=== PATIENT | female | born 1990 | race Caucasian/White ===

== ENCOUNTER 2019-03-01 16:51 | Emergency (ER) | payer BC ==
[2019-03-01 16:56] VITALS: BP 145/92; PULSE 94; RESP 18; TEMP 98.9
--- NOTE | 2019-03-01 18:39 | ED ---
General Adult HPI - General Chief complaint: Psychiatric Symptoms Stated complaint: Mental health Time Seen by Provider: 03/01/19 17:04 Source: patient, RN notes reviewed, old records reviewed Mode of arrival: ambulatory Limitations: no limitations - History of Present Illness Initial comments: 28-year-old female patient presents ED chief complaint of depression. Patient reports that she does take a necessary medication however has not been affected. Patient reports that the last 2 days she has been very sad. Crying in her room. Denies any suicidal or homicidal ideation. Denies a plan on hurting himself or hurting any other people. Denies any other complaints. Systemic: Pt denies fatigue, fever/chills, rash. Pt denies weakness, night sweats, weight loss. Neuro: Pt denies headache, visual disturbances, syncope or pre-syncope. HEENT: Pt denies ocular discharge or irritation, otalgia, rhinorrhea, pharyngitis or notable lymphadenopathy. Cardiopulmonary: Pt denies chest pain, SOB, heart palpitations, dyspnea on exertion. Abdominal/GI: Pt denies abdominal pain, n/v/d. : Pt denies dysuria, burning w/ urination, frequency/urgency. Denies new onset urinary or bowel incontinence. MSK: Pt denies myalgia, loss of strength or function in extremities. Neuro: Pt denies new onset weakness, paresthesias. - Related Data Home Medications Medication Instructions Recorded Confirmed Escitalopram [Lexapro] 20 mg PO HS 03/01/19 03/01/19 Omeprazole [PriLOSEC] 20 mg PO AC-BID 03/01/19 03/01/19 Allergies Allergy/AdvReac Type Severity Reaction Status Date / Time amoxicillin Allergy Rash/Hives Verified 03/01/19 18:39 Review of Systems ROS Statement: Those systems with pertinent positive or pertinent negative responses have been documented in the HPI. ROS Other: All systems not noted in ROS Statement are negative. Past Medical History Past Medical History: No Reported History, GERD/Reflux History of Any Multi-Drug Resistant Organisms: None Reported Additional Past Surgical History / Comment(s): cyst removed from hand Past Psychological History: Depression Smoking Status: Never smoker Past Alcohol Use History: None Reported Past Drug Use History: None Reported General Exam - General Exam Comments Initial Comments: Constitutional: NAD, AOX3, Pt has pleasant affect. HEENT: NC/AT, trachea midline, neck supple, no lymphadenopathy. Posterior pharynx non erythematous, without exudates. External ears appear normal, without discharge. Mucous membranes moist. Eyes PERRLA, EOM intact. There is no scleral icterus. No pallor noted. Cardiopulmonary: RRR, no murmurs, rubs or gallops, no JVD noted. Lungs CTAB in anterior and posterior clayton. No peripheral edema. Abdominal exam: Abdomen soft and non-distended. Abdomen non-tender to palpation in all 4 quadrants. Bowel sounds active in LLQ. No hepatosplenomegaly. No ecchymosis Neuro: CN II-XII grossly intact. No nuchal rigidity. No raccon eyes, no aaron sign, no hemotympanum. No cervical spinal tenderness. MSK: No posterior calf tenderness bilaterally, homans sign negative bilaterally. Posterior tibialis and radial pulse +2 bilaterally. Sensation intact in upper and lower extremities. Full active ROM in upper and lower extremities, 5/5 stregnth. Limitations: no limitations Course Vital Signs 03/01/19 16:54 Temperature 98.9 F Pulse Rate 94 Respiratory 18 Rate Blood Pressure 145/92 O2 Sat by Pulse 98 Oximetry Medical Decision Making - Medical Decision Making 28-year-old feel patient can see for evaluation of depression. Denies any suicidal or homicidal ideations. Denies any other complaints. Patient evaluated by psychiatric services. Cleared for discharge. Patient discharged with outpatient follow-up. Return precautions discussed. Case discussed with Dr. Leblanc. Disposition Clinical Impression: Depression Disposition: HOME SELF-CARE Condition: Stable Instructions (If sedation given, give patient instructions): Depression (ED) Additional Instructions: Patient to adhere to previously discussed treatment plan and will take medication(s) as directed. Patient to follow up with PCP in 1-2 days. Patient to return to ED if symptoms do not improve. Return to ER if condition worsens. Is patient prescribed a controlled substance at d/c from ED?: No Referrals: Edwige Dimas MD [Primary Care Provider] - 1-2 days
== END 2019-03-01 20:31 | disposition home or self-care (01) ==
LOC: EC 16:51
DX: F32.9 Major depressive disorder, single episode, unspecified (principal); K21.9 Gastro-esophageal reflux disease without esophagitis; Z79.899 Other long term (current) drug therapy; Z88.0 Allergy status to penicillin
CPT/HCPCS: 82075; 99284

== ENCOUNTER 2020-05-31 13:53 | Outpatient (CLI) | payer BC, OTHER ==
[2020-05-31] MEDS ORDERED: LACTATED RINGERS 1,000 ML IV SCH (15:00)
[2020-05-31 15:50] VITALS: BP 127/82; PULSE 119; RESP 18; TEMP 97.3
--- NOTE | 2020-07-06 19:15 | P.MSEPDOC ---
Presenting Problems - Arrival Data Date of Arrival on Unit: 05/31/20 Time of Arrival on Unit: 13:53 Mode of Transport: Ambulatory - Complaint OB-Reason for Admission/Chief Complaint: Possible Onset of Labor, César Bleeding Medical History - Information : 1 Para: 0 Term: 0 : 0 Abortions: Spontaneous or Elective: 0 Number of Living Children: 0 - Gestational Age Gestational Age by CHUN (wks/days): 33 Weeks and 4 Days Review of Systems - Review of Systems Constitutional: No problems Breast: No problems ENT: No problems Cardiovascular: No problems Respiratory: No problems Gastrointestinal: No problems Genitourinary: No problems Musculoskeletal: No problems Neurological: No problems Skin: No problems Vital Signs - Temperature Temperature: 97.3 F Temperature Source: Temporal Artery Scan - Pulse Right Pulse Rate: 119 Pulse Assessment Method: Automatic Cuff - Respirations Respiratory Rate: 18 Oxygen Delivery Method: Room Air O2 Sat by Pulse Oximetry: 97 - Blood Pressure Right Arm Blood Pressure: 127/82 Blood Pressure Mean: 97 Blood Pressure Source: Automatic Cuff Medical Screen Scoring (Pre) - Cervical Exam Dilation: 0 cm = 0 Membranes: Intact - Uterine Contractions Frequency: < 36 weeks = 6 Duration: > 40 seconds = 2 Intensity: N/A - Maternal Vital Signs Maternal Temperature: N/A Maternal Blood Pressure: N/A Signs of Preeclampsia: N/A Maternal Respirations: N/A - Maternal Trauma Maternal Trauma: N/A - Assessment - Baby A Baseline FHR: 150 Heart Rate - NICHD Category: Category I (Normal) = 0 NST: Reactive Position: N/A Station: N/A - Total Score - Baby A Total Score - Baby A: 8 - Total Score - Baby B Total Score - Baby B: 8 - Total Score - Baby C Total Score - Baby C: 8 - Level of Risk - Baby A Level of Risk - Baby A: Medium (6-9) - Level of Risk - Baby B Level of Risk - Baby B: Medium (6-9) - Level of Risk - Baby C Level of Risk - Baby C: Medium (6-9) Physician Notification (Pre) - Physician Notified Physician Notified Date: 05/31/20 Physician Notified Time: 14:20 New Order Received: Yes - Notification Comment Comment: Obtain FFN, amnisure, and cervical exam. Administer 1L of LR IV. Medical Screen Scoring (Post) - Cervical Exam Dilation: 0 cm = 0 Effacement: Exam Deferred Membranes: Intact - Uterine Contractions Frequency: < 36 weeks = 6 Duration: > 40 seconds = 2 Intensity: N/A - Maternal Vital Signs Maternal Temperature: N/A Maternal Blood Pressure: N/A Signs of Preeclampsia: N/A Maternal Respirations: N/A - Maternal Trauma Maternal Trauma: N/A - Total Score Total Score - Baby A: 8 Total Score - Baby B: 8 Total Score - Baby C: 8 - Post Treatment Level of Risk Post Treatment Level of Risk - Baby A: Medium (6-9) Post Treatment Level of Risk - Baby B: Medium (6-9) Post Treatment Level of Risk - Baby C: Medium (6-9) Physician Notification (Post) - Physician Notified Physician Notified Date: 05/31/20 Physician Notified Time: 15:54 Physician/Practitioner Notified:: Lashay Spoke With: Lashay New Order Received: Yes - Notification Comment Comment: Send FFN for processing. Disposition - Disposition OB Disposition: Triage Discharge Date: 05/31/20 Discharge Time: 17:50 I agree with the RN Medical Screening Exam: No Case reviewed; plan agreed upon as documented in EMR&OBIX.: No Comments: unable to access obix notes Diagnosis: complication
== END 2020-05-31 17:50 | disposition home or self-care (01) ==
LOC: FBPOP 13:53
PROVIDERS: ATTEND Obstetrics & Gynecology Obstetrics
DX: O26.93 Pregnancy related conditions, unspecified, third trimester (principal); Z3A.33 33 weeks gestation of pregnancy
CPT/HCPCS: 59025; 82731; 84112; 96360; 96361; 99213

== ENCOUNTER 2020-07-04 08:26 | Inpatient (IN) | payer OTHER ==
[2020-07-04] MEDS ORDERED: METHYLERGONOVINE 0.2 MG/ML 1 ML AMP IM PRN (09:47)
[2020-07-04] MEDS ORDERED: LIDOCAINE 0.5% (PF) 5 MG/ML (50 ML SDV) SQ PRN (09:47)
[2020-07-04] MEDS ORDERED: OXYTOCIN 10 UNIT/ML 1 ML VIAL IM PRN (09:47)
[2020-07-04] MEDS ORDERED: TERBUTALINE 1 MG/ML VIAL SQ PRN (09:47)
[2020-07-04] MEDS ORDERED: CARBOPROST TROMETHAMINE 250 MCG/ML 1 ML AMP IM PRN (09:47)
[2020-07-04] MEDS ORDERED: OXYTOCIN 30 UNITS/500 ML NS 30 UNIT in SALINE 1 500ML.BAG IV SCH ×2 (10:00→23:00)
[2020-07-04] MEDS: LACTATED RINGERS 1,000 ML IV SCH ×2 (10:37→16:58)
[2020-07-04 10:40] LABS: Basophils % (A) 0 %; Eosinophils # (A) 0.1 k/uL (0-0.7); Eosinophils % (A) 1 %; HCT 28.3 % (34.0-46.0); HGB 8.9 gm/dL (11.4-16.0); Hypochromasia Marked; Lymphocytes # (A) 1.4 k/uL (1.0-4.8); Lymphocytes % (A) 12 %; MCH 23.1 pg (25.0-35.0); MCHC 31.6 g/dL (31.0-37.0); Mean Platelet Volume 7.1; Microcytosis Slight; Monocytes # (A) 0.7 k/uL (0-1.0); Monocytes % (A) 6 %; Neutrophils # (A) 9.1 k/uL (1.3-7.7); Neutrophils % (A) 80 %; Platelet Count 374 k/uL (150-450); Poikilocytosis Slight; RBC 3.87 m/uL (3.80-5.40); RDW 14.7 % (11.5-15.5); WBC 11.4 k/uL (3.8-10.6)
[2020-07-04] MEDS ORDERED: BUTORPHANOL 1 MG/ML 1 ML VIAL IV PRN (13:38)
--- NOTE | 2020-07-04 13:43 | P.HPOB ---
History of Present Illness H&P Date: 07/04/20 Chief Complaint: 38-3/7 weeks, spontaneous rupture of membranes The patient is a 30-year-old 1 para 0 admitted at 38-3/7 weeks as established by first trimester ultrasound. She is admitted with documented spontaneous rupture of membranes and the category 1 heart rate tracing. Her has been essentially uncomplicated though she was treated with omeprazole for gastroesophageal reflux. She additionally has a history of depression. She is not currently taking any medications. She is known to be group B strep positive. Obstetrical history: 1 para 0 with current statistics listed in history present illness. EDC of 07/15/2020 was established by early ultrasound. Laboratory workup done Schutze blood type of O+ with a negative antibody screen. Rubella status is immune. Remainder of the laboratory workup was within normal limits. Early Glucola as well as second trimester Glucola were within normal limits and group B strep status is positive. Gynecologic history: Unremarkable with no history of any infections to include STDs. Review of Systems Review of systems is confined to history of present illness. Past Medical History Past Medical History: No Reported History, GERD/Reflux History of Any Multi-Drug Resistant Organisms: None Reported Additional Past Surgical History / Comment(s): cyst removed from hand Past Psychological History: Depression Smoking Status: Never smoker Past Alcohol Use History: None Reported Past Drug Use History: None Reported - Past Family History Mother Family Medical History: Diabetes Mellitus, GERD/Reflux Medications and Allergies Home Medications Medication Instructions Recorded Confirmed Type Omeprazole [PriLOSEC] 20 mg PO AC-BID 03/01/19 07/04/20 History Pnv,Calcium 72/Iron/Folic Acid 1 tab PO DAILY 05/31/20 05/31/20 History [ Plus Tablet] Sertraline [Zoloft] 50 mg PO DAILY 07/04/20 07/04/20 History Allergies Allergy/AdvReac Type Severity Reaction Status Date / Time amoxicillin Allergy Rash/Hives Verified 07/04/20 08:50 Exam Vital Signs Temp Pulse Resp BP Pulse Ox 07/04/20 09:46 98.4 F 80 16 142/93 07/04/20 08:53 98.4 F 94 16 148/92 97 Intake and Output 07/03/20 07/04/20 07/04/20 22:59 06:59 14:59 Other: Weight 133.356 kg In general, this is a well-developed, obese white female in no acute distress. Her heart has a regular rhythm and rate without murmur. Her lungs are clear to auscultation bilaterally in all clayton. Her abdomen is obese, gravid, nondistended, has normal active bowel sounds, soft, nontender, and without any palpable masses aside from the uterine fundus. Her extremities are without any cyanosis, clubbing, or significant edema and are nontender to palpation bilaterally. Digital cervical examination demonstrates the cervix to be closed, approximately 70%, the vertex in presentation at -3 station. Spontaneous rupture of membranes is documented. Results Result Diagrams: 07/04/20 10:09 Abnormal Lab Results - Last 24 Hours (Table) 07/04/20 Range/Units 10:09 WBC 11.4 H (3.8-10.6) k/uL Hgb 8.9 L (11.4-16.0) gm/dL Hct 28.3 L (34.0-46.0) % MCV 73.0 L (80.0-100.0) fL MCH 23.1 L (25.0-35.0) pg Neutrophils # 9.1 H (1.3-7.7) k/uL Assessment and Plan (1) Spontaneous rupture of membranes Current Visit: Yes Status: Acute Code(s): [id number] - SNOMED Code(s): 302544703 (2) with 38 completed weeks gestation Current Visit: Yes Status: Acute Code(s): Z3A.38 - 38 WEEKS GESTATION OF SNOMED Code(s): 95396377 (3) Mother positive for group B Streptococcus colonization Current Visit: Yes Status: Acute Code(s): P00.2 - AFFECTED BY MATERNAL INFEC/PARASTC DISEASES SNOMED Code(s): 50271731781078 Plan: The patient is admitted for active management of labor. Antibody prophylaxis has been started for group B strep per she has also had Pitocin augmentation started as she was ayala rather minimally despite rupture of membranes since this morning. She will have close maternal and surveillance and expectant management will be practiced. Her blood pressures have been slightly elevated but there are no other secondary signs of preeclampsia or any other concerns for same. The patient is a good candidate for either IV or epidural analgesia, whichever she may choose.
[2020-07-04 18:04] LABS: ALT 15 U/L (4-34); AST 22 U/L (14-36); African American GFR (CKD) >90 (>60 ml/min/1.73 sqM); Blood Urea Nitrogen 6 mg/dL (7-17); Non-African American GFR(CKD) >90 (>60 ml/min/1.73 sqM); Uric Acid 6.4 mg/dL (3.7-7.4)
[2020-07-04 18:14] LABS: INR 0.9 (<1.2); Prothrombin Time 10.1 sec (9.0-12.0)
[2020-07-04] MEDS ORDERED: LABETALOL 100 MG TAB PO ONE (20:38)
[2020-07-04] MEDS ORDERED: LABETALOL 5 MG/ML VIAL MDV IVP PRN ×3 (20:56)
[2020-07-04] MEDS ORDERED: hydrALAZINE HCL 20 MG/ML 1 ML VIAL IVP PRN (20:56)
[2020-07-04] MEDS ORDERED: fentaNYL (PF) 50 MCG/ML 5 ML AMP ONE (21:00)
[2020-07-04] MEDS ORDERED: ROPIVACAINE 5MG/ML 20ML VIAL ONE (21:00)
[2020-07-04] MEDS ORDERED: SODIUM CHLORIDE 0.9% 100 ML BAG ONE (21:00)
[2020-07-04] MEDS ORDERED: ceFAZolin 3 GM in SODIUM CHLORIDE 0.9% 100 ML IVPB ONE (21:41)
[2020-07-04] MEDS ORDERED: CITRIC ACID-SODIUM CITRATE 15 ML CUP PO ONE (21:41)
[2020-07-04] MEDS ORDERED: KETOROLAC 15 MG/ML 1 ML VIAL ONE (21:59)
[2020-07-04] MEDS ORDERED: ONDANSETRON 4 MG/2 ML VIAL ONE (21:59)
[2020-07-04] MEDS ORDERED: diphenhydrAMINE 50 MG/ML 1 ML VIAL ONE (21:59)
[2020-07-04] MEDS ORDERED: PHENYLEPHRINE-0.9% NACL SYG 1,000 MCG/10 ML SYRINGE ONE (21:59)
[2020-07-04] MEDS ORDERED: OXYTOCIN 10 UNIT/ML 1 ML VIAL ONE (21:59)
[2020-07-04] MEDS ORDERED: HYDROcodone/APAP 7.5-325MG 1 EACH TAB PO PRN (22:52)
[2020-07-04] MEDS ORDERED: ACETAMINOPHEN TAB 325 MG TAB PO PRN (22:52)
[2020-07-04] MEDS ORDERED: diphenhydrAMINE 50 MG/ML 1 ML VIAL IVP PRN ×2 (22:52)
[2020-07-04] MEDS ORDERED: SIMETHICONE 80 MG CHEWABLE PO PRN (22:52)
[2020-07-04] MEDS ORDERED: diphenhydrAMINE 50 MG CAP PO PRN (22:52)
[2020-07-04] MEDS ORDERED: LANOLIN CREAM 5 GM TUBE TOPICAL PRN (22:52)
[2020-07-04] MEDS ORDERED: KETOROLAC 15 MG/ML 1 ML VIAL IVP PRN (22:52)
[2020-07-04] MEDS ORDERED: NALOXONE 0.4 MG/ML 1 ML VIAL IV PRN (22:52)
[2020-07-04] MEDS ORDERED: ZOLPIDEM 5 MG TAB PO PRN (22:52)
[2020-07-04] MEDS ORDERED: METOCLOPRAMIDE 5 MG/ML 2 ML VIAL IVP PRN (22:52)
[2020-07-04] MEDS ORDERED: ONDANSETRON 4 MG/2 ML VIAL IVP PRN (22:52)
[2020-07-04] MEDS ORDERED: diphenhydrAMINE 25 MG CAP PO PRN (22:52)
[2020-07-04] MEDS ORDERED: MAGNESIUM SULFATE-WATER PMX 4 GM in WATER FOR INJECTION 1 100ML.BAG IVPB ONE (22:55)
--- NOTE | 2020-07-04 23:05 | P.OP ---
Date of Procedure: 07/04/20 Preoperative Diagnosis: #1. 38-3/7 weeks, spontaneous rupture of membranes #2. Severe preeclampsia remote from delivery #3. Arrest of dilation and descent Postoperative Diagnosis: Same plus #4. Occiput transverse position Procedure(s) Performed: #1. Primary low transverse section Anesthesia: epidural Surgeon: Segundo Hargrove Rail Bonder #1: Emerson Rodriguez Estimated Blood Loss (ml): 550 IV fluids (ml): 500 Urine output (ml): 50 Pathology: other (Placenta) Condition: stable Disposition: floor Operative Findings: Preoperatively, the patient had been admitted to the hospital at 38-3/7 weeks with documented spontaneous rupture of membranes and her cervix closed, 70%, with the vertex in presentation at -3 station or higher. She was started on antibody prophylaxis for group B strep. She additionally had Pitocin augmentation started. She made very minimal progress throughout the day and had been ruptured for approximate 17 hours at the time of surgery. Prior to the decision to proceed with surgery, she began to have moderately elevated blood pressures. Upon admission, her blood pressures were in the range of 1:30 to 140/70-80. Later in the day, they were as high as 160-170 and even 180/80 to 100s. Oral Lisa ball had been administered at the onset of the elevation in blood pressure with a continued to rise. As result, the 18 was called to administer labetalol and the patient was requesting an epidural. Epidural was placed first and failed to lower her blood pressures any perceivable way. Her cervical check demonstrated the cervix to be minimally changed throughout the day with the vertex in presentation at -3-4 station. She also carried the diagnosis of probable macrosomia. Given these findings with a new diagnosis of severe preeclampsia based solely on blood pressures and her remoteness from delivery in the face of macrosomia, the decision was made to proceed with primary low-transverse section. She was taken the operating room where she was delivered of a viable 8 lbs. 9 oz. baby boy with Apgars of 9 at 1 minute and 9 at 5 minutes delivered in the right occiput transverse position. The placenta was delivered manually, intact, and grossly normal with a grossly normal three-vessel cord. The uterus, tubes, and ovaries were entirely normal to inspection. Description of Procedure: The patient was prepped and draped in usual fashion after epidural anesthesia was bolused by the anesthesiologist. A Pfannenstiel incision was made and extended into the abdominal cavity without difficulty. The bladder peritoneum was elevated, incised, and reflected distally. A 2 cm incision was made in the transverse plane to enter the uterus in the lower uterine segment. Clear fluid was noted again. The incision was extended in both directions using the bandage scissors. The head was delivered up through the incision where the nose and mouth were thoroughly suctioned. The remainder of the was delivered onto the field where the cord was doubly clamped, cut, and the passed resuscitative measures with weight and Apgars as noted above. cord blood was collected. A segment of cord was doubly clamped, cut, and set aside should cord gases become necessary. The placenta was delivered manually and intact as noted above. The uterus was exteriorized and the interior cavity the uterus swept of any remaining placental or membranous fragments. The margins of the incision were grasped with anything clamps and the incision closed in 2 layers. The first layer was a running locking stitch of 0 chromic catgut from margin to margin followed by a running imbricating stitch of 0 chromic catgut from margin to margin. Hemostasis appeared to be excellent. The posterior cul-de-sac was suctioned with a guard and the uterine and ovarian findings were normal as noted above. The uterus was replaced within the abdominal cavity and the gutters swept of any remaining blood, fluid, or clot. The incision was reexamined and found to be hemostatic. The parietal peritoneum was loosely reapproximated and layer of muscles examined and made hemostatic with the Bovie. The fascia was closed with 2 running stitches of 0 Vicryl proceeding from the lateral margins to the midpoint. The subcutaneous tissues were irrigated, made hemostatic with the Bovie, and reapproximated with a running stitch of 30 plain catgut. The skin was reapproximated with a running subcuticular stitch of 4-0 Vicryl followed by half-inch Steri-Strips placed with Mastisol. Estimated blood loss for the case was approximate 550 mL. All sponge, instrument, needle counts were correct. There were no complications. The patient tolerated the procedure well and proceeded to the recovery room in stable condition. Both mother and are resting comfortably in recovery.
[2020-07-05] MEDS: MAGNESIUM SULFATE-WATER PMX 20 GM in WATER FOR INJECTION 1 500ML.BAG IV SCH ×3 (00:24→18:43)
[2020-07-05] MEDS: LACTATED RINGERS 1,000 ML IV SCH ×2 (02:57→06:14)
[2020-07-05 07:16] LABS: Basophils % (A) 0 %; Eosinophils % (A) 0 %; HCT 26.4 % (34.0-46.0); Hypochromasia Marked; Lymphocytes # (A) 1.3 k/uL (1.0-4.8); Lymphocytes % (A) 10 %; MCH 22.7 pg (25.0-35.0); MCHC 30.4 g/dL (31.0-37.0); MCV 74.5 fL (80.0-100.0); Mean Platelet Volume 6.8; Microcytosis Slight; Monocytes # (A) 0.6 k/uL (0-1.0); Monocytes % (A) 5 %; Neutrophils # (A) 10.9 k/uL (1.3-7.7); Neutrophils % (A) 83 %; Platelet Count 337 k/uL (150-450); Poikilocytosis Slight; RBC 3.55 m/uL (3.80-5.40); WBC 13.1 k/uL (3.8-10.6)
--- NOTE | 2020-07-05 10:18 | P.PNOBGPC ---
Subjective - Subjective Interval history: The patient denies any significant symptoms for magnesium and is tolerating it well. She does report that she is hungry and would like to eat. She also feels more than capable of getting up to use the bathroom on her own. Patient reports: Reports appetite normal, Reports voiding normally, Reports pain well controlled, Reports ambulating normally (Remains at relative bedrest secondary to magnesium sulfate and preeclamptic concerns.) : doing well Objective - Vital Signs Latest vital signs: Vital Signs Temp Pulse Pulse Resp BP Pulse Ox 07/05/20 09:00 99.0 F 96 16 140/94 99 07/05/20 08:00 18 07/05/20 07:00 101 H 16 134/73 98 07/05/20 06:00 102 H 16 131/67 97 07/05/20 05:00 109 H 16 133/87 97 07/05/20 04:00 109 H 16 128/68 96 07/05/20 03:08 97.1 F L 108 H 16 126/68 97 07/05/20 02:00 98.1 F 110 H 16 137/78 97 07/05/20 01:30 104 H 16 140/74 07/05/20 01:04 113 H 16 133/76 98 07/05/20 01:01 107 H 16 133/76 97 07/05/20 00:46 104 H 16 133/79 98 07/05/20 00:34 97.7 F 106 H 16 131/76 98 07/05/20 00:31 107 H 16 131/76 98 07/05/20 00:16 109 H 16 129/83 98 07/05/20 00:04 107 H 16 138/72 97 07/05/20 00:01 103 H 103 H 16 138/72 97 07/05/20 00:00 103 H 16 138/72 07/04/20 23:49 105 H 16 143/81 96 07/04/20 23:34 98 16 138/83 99 07/04/20 23:19 97.4 F L 95 16 134/80 100 07/04/20 23:04 96.9 F L 97 16 138/96 100 Intake and Output 07/04/20 07/05/20 07/05/20 22:59 06:59 14:59 Intake Total 748.333 Output Total 1500 350 Balance -1500 398.333 Intake: IV 160 Intake, IV Titration 438.333 Amount Magnesium Sulfate-Water 438.333 Pmx 20 gm In Water For Injection 1 500ml.bag @ 2 GM/HR 50 mls/hr IV .Q10H [facility] Rx#:[id number] Oral 150 Output: Urine 950 350 Estimated Blood Loss 550 Other: Voiding Method Indwelling Catheter # Voids 1 1 - Exam Extremities: Present: normal Abdomen: Present: normal appearance, soft. Absent: distention, tenderness Incision: Present: normal, dry, intact Uterus: Present: normal, firm (The uterine fundus is tonic and appropriately tender just below the umbilicus.) - Labs Labs: Abnormal Lab Results - Last 24 Hours (Table) 07/04/20 07/04/20 07/04/20 Range/Units 10:09 17:36 17:36 WBC 11.4 H (3.8-10.6) k/uL RBC (3.80-5.40) m/uL Hgb 8.9 L (11.4-16.0) gm/dL Hct 28.3 L (34.0-46.0) % MCV 73.0 L (80.0-100.0) fL MCH 23.1 L (25.0-35.0) pg MCHC (31.0-37.0) g/dL Neutrophils # 9.1 H (1.3-7.7) k/uL APTT 19.0 L (22.0-30.0) sec BUN 6 L (7-17) mg/dL 07/05/20 Range/Units 06:59 WBC 13.1 H (3.8-10.6) k/uL RBC 3.55 L (3.80-5.40) m/uL Hgb 8.0 L (11.4-16.0) gm/dL Hct 26.4 L (34.0-46.0) % MCV 74.5 L (80.0-100.0) fL MCH 22.7 L (25.0-35.0) pg MCHC 30.4 L (31.0-37.0) g/dL Neutrophils # 10.9 H (1.3-7.7) k/uL APTT (22.0-30.0) sec BUN (7-17) mg/dL Assessment and Plan (1) Spontaneous rupture of membranes Current Visit: Yes Status: Acute Code(s): [id number] - SNOMED Code(s): 147648573 (2) with 38 completed weeks gestation Current Visit: Yes Status: Acute Code(s): Z3A.38 - 38 WEEKS GESTATION OF SNOMED Code(s): 27527105 (3) Mother positive for group B Streptococcus colonization Current Visit: Yes Status: Acute Code(s): P00.2 - AFFECTED BY MATERNAL INFEC/PARASTC DISEASES SNOMED Code(s): 25590821627015 (4) Preeclampsia Current Visit: Yes Status: Acute Code(s): O14.90 - UNSPECIFIED PRE-ECLAMP NORMA, UNSPECIFIED TRIMESTER SNOMED Code(s): 219021574 (5) Status post section Current Visit: Yes Status: Acute Code(s): Z98.891 - HISTORY OF UTERINE SCAR FROM PREVIOUS SURGERY SNOMED Code(s): 475237404 Plan: Continue magnesium sulfate until 24 hours , proximal 2300 tonight. I will have advanced her diet to regular and have asked the nurse to discontinue extra IV fluids and continue only with magnesium. Montero catheter can also be removed so long as the patient is able to ambulatory the bathroom adequately. Blood pressures at this time remain in the stable range without any additional medications. We will watch closely as she comes off of magnesium tonight.
[2020-07-05] MEDS: IBUPROFEN 600 MG TAB PO PRN ×2 (14:11→21:19)
[2020-07-05] MEDS: SENNOSIDES-DOCUSATE SODIUM 1 EACH TAB PO SCH ×2 (18:47→21:19)
[2020-07-06] MEDS: HYDROcodone/APAP 5-325MG 1 EACH TAB PO PRN ×2 (03:47→08:18)
[2020-07-06] MEDS: SENNOSIDES-DOCUSATE SODIUM 1 EACH TAB PO SCH ×2 (08:18→21:05)
--- NOTE | 2020-07-06 09:12 | P.PNOBGPC ---
Subjective - Subjective Principal diagnosis: POD 2 LTCS, severe preeclampsia Interval history: Patient did well overnight, she is ambulating and voiding without difficulty. She states she is feeling well and pain is well-controlled. She is tolerating a regular diet without nausea or vomiting. Blood pressures remained 130s over 80s to 90s. Patient reports: Reports appetite normal, Reports voiding normally, Reports pain well controlled, Reports ambulating normally : doing well, nursing well, bottle feeding Objective - Vital Signs Latest vital signs: Vital Signs Temp Pulse Resp BP Pulse Ox 07/06/20 08:24 97.7 F 88 16 134/93 07/05/20 23:00 98.5 F 100 16 133/81 07/05/20 22:00 98.1 F 104 H 16 130/88 07/05/20 21:00 97.5 F L 118 H 16 139/85 07/05/20 20:00 97.5 F L 99 16 139/86 07/05/20 19:00 102 H 16 140/88 99 07/05/20 17:53 98.2 F 97 16 140/96 07/05/20 16:59 103 H 16 142/92 99 07/05/20 15:30 98.3 F 103 H 18 138/88 99 07/05/20 14:00 99 18 136/86 99 07/05/20 13:00 98.3 F 96 16 144/90 99 07/05/20 12:00 98.1 F 103 H 16 140/100 99 07/05/20 11:00 98.5 F 94 16 136/88 07/05/20 10:00 109 H 16 99 Intake and Output 07/05/20 07/06/20 07/06/20 22:59 06:59 14:59 Intake Total 967.5 480 Output Total 2700 0 Balance -1732.5 0 480 Intake: IV 300 Intake, IV Titration 477.5 Amount Magnesium Sulfate-Water 477.5 Pmx 20 gm In Water For Injection 1 500ml.bag @ 2 GM/HR 50 mls/hr IV .Q10H [facility] Rx#:[id number] Oral 190 480 Output: Urine 2700 0 Other: # Voids 1 0 - Exam Extremities: Present: normal, edema Abdomen: Present: normal appearance Incision: Present: normal Uterus: Present: normal, firm Assessment and Plan (1) Arrest of descent, delivered, current hospitalization Current Visit: Yes Status: Acute Code(s): O62.1 - SECONDARY UTERINE INERTIA SNOMED Code(s): 99878347 (2) Arrest of dilation, delivered, current hospitalization Current Visit: Yes Status: Acute Code(s): O62.1 - SECONDARY UTERINE INERTIA SNOMED Code(s): 14494229 (3) malposition, delivered, current hospitalization Current Visit: Yes Status: Acute Code(s): O32.9XX0 - MATERNAL CARE FOR MALPRESENTATION OF FETUS, UNSP, UNSP SNOMED Code(s): 561862874 (4) Mother positive for group B Streptococcus colonization Current Visit: Yes Status: Acute Code(s): P00.2 - AFFECTED BY MATERNAL INFEC/PARASTC DISEASES SNOMED Code(s): 57123761327174 (5) Preeclampsia Current Visit: Yes Status: Acute Code(s): O14.90 - UNSPECIFIED PRE-ECLAMPSI A, UNSPECIFIED TRIMESTER SNOMED Code(s): 156075921 (6) with 38 completed weeks gestation Current Visit: Yes Status: Acute Code(s): Z3A.38 - 38 WEEKS GESTATION OF SNOMED Code(s): 19507400 (7) Spontaneous rupture of membranes Current Visit: Yes Status: Acute Code(s): AND6047 - SNOMED Code(s): 551789043 Plan: Patient continues to do well postoperatively. We will monitor blood pressures today and consider labetalol if needed. Anticipate discharge home tomorrow
[2020-07-06] MEDS ORDERED: SERTRALINE 50 MG TAB PO SCH ×2 (09:45→10:13)
[2020-07-06] MEDS: LABETALOL 100 MG TAB PO SCH ×2 (10:10→21:04)
[2020-07-06] MEDS: IBUPROFEN 600 MG TAB PO PRN ×2 (10:17→16:48)
[2020-07-07] MEDS: IBUPROFEN 600 MG TAB PO PRN (03:18)
--- NOTE | 2020-07-07 08:25 | P.DS ---
Providers Date of admission: 07/04/20 09:16 Expected date of discharge: 07/07/20 Attending physician: Lala Alamo Primary care physician: Stated None - Discharge Diagnosis(es) (1) Arrest of descent, delivered, current hospitalization Current Visit: Yes Status: Acute (2) Arrest of dilation, delivered, current hospitalization Current Visit: Yes Status: Acute (3) malposition, delivered, current hospitalization Current Visit: Yes Status: Acute (4) Mother positive for group B Streptococcus colonization Current Visit: Yes Status: Acute (5) Preeclampsia Current Visit: Yes Status: Acute (6) with 38 completed weeks gestation Current Visit: Yes Status: Acute (7) Spontaneous rupture of membranes Current Visit: Yes Status: Acute Hospital Course: This is a 30-year-old 1 para 0 that presented to labor and delivery at 38-3/7 weeks with spontaneous rupture of membranes. Patient was admitted to labor and delivery and made very slow progress throughout labor. Patient was known to be group beta strep positive therefore antibiotics prophylaxis was begun. During labor patient was noted to have elevated blood pressures, patient was diagnosed with severe preeclampsia and decision was made for primary C- section secondary to remote from delivery. Patient agreed with the decision and was taken back for a primary . was performed without difficulty for further details on the please see the operative report. Patient delivered a liveborn male 8 lbs. 9 oz. with Apgars of 9 and 9 at one and 5 minutes respectively. Patient's postoperative course has been uneventful. Patient did receive magnesium for 24 hours postdelivery secondary to diagnosis of preeclampsia. Patient was started on labetalol 100 mg twice daily in addition for blood pressures 130s to 140s over 90s. Patient is feeling well. On this postoperative day #3. She is ambulating and voiding without difficulty. She is tolerating a regular diet without nausea or vomiting. She states her pain is well-controlled and she would like discharge home today. Patient Condition at Discharge: Good Plan - Discharge Summary New Discharge Prescriptions: No Action Omeprazole [PriLOSEC] 20 mg PO AC-BID Pnv,Calcium 72/Iron/Folic Acid [ Plus Tablet] 1 tab PO DAILY Sertraline [Zoloft] 50 mg PO DAILY Discharge Medication List Omeprazole [PriLOSEC] 20 mg PO AC-BID 10/12/19 [History] Pnv,Calcium 72/Iron/Folic Acid [ Plus Tablet] 1 tab PO DAILY 05/31/20 [History] Sertraline [Zoloft] 50 mg PO DAILY 07/04/20 [History] Follow up Appointment(s)/Referral(s): Lala Alamo DO [Doctor of Osteopathic Medicine] - 1 Week Patient Instructions/Handouts: (DC), (GEN) Activity/Diet/Wound Care/Special Instructions: Patient can expect menstrual-like bleeding for 4-6 weeks postdelivery, she is to continue with labetalol 100 mg twice daily. She is to call the office should she experience headaches unrelieved by Tylenol, abdominal pain not associated with incisional pain or other concerns. She is to be seen 1 week postoperatively for blood pressure check and routine postoperative check. Discharge Disposition: HOME SELF-CARE
[2020-07-07] MEDS ORDERED: PRENATAL VIT-IRON-FOLIC ACID 1 EACH CAP PO SCH (09:00)
[2020-07-07 11:49] VITALS: BP 146/84; PULSE 91; RESP 18; TEMP 98.4
[2020-07-07] MEDS: LABETALOL 100 MG TAB PO SCH (12:06)
[2020-07-07] MEDS: SENNOSIDES-DOCUSATE SODIUM 1 EACH TAB PO SCH (12:15)
== END 2020-07-07 12:05 | disposition home or self-care (01) | DRG 788 ==
LOC: FBPOP 08:26 → 4FBP 09:16
PROVIDERS: ADMIT Obstetrics & Gynecology; ATTEND Obstetrics & Gynecology Obstetrics
PROC: 10D00Z1 Extraction of Products of Conception, Low, Open Approach (ICD-10-PCS; principal; 2020-07-04 22:35)
DX: O99.824 Streptococcus B carrier state complicating childbirth (principal); O14.14 Severe pre-eclampsia complicating childbirth; Z3A.38 38 weeks gestation of pregnancy; Z37.0 Single live birth; O99.62 Diseases of the digestive system complicating childbirth; O62.1 Secondary uterine inertia; K21.9 Gastro-esophageal reflux disease without esophagitis; O99.344 Other mental disorders complicating childbirth; F32.9 Major depressive disorder, single episode, unspecified; O99.214 Obesity complicating childbirth; O36.63X0 Maternal care for excessive fetal growth, third trimester, not applicable or unspecified; O32.2XX0 Maternal care for transverse and oblique lie, not applicable or unspecified; Z79.899 Other long term (current) drug therapy; Z83.3 Family history of diabetes mellitus; Z83.79 Family history of other diseases of the digestive system; Z88.0 Allergy status to penicillin; Z98.890 Other specified postprocedural states; E66.9 Obesity, unspecified
CPT/HCPCS: 59025; 82565; 84112; 84450; 84460; 84520; 84550; 85025; 85610; 85730; 86850; 86900; 86901; 88307; 99213

== ENCOUNTER → 2021-09-16 | Outpatient (CLI) | payer OTHER ==
--- NOTE | 2021-09-16 17:28 | US ---
EXAMINATION TYPE: US transvaginal DATE OF EXAM: 09/16/2021 COMPARISON: NONE CLINICAL HISTORY: R10.2 PELVIC PAIN. TECHNIQUE: TV. Transabdominal sonographic images of the pelvis were acquired. Transvaginal sonogra phic images were medically necessary to better assess the following anatomy: EXAM MEASUREMENTS: Uterus: 8.4 x 4.6 x 6.1 cm Endometrial Stripe: 1.1 cm Right Ovary: 1.9 x 1.3 x1.2 cm Left Ovary: 2.3 x 1.9 x 2.7 cm 1. Uterus: Anteverted wnl 2. Endometrium: wnl 3. Right Ovary: wnl 4. Left Ovary: wnl 5. Bilateral Adnexa: wnl 6. Posterior cul-de-sac: wnl IMPRESSION: Normal transvaginal pelvic sonogram.
== END | disposition home or self-care (01) ==
LOC: RADUSWWP 17:02
PROVIDERS: ATTEND Obstetrics & Gynecology Obstetrics
DX: R10.2 Pelvic and perineal pain (principal)
CPT/HCPCS: 76830

== ENCOUNTER → 2022-04-21 | Outpatient (CLI) | payer MEDICAID ==
[2022-04-21 23:15] LABS: Basophils # (A) 0.06 X 10*3/uL (0.00-0.10); Basophils % (A) 0.6 %; Eosinophils # (A) 0.28 X 10*3/uL (0.04-0.35); Eosinophils % (A) 2.7 %; HCT 35.1 % (37.2-46.3); HGB 10.3 g/dL (12.0-15.0); Immature Grans, Automated 0.4 %; Lymphocytes # (A) 2.05 X 10*3/uL (0.90-5.00); Lymphocytes % (A) 20.1 %; MCH 22.8 pg (27.0-32.0); MCHC 29.3 g/dL (32.0-37.0); MCV 77.8 fL (80.0-97.0); Mean Platelet Volume 10.1 fL (9.5-12.2); Monocytes # (A) 0.61 X 10*3/uL (0.20-1.00); NRBC Per 100 WBC 0 /100 WBCS (0.0-0.0); Neutrophils # (A) 7.15 X 10*3/uL (1.80-7.70); Neutrophils % (A) 70.2 %; Platelet Count 440 X 10*3/uL (140-440); RBC 4.51 X 10*6/uL (4.10-5.20); RDW 15.7 % (11.5-14.5); WBC 10.19 X 10*3/uL (4.50-10.00)
[2022-04-21 23:58] LABS: % Iron Saturation 4.54 (12.00-45.00); Ferritin 28.8 ng/mL (10.0-291.0)
== END | disposition home or self-care (01) ==
LOC: LABWHC1 15:22
PROVIDERS: ATTEND Internal Medicine
DX: D50.0 Iron deficiency anemia secondary to blood loss (chronic) (principal)
CPT/HCPCS: 36415; 82607; 82728; 82746; 83540; 83550; 85025

== ENCOUNTER → 2023-01-05 | Outpatient (CLI) | payer MEDICAID ==
--- NOTE | 2023-01-05 16:04 | XR ---
EXAMINATION TYPE: XR chest 2V DATE OF EXAM: 01/05/2023 COMPARISON: NONE TECHNIQUE: PA and lateral views submitted. HISTORY: Cough FINDINGS: The lungs are clear and there is no pneumothorax, pleural effusion, or focal pneumonia. Heart mildl y enlarged and no overt failure. Osseous structures demonstrate hypertrophic and degenerative changes of the spine. There is left suprahilar and hilar soft tissue prominence. Coarsened interstitium. IMPRESSION: 1. There is left suprahilar soft tissue prominence underlying mass or adenopathy in the differential diagnosis. Correlate with CT scan of the chest. 2. Coarsened interstitium correlate for bronchitis.
[2023-01-05 17:12] LABS: BUN/Creat Ratio 15.71 Ratio (12.00-20.00); Calcium 9.5 mg/dL (8.7-10.3); Carbon Dioxide 23.9 mmol/L (21.6-31.8); Chloride 103 mmol/L (96-109); Glucose 104 mg/dL (70-110); Potassium 4.9 mmol/L (3.5-5.5); Sodium 139 mmol/L (135-145)
== END | disposition home or self-care (01) ==
LOC: LABWHC1 11:13
PROVIDERS: ATTEND Family Medicine
DX: J18.9 Pneumonia, unspecified organism (principal); E04.9 Nontoxic goiter, unspecified; R59.9 Enlarged lymph nodes, unspecified; J40 Bronchitis, not specified as acute or chronic
CPT/HCPCS: 36415; 71046; 80048; 84145

== ENCOUNTER → 2023-01-11 | Outpatient (CLI) | payer OTHER ==
--- NOTE | 2023-01-11 10:25 | US ---
EXAMINATION TYPE: US thyroid st tissue head/neck DATE OF EXAM: 01/11/2023 COMPARISON: NONE CLINICAL INDICATION: Female, 32 years old with history of E04.9 NONTOXIC GOITER, UNSPECIFIED; History of thyroid nodule GLAND SIZE: Right Lobe: 5.7 x 2.9 x 3.6 cm Overall Parenchyma: homogenous Left Lobe: 4.2 x 1.1 x 1.3 cm Overall Parenchyma: homogeneous Isthmus Thickness: 0.3 cm NODULES RIGHT: # of nodules measured on right: 1 1. 3.9 X 2.7 x 3.1 cm, mid, mixed cystic and solid, isoechoic nodule, which is wider than tall, wit h smooth margins, without echogenic foci. Prior size: no prior here LEFT: # of nodules measured on left: ISTHMUS: # of nodules measured in the isthmus: 0 Bilateral neck scanned, no evidence of lymphadenopathy. IMPRESSION: TR3 lesion. Mildly suspicious. Fine-needle biopsy recommended given size greater than 2.5 cm. 2017 ACR TI-RADS LEVEL: TR3 *Highest TI-RADS level nodule reported
== END | disposition home or self-care (01) ==
LOC: RADUSWWP 09:29
PROVIDERS: ATTEND Family Medicine
DX: E04.1 Nontoxic single thyroid nodule (principal)
CPT/HCPCS: 76536

== ENCOUNTER → 2023-01-16 | Outpatient (CLI) | payer MEDICAID ==
--- NOTE | 2023-01-16 09:40 | CT ---
EXAMINATION TYPE: CT chest wo con CT DLP: 573.2 mGycm, Automated exposure control for dose reduction was used. DATE OF EXAM: 01/16/2023 9:11 AM COMPARISON: Chest radiograph from 01/05/2023. CLINICAL INDICATION:Female, 32 years old with history of R93.89 abn findings, Chest pain, shortness o f breath, and abnormal findings on chest x-ray. Hx of pneumonia. TECHNIQUE: Multiple axial images were obtained through the chest. Sagittal and coronal reformats were created for review. Contrast used: mL of (None if empty) Oral contrast used: (None if empty) FINDINGS: LUNGS/ PLEURA: Left lower lobe superior segment calcified granuloma. No pneumothorax or left pleural effusion. Right lower lobe demonstrates some streaky atelectasis/scarring. There is calcified lesion near the p eriphery within the right lower lobe posteriorly with tethering of the parenchyma. There is mild pulm onary vascular congestion within the right lower lung and right middle lobe. Possible trace right ple ural effusion. No evidence of pneumothorax on the right. AIRWAY: Patent and unremarkable. HEART: The heart is mildly enlarged for size. MEDIASTINUM: Soft tissue extending around the right hilum with scattered calcifications are present. Left pulmonary hilum also demonstrates calcified lymph nodes. VASCULATURE: No aortic aneurysm. MUSCULOSKELETAL: No acute osseous abnormalities SOFT TISSUES/LYMPH NODES: Unremarkable. LOWER NECK: Of the nodular goiter on the right thyroid gland. UPPER ABDOMEN: Diffuse low-attenuation to the liver parenchyma. IMPRESSION: 1. Suspected sequela of prior infection with conglomerate soft tissue around the right pulmonary hil um and to lesser extent the left pulmonary hilum with calcifications. Suspected granuloma noted in th e left lobe superior segment. Additional right lower lobe partially calcified nodule near the periphe ry with tethering of the parenchyma. There is pulmonary vascular congestion predominantly in the righ t lower lung and right middle lobe possibly secondary to conglomerate soft tissue around the right pu lmonary hilum affecting drainage. Short-term follow-up recommended to ensure resolution.. 2. Hepatic steatosis 3. Multinodular right thyroid gland as seen on prior ultrasound.
== END | disposition home or self-care (01) ==
LOC: RADCTMAIN 08:44
PROVIDERS: ATTEND Family Medicine
DX: R91.1 Solitary pulmonary nodule (principal); R93.89 Abnormal findings on diagnostic imaging of other specified body structures; K76.0 Fatty (change of) liver, not elsewhere classified; E04.2 Nontoxic multinodular goiter; Z87.09 Personal history of other diseases of the respiratory system
CPT/HCPCS: 71250

== ENCOUNTER 2023-01-23 13:20 | Inpatient (IN) | payer MEDICAID, OTHER ==
--- NOTE | 2023-01-23 13:59 | ED ---
URI HPI - General Chief Complaint: Upper Respiratory Infection Stated Complaint: COUGHING UP BLOOD Time Seen by Provider: 01/23/23 13:28 Source: patient, RN notes reviewed Mode of arrival: ambulatory Limitations: no limitations - History of Present Illness Initial Comments: This is a 32-year-old female who presents to the emergency department for hemoptysis. She states that she's had an ongoing cough for approximately one month, and yesterday she started coughing up blood. She went to urgent care in early December and had a chest x-ray done, which she states showed pneumonia and an enlarged heart. She was put on a course of antibiotics and had another chest x-ray done approximately one week later. This did not demonstrate pneumonia, but did again demonstrate the enlarged heart. She was then started on a second round of antibiotics, but has continued to have no improvement. Reports associated shortness of breath and difficulty catching her breath. Denies any chest pain. Denies any history of hemoptysis prior to yesterday. Also denies any history of tobacco use and she denies having any respiratory illnesses such as asthma. Denies any fevers, chills, sore throat, palpitations, abdominal pain, nausea, vomiting, diarrhea, back pain, or headaches. MD Complaint: cough Onset/Timin -: month(s) - Related Data Home Medications Medication Instructions Recorded Confirmed Omeprazole Magnesium [PriLOSEC OTC] 40 mg PO HS 01/23/23 01/23/23 Sertraline [Zoloft] 150 mg PO HS 01/23/23 01/23/23 Allergies Allergy/AdvReac Type Severity Reaction Status Date / Time amoxicillin Allergy Rash/Hives Verified 01/23/23 19:33 cefuroxime [From Ceftin] Allergy Rash/Hives Verified 01/23/23 19:33 ciprofloxacin [From Cipro] Allergy Rash/Hives Verified 01/23/23 19:33 clindamycin Allergy Rash/Hives Verified 01/23/23 19:33 Review of Systems ROS Statement: Those systems with pertinent positive or pertinent negative responses have been documented in the HPI. ROS Other: All systems not noted in ROS Statement are negative. Past Medical History Past Medical History: GERD/Reflux Additional Past Medical History / Comment(s): low iron History of Any Multi-Drug Resistant Organisms: None Reported Past Surgical History: Section Additional Past Surgical History / Comment(s): cyst removed from hand Past Psychological History: Depression Smoking Status: Never smoker Past Alcohol Use History: None Reported Past Drug Use History: None Reported - Past Family History Mother Family Medical History: Diabetes Mellitus, GERD/Reflux General Exam Limitations: no limitations General appearance: alert, in no apparent distress Head exam: Present: atraumatic, normocephalic, normal inspection Respiratory exam: Present: normal lung sounds bilaterally. Absent: respiratory distress, wheezes, rales, rhonchi, stridor Cardiovascular Exam: Present: regular rate, normal rhythm, normal heart sounds. Absent: systolic murmur, diastolic murmur, rubs, gallop, clicks Neurological exam: Present: alert, oriented X3, CN II-XII intact Psychiatric exam: Present: normal affect, normal mood Skin exam: Present: warm, dry, intact, normal color. Absent: rash Course Vital Signs 01/23/23 01/23/23 13:23 18:26 Temperature 97.3 F L 98.6 F Pulse Rate 118 H 101 H Respiratory 20 18 Rate Blood Pressure 144/94 144/98 O2 Sat by Pulse 97 97 Oximetry Medical Decision Making - Medical Decision Making This is a 32-year-old female who presents to the emergency department for hemoptysis. Was pt. sent in by a medical professional or institution? @ -No Did you speak to anyone other than the patient for history? @ -No Did you review nursing and triage notes? @ -Yes, and I agree, it is accurate with regards to the patient's symptoms. Were old charts reviewed? @ -No Differential Diagnosis? @ -Differential Cough: Influenza, Covid, RSV, croup, allergic rhinitis, GERD, pneumonia, bronchitis, PE, COPD, viral pharyngitis, streptococcal pharyngitis, this is not meant to be an all-inclusive list. EKG interpreted by me (3pts min.)? @ -EKG interpreted by me demonstrating the following: Sinus tachycardia. Ventricular rate 105 beats per minute, RI interval 158 ms, QRS duration 96 ms, QTC 415 milliseconds. X-rays interpreted by me (1pt min.)? @ -Chest x-ray obtained. My interpretation identifies a possible right lower lobe infiltrate. CT interpreted by me (1pt min.)? @ -CTA of the chest was obtained. My interpretation identifies no evidence of a pulmonary embolus. U/S interpreted by me (1pt. min.)? @ -Not obtained What testing was considered but not performed? (CT, X-rays, U/S, labs)? Why? @ -None What meds were considered but not given? Why? @ -None Did you discuss the management of the patient with other professionals? @ -Yes, Dr. Guthrie, who accepts the patient for admission. Did you reconcile home meds? @ -Yes Was smoking cessation discussed for >3mins.? @ -No Was critical care preformed (if so, how long)? @ -No Were there social determinants of health that impacted care today? How? (Homelessness, low income, unemployed, alcoholism, drug addiction, transportation, low edu. Level, literacy, decrease access to med. care, residential, rehab)? @ -No Was there de-escalation of care discussed even if they declined? (Discuss DNR or withdrawal of care, Hospice)? @ -No What co-morbidities impacted this encounter? (DM, HTN, Smoking, COPD, CAD, Cancer, CVA, Hep., AIDS, mental health diagnosis, sleep apnea, morbid obesity)? @ -None Was patient admitted / discharged? @ -Discharged. Lab work obtained and found to be nonactionable. Covid, influenza, and RSV testing were negative. Patient was observed to be experiencing episodes of hemoptysis in the emergency department. Chest x-ray revealed a right lower lobe area of infiltrate, however underlying mass could not be excluded. D-dimer and troponin were negative. However, in light of her persistent symptoms with new onset hemoptysis, CT angiogram of the chest was obtained. No evidence of a pulmonary embolus was identified, however she was found to have conglomerate soft tissue around the right pulmonary hilum, pulmonary congestion in the right lower lobe, and it was suggested that findings could represent sequela of recent infection, however underlying mass could not be excluded. Radiology advised further evaluation with possible bronchoscopy. Patient is unable to see pulmonology on an outpatient basis until 02/19. In light of her worsening symptoms and concerning computed tomography scan findings, patient admitted to medicine for further management. Pulmonology listed as consult. Undiagnosed new problem with uncertain prognosis? @ -None Drug Therapy requiring intensive monitoring for toxicity (Heparin, Nitro, Insulin, Cardizem)? @ -None Were any procedures done? @ -None Diagnosis/symptom? @ -Hemoptysis, abnormal chest CT, pulmonary vascular congestion Acute, or Chronic, or Acute on Chronic? @ -Acute Uncomplicated (without systemic symptoms) or Complicated (systemic symptoms)? @ -Uncomplicated Side effects of treatment? @ -None Exacerbation, Progression, or Severe Exacerbation] @ -Not applicable Poses a threat to life or bodily function? @ -Yes This case was discussed in detail with the attending ED physician, Dr. Whipple. Presentation, findings, and treatment plan discussed in detail as well. - Lab Data Result diagrams: 01/23/23 14:12 01/23/23 14:12 Lab Results 01/23/23 01/23/23 01/23/23 Range/Units 13:30 14:12 14:12 WBC 8.8 (3.8-10.6) k/uL RBC 4.79 (3.80-5.40) m/uL Hgb 10.9 L (11.4-16.0) gm/dL Hct 35.7 (34.0-46.0) % MCV 74.4 L (80.0-100.0) fL MCH 22.7 L (25.0-35.0) pg MCHC 30.5 L (31.0-37.0) g/dL RDW 16.8 H (11.5-15.5) % Plt Count 435 (150-450) k/uL MPV 7.4 Neutrophils % 69 % Lymphocytes % 20 % Monocytes % 5 % Eosinophils % 4 % Basophils % 0 % Neutrophils # 6.1 (1.3-7.7) k/uL Lymphocytes # 1.7 (1.0-4.8) k/uL Monocytes # 0.5 (0-1.0) k/uL Eosinophils # 0.4 (0-0.7) k/uL Basophils # 0.0 (0-0.2) k/uL Hypochromasia Marked Anisocytosis Slight Microcytosis Slight PT 10.5 (9.0-12.0) sec INR 1.0 (<1.2) APTT 25.9 (22.0-30.0) sec D-Dimer 0.37 (<0.60) mg/L FEU Sodium (137-145) mmol/L Potassium (3.5-5.1) mmol/L Chloride (98-107) mmol/L Carbon Dioxide (22-30) mmol/L Anion Gap mmol/L BUN (7-17) mg/dL Creatinine (0.52-1.04) mg/dL Est GFR (CKD-EPI)AfAm (>60 ml/min/1.73 sqM) Est GFR (CKD-EPI)NonAf (>60 ml/min/1.73 sqM) Glucose (74-99) mg/dL Plasma Lactic Acid Marlon (0.7-2.0) mmol/L Calcium (8.4-10.2) mg/dL Total Bilirubin (0.2-1.3) mg/dL AST (14-36) U/L ALT (4-34) U/L Alkaline Phosphatase (38-126) U/L Troponin I (0.000-0.034) ng/mL Total Protein (6.3-8.2) g/dL Albumin (3.5-5.0) g/dL HCG, Qual Influenza Type A (PCR) Not Detected (Not Detectd) Influenza Type B (PCR) Not Detected (Not Detectd) RSV (PCR) Not Detected (Not Detectd) SARS-CoV-2 (PCR) Not Detected (Not Detectd) 01/23/23 01/23/23 01/23/23 Range/Units 14:12 14:12 14:12 WBC (3.8-10.6) k/uL RBC (3.80-5.40) m/uL Hgb (11.4-16.0) gm/dL Hct (34.0-46.0) % MCV (80.0-100.0) fL MCH (25.0-35.0) pg MCHC (31.0-37.0) g/dL RDW (11.5-15.5) % Plt Count (150-450) k/uL MPV Neutrophils % % Lymphocytes % % Monocytes % % Eosinophils % % Basophils % % Neutrophils # (1.3-7.7) k/uL Lymphocytes # (1.0-4.8) k/uL Monocytes # (0-1.0) k/uL Eosinophils # (0-0.7) k/uL Basophils # (0-0.2) k/uL Hypochromasia Anisocytosis Microcytosis PT (9.0-12.0) sec INR (<1.2) APTT (22.0-30.0) sec D-Dimer (<0.60) mg/L FEU Sodium 139 (137-145) mmol/L Potassium 4.0 (3.5-5.1) mmol/L Chloride 106 (98-107) mmol/L Carbon Dioxide 24 (22-30) mmol/L Anion Gap 9 mmol/L BUN 7 (7-17) mg/dL Creatinine 0.64 (0.52-1.04) mg/dL Est GFR (CKD-EPI)AfAm >90 (>60 ml/min/1.73 sqM) Est GFR (CKD-EPI)NonAf >90 (>60 ml/min/1.73 sqM) Glucose 126 H (74-99) mg/dL Plasma Lactic Acid Marlon 1.5 (0.7-2.0) mmol/L Calcium 9.3 (8.4-10.2) mg/dL Total Bilirubin 0.5 (0.2-1.3) mg/dL AST 31 (14-36) U/L ALT 25 (4-34) U/L Alkaline Phosphatase 84 (38-126) U/L Troponin I <0.012 (0.000-0.034) ng/mL Total Protein 7.5 (6.3-8.2) g/dL Albumin 4.2 (3.5-5.0) g/dL HCG, Qual Not Detected Influenza Type A (PCR) (Not Detectd) Influenza Type B (PCR) (Not Detectd) RSV (PCR) (Not Detectd) SARS-CoV-2 (PCR) (Not Detectd) - Radiology Data Radiology results: report reviewed, image reviewed Disposition Clinical Impression: Hemoptysis, Abnormal CT scan, chest, Pulmonary vascular congestion Disposition: ADMITTED IP TO THIS HOSP
--- NOTE | 2023-01-23 14:05 | XR ---
EXAMINATION TYPE: XR chest 2V DATE OF EXAM: 01/23/2023 COMPARISON: 01/05/2023 TECHNIQUE: PA and lateral views submitted. HISTORY: Cough FINDINGS: Elevated right hemidiaphragm with right lower lobe infiltrate and small effusion. Left lung clear. He art enlarged. No overt failure or pneumothorax. AC joint arthropathy on the right. IMPRESSION: 1. Right lower lobe area of infiltrate correlate clinically. Underlying mass not excluded.
[2023-01-23 14:31] LABS: Anisocytosis Slight; Basophils % (A) 0 %; Eosinophils # (A) 0.4 k/uL (0-0.7); Eosinophils % (A) 4 %; HCT 35.7 % (34.0-46.0); HGB 10.9 gm/dL (11.4-16.0); Hypochromasia Marked; Lymphocytes # (A) 1.7 k/uL (1.0-4.8); Lymphocytes % (A) 20 %; MCH 22.7 pg (25.0-35.0); MCHC 30.5 g/dL (31.0-37.0); MCV 74.4 fL (80.0-100.0); Mean Platelet Volume 7.4; Microcytosis Slight; Monocytes # (A) 0.5 k/uL (0-1.0); Monocytes % (A) 5 %; Neutrophils # (A) 6.1 k/uL (1.3-7.7); Neutrophils % (A) 69 %; Platelet Count 435 k/uL (150-450); RBC 4.79 m/uL (3.80-5.40); RDW 16.8 % (11.5-15.5); WBC 8.8 k/uL (3.8-10.6)
[2023-01-23 14:48] LABS: Partial Thromboplastin Time 25.9 sec (22.0-30.0); Prothrombin Time 10.5 sec (9.0-12.0)
[2023-01-23 15:01] LABS: ALT 25 U/L (4-34); AST 31 U/L (14-36); African American GFR (CKD) >90 (>60 ml/min/1.73 sqM); Albumin 4.2 g/dL (3.5-5.0); Alkaline Phosphatase 84 U/L (38-126); Anion Gap 9 mmol/L; Blood Urea Nitrogen 7 mg/dL (7-17); Calcium 9.3 mg/dL (8.4-10.2); Carbon Dioxide 24 mmol/L (22-30); Chloride 106 mmol/L (98-107); Glucose 126 mg/dL (74-99); Non-African American GFR(CKD) >90 (>60 ml/min/1.73 sqM); Sodium 139 mmol/L (137-145); Total Bilirubin 0.5 mg/dL (0.2-1.3); Total Protein 7.5 g/dL (6.3-8.2)
[2023-01-23 15:53] LABS: HCG,Qualitative Serum Not Detected
--- NOTE | 2023-01-23 16:22 | CT ---
EXAMINATION TYPE: CT chest angio for PE CT DLP: 860.1 mGycm, Automated exposure control for dose reduction was used. DATE OF EXAM: 01/23/2023 4:05 PM COMPARISON: 01/16/2023 CT. Chest radiograph same day. CLINICAL INDICATION:Female, 32 years old with history of Hemoptysis, tachycardia, abnormal chest x-ra y; Hemoptysis, tachycardia TECHNIQUE/CONTRAST: CTA scan of the thorax is performed with IV Contrast, patient injected with 100 ml mL of Isovue 370, MIP images are created and reviewed these are created on a separate workstation.. FINDINGS: Pulmonary Artery: There is no evidence for a filling defect within the pulmonary vasculature to sugge st acute pulmonary embolism. The pulmonary artery is of normal size. Lungs/Pleura: Pulmonary vascular congestion within the right lung predominantly in the lower aspect w ith trace pleural effusion. Airway: Large airways are patent. Heart: Heart is within normal limits for size. Vasculature: No evidence of aortic aneurysm. Mediastinum: Conglomerate soft tissue around the pulmonary hilum right greater than left. There is ca lcification within this region. Findings could represent prior infection. Calcified granuloma in the left lower lobe superior segment. Musculoskeletal: Moderate degenerative disc disease changes are present throughout the thoracolumbar spine. Soft Tissues: Unremarkable. Lower neck: Heterogenous right thyroid gland. Upper Abdomen: Diffuse low-attenuation to the liver parenchyma.. IMPRESSION: 1. No evidence of pulmonary embolism. 2. Conglomerate soft tissue around the right pulmonary hilum and to lesser extent the left with calci fication. Finding could represent sequela of prior infection given the calcification patient's age. U nderlying mass not entirely excluded. Consider bronchoscopy with tissue sampling. 3. Right lower lobe pulmonary vascular congestion possibly secondary to #2. Further evaluation is rec ommended for the possibility of underlying mass. Trace right pleural effusion remains. 4. Hepatic steatosis.
[2023-01-23] MEDS ORDERED: NALOXONE 0.4 MG/ML 1 ML VIAL IV PRN (18:11)
[2023-01-23] MEDS ORDERED: ONDANSETRON 4 MG/2 ML VIAL IVP PRN (18:11)
[2023-01-23] MEDS ORDERED: HYDROcodone/APAP 5-325MG 1 EACH TAB PO PRN (18:11)
[2023-01-23] MEDS: PANTOPRAZOLE 40 MG TABLET PO SCH (20:31)
[2023-01-23] MEDS: SERTRALINE 50 MG TAB PO SCH (20:31)
--- NOTE | 2023-01-24 02:19 | P.HPIM ---
History of Present Illness H&P Date: 01/23/23 Chief Complaint: hemoptysis 32 year old female with history of GERD she is coming in for evaluation of one day history of hemoptysis . she has an appointment with pulmonary first week of February and did not want to wait that long over the past 1 month , she has been complaining of a cough, she was diagnosed with pneumonia early December at an Urgent care and finished a course of antibiotics , she believes it was a Z pack. a week later had another CXR , which was still showing cardiomegally however, did not show a pneumonia. However, due to persistence of her cough symptoms , she was given another course of antibiotics. she denies any associated fever, chills, runny nose, congestion , chest pain , or trouble breathing , denies any known sick contacts, recent travel or anyone sick like her at home. she denies any history of bleeding tendencies, or blood clots . denies tobacco smoking , illicit drugs or alcohol she denies any weight loss, or dysphagia, but does report night sweat. in the ED , ,d dimer was negative ,CTA of the chest showed no acute PE , however reported conglomerate soft tissue around the right pulmonary hilum and recommending Bronchoscopy with tissue sampling review of systems Pertinent positives as noted in HPI. All other systems were reviewed and are negative on exam Constitutional: No acute distress, conversant, pleasant Eyes: Anicteric sclerae, moist conjunctiva, Pupils equal round reactive to light ENMT: NC/AT Oropharynx clear, no erythema, or exudates Neck: Supple, no masses, or JVD No carotid bruits No thyromegaly Lungs: Clear to auscultation Clear to percussion Normal respiratory effort, no accessory muscle use Cardiovascular: Heart regular in rate and rhythm, No murmurs, gallops, or rubs No peripheral edema Abdominal: Soft Nontender, no guarding, rebound or rigidity Abdomen moving with respiration Normoactive bowel sounds No hepatomegaly, No splenomegaly No palpable mass No abdominal wall hernia noted Skin: Normal temperature, tone, texture, turgor No induration No subcutaneous nodules No rash, lesions No ulcers Extremities: No digital cyanosis No clubbing Pedal pulses intact and symmetrical Radial pulses intact and symmetrical No calf tenderness Psychiatric: Alert and oriented to person, place and time Appropriate affect fair judgement Neuro Muscles Strength 5/5 in all 4 extremities Sensation to light touch grossly present throughout Cranial nerves II-XII grossly intact Lymphatics: no palpable cervical or supraclavicular lymph nodes Past Medical History Past Medical History: GERD/Reflux Additional Past Medical History / Comment(s): low iron History of Any Multi-Drug Resistant Organisms: None Reported Past Surgical History: Section Additional Past Surgical History / Comment(s): cyst removed from hand Past Psychological History: Depression Smoking Status: Never smoker Past Alcohol Use History: None Reported Past Drug Use History: None Reported - Past Family History Mother Family Medical History: Diabetes Mellitus, GERD/Reflux Medications and Allergies Home Medications Medication Instructions Recorded Confirmed Type Omeprazole Magnesium [PriLOSEC OTC] 40 mg PO HS 01/23/23 01/23/23 History Sertraline [Zoloft] 150 mg PO HS 01/23/23 01/23/23 History Allergies Allergy/AdvReac Type Severity Reaction Status Date / Time amoxicillin Allergy Rash/Hives Verified 01/23/23 19:33 cefuroxime [From Ceftin] Allergy Rash/Hives Verified 01/23/23 19:33 ciprofloxacin [From Cipro] Allergy Rash/Hives Verified 01/23/23 19:33 clindamycin Allergy Rash/Hives Verified 01/23/23 19:33 Physical Exam Vitals: Vital Signs Temp Pulse Resp BP Pulse Ox 01/23/23 23:07 93 18 147/87 96 01/23/23 18:26 98.6 F 101 H 18 144/98 97 01/23/23 13:23 97.3 F L 118 H 20 144/94 97 Intake and Output 01/23/23 01/23/23 01/24/23 14:59 22:59 06:59 Other: Weight 129.274 kg Results CBC & Chem 7: 01/23/23 14:12 01/23/23 14:12 Labs: Abnormal Lab Results - Last 24 Hours (Table) 01/23/23 01/23/23 01/23/23 Range/Units 14:12 14:12 20:40 Hgb 10.9 L (11.4-16.0) gm/dL MCV 74.4 L (80.0-100.0) fL MCH 22.7 L (25.0-35.0) pg MCHC 30.5 L (31.0-37.0) g/dL RDW 16.8 H (11.5-15.5) % Glucose 126 H (74-99) mg/dL C-Reactive Protein 2.6 H (<1.0) mg/dL Assessment and Plan Assessment: 32 year old female with GERD, and 1 month history of cough finished 2 courses of antibiotics, today coming in with 1 day history of hemoptysis , I discussed the case with ED doc and I accepted the admission for pulmonary evaluation and possible bronchoscopy , with anticipated length of stay < 2 midnights hemoptysis d dimer negative s/p 2 courses of antibiotics outpatient CTA showed suspicious area around the right pulmonary hilum with possible mass, recommending bronchoscopy for tissue sampling supportive care pulmonary consult supplemental oxygen as needed monitor vital signs acute respiratory viral panel negative gentle IVF hydration chronic microcytic anemia denies any GI bleeding does report history of blood tranfusion 2019 and iron infusion 2020 Hgb 10.9 MCV 74.4 GERD continue with PPI full code DVT PPX mechanical blood work renal function unremarkable BUN 7cr 0.64 Na 139 K 4
--- NOTE | 2023-01-24 02:26 | P.CNPUL ---
History of Present Illness Consult date: 01/24/23 Requesting physician: Lyn Mora Reason for consult: pneumonia, other (Hemoptysis) Chief complaint: Hemoptysis History of present illness: I am seeing this patient in new consultation today 01/24/2023 for hemoptysis that started two days ago and abnormal chest CT findings. Patient is a 32-year- old white female who was recently treated for pneumonia back in October, by an urgent care center. Her PCP Dr. Quezada out of [place]. She states that she initially improved, but then worsened again in December. She's had multiple rounds of antibiotics, and just recently finished a course of azithromycin. Patient presented to emergency room yesterday afternoon reporting hemoptysis that started the day prior. She showed me several pictures on her phone, and there was yoselin hemoptysis with clots. She states that she is occasionally short of breath on exertion, and has frequent coughing episodes. Denies previous episodes of hemoptysis. Denies any chest pain, fevers. She has never smoked. Denies taking anticoagulants. No recent travel or sick contacts. A chest CTA on arrival showed no evidence of pulmonary embolism. It did show conglomerate soft tissue surrounding the right pulmonary hilum, and to a lesser extent the left with calcification. This could represent a sequelae of prior infection. Underlying mass was not excluded. There was right lower lobe pulmonary vascular congestion likely related to above. There is not much change from her chest CT seven days ago. Given the patient's age, and the fact that she's never has never been a smoker, malignancy is felt to be less likely. Denies weight loss. Patient is currently sitting up in bed, on room air, in no acute distress. There are small amounts of hemoptysis in the emesis basin next to her bed. CBC on arrival showed some mild microcytic hypochromic anemia. Hemoglobin 10.9, hematocrit 35.7, platelets 135, WBC count 8.8. She states that she takes iron supplements. BMP on arrival is unremarkable. Negative for influenza, RSV, COVID-19. Coagulation profile was within normal limits. Patient has stable at this time, and is being admitted to the observation unit. Review of Systems REVIEW OF SYSTEMS: CONSTITUTIONAL: Denies any recent significant weight loss or weight gain, fever EYES: Denies change in vision. EARS, NOSE, MOUTH, THROAT: Denies headaches, denies sore throat. CARDIOVASCULAR: Denies chest pain, palpitations or syncopal episodes. RESPIRATORY: See HPI GASTROINTESTINAL: Denies change in appetite, abdominal pain, nausea and vomiting, or diarrhea GENITOURINARY: Denies hematuria, denies infections. MUSKULOSKELETAL: Denies pain, denies swelling. INTEGUMENTARY: Denies rash, denies eczema. NEUROLOGICAL: Denies recent memory loss, no recent seizure activity. PSYCHIATRIC: Denies anxiety, denies depression. HEMATOLOGIC/LYMPHATIC: Denies anemia, denies enlarged lymph node Past Medical History Past Medical History: GERD/Reflux Additional Past Medical History / Comment(s): low iron History of Any Multi-Drug Resistant Organisms: None Reported Past Surgical History: Section Additional Past Surgical History / Comment(s): cyst removed from hand Past Psychological History: Depression Smoking Status: Never smoker Past Alcohol Use History: None Reported Past Drug Use History: None Reported - Past Family History Mother Family Medical History: Diabetes Mellitus, GERD/Reflux Medications and Allergies Home Medications Medication Instructions Recorded Confirmed Type Omeprazole Magnesium [PriLOSEC OTC] 40 mg PO HS 01/23/23 01/23/23 History Sertraline [Zoloft] 150 mg PO HS 01/23/23 01/23/23 History Allergies Allergy/AdvReac Type Severity Reaction Status Date / Time amoxicillin Allergy Rash/Hives Verified 01/23/23 19:33 cefuroxime [From Ceftin] Allergy Rash/Hives Verified 01/23/23 19:33 ciprofloxacin [From Cipro] Allergy Rash/Hives Verified 01/23/23 19:33 clindamycin Allergy Rash/Hives Verified 01/23/23 19:33 Physical Exam Vitals: Vital Signs Temp Pulse Resp BP Pulse Ox 01/23/23 23:07 93 18 147/87 96 01/23/23 18:26 98.6 F 101 H 18 144/98 97 01/23/23 13:23 97.3 F L 118 H 20 144/94 97 Intake and Output 01/23/23 01/23/23 01/24/23 14:59 22:59 06:59 Other: Weight 129.274 kg GENERAL EXAM: Alert, , comfortable in no apparent distress. HEAD: Normocephalic and atraumatic EYES: Normal reaction of pupils, equal size. NOSE: Clear with pink turbinates. No epistaxis THROAT: No erythema or exudates. NECK: No lymphadenopathy, masses, JVD CHEST: No chest wall deformity. LUNGS: Equal air entry with right-sided inspiratory crackles. No wheezing, rhonchi, focal dullness. On room air. No conversational dyspnea or accessory muscle use.. CVS: S1 and S2 normal with no audible murmur, regular rhythm. No extra heart sounds ABDOMEN: No hepatosplenomegaly, active bowel sounds, no guarding or rigidity. SPINE: No scoliosis or deformity SKIN: No rashes CENTRAL NERVOUS SYSTEM: No focal deficits, tone is normal in all 4 extremities. EXTREMITIES: There is no peripheral edema, clubbing, or cyanosis. Peripheral pulses are intact. Results - Laboratory Findings CBC and BMP: 01/23/23 14:12 01/23/23 14:12 PT/INR, D-dimer PT 10.5 sec (9.0-12.0) 01/23/23 14:12 INR 1.0 (<1.2) 01/23/23 14:12 D-Dimer 0.37 mg/L FEU (<0.60) 01/23/23 14:12 Abnormal lab findings: Abnormal Labs 01/23/23 01/23/23 01/23/23 14:12 14:12 20:40 Hgb 10.9 L MCV 74.4 L MCH 22.7 L MCHC 30.5 L RDW 16.8 H Glucose 126 H C-Reactive Protein 2.6 H - Diagnostic Findings Chest x-ray: image reviewed CT scan - chest: image reviewed Assessment and Plan Assessment: Mild hemoptysis, likely secondary to sequelae of pneumonia. A chest CTA on arrival showed no evidence of pulmonary embolism. It did show conglomerate soft tissue surrounding the right pulmonary hilum, and to a lesser extent the left, with calcification. This could represent a sequelae of prior infection. Underlying mass was not excluded. There was right lower lobe pulmonary vascular congestion likely related to above. There is not much change from her chest CT seven days ago. Given the patient's age, and the fact that she's never has never been a smoker, malignancy is felt to be less likely. Mild microcytic, hypochromic anemia Morbid obesity, with a BMI of 43 kg/m Never smoker Plan: Patient's medications, labs, imaging were reviewed If the hemoptysis continues, patient may need bronchoscopy, to identify source of bleeding. Bleeding is estimated to be less than 50 ml/24hr. Regardless, the patient will need follow-up. I will discuss this with Dr. Mckinnon. Currently, she is on room air and in no respiratory distress Will start the patient on empiric antibiotics. She is allergic to multiple different antibiotic classes. Reports rash. Watch for allergic reaction. We will continue to follow, and further recommendations are forthcoming I have personally seen and examined the patient, performed the documentation and the assessment and plan as written. Number of minutes spent on the visit:20 Time with Patient: Greater than 30
[2023-01-24] MEDS ORDERED: LEVOFLOXACIN 750MG-D5W PMX 750 MG in DEXTROSE/WATER 1 150ML.BAG IVPB STA (02:35)
[2023-01-24] MEDS: SODIUM CHLORIDE 0.9% 1,000 ML IV SCH ×2 (03:41→19:47)
--- NOTE | 2023-01-24 13:37 | P.PN ---
Subjective Progress Note Date: 01/24/23 Patient is a 32-year-old female with GERD, iron deficiency, and depression who presented with complaints of hemoptysis and a cough of several months duration. In the ER she underwent an extensive evaluation. Initial vital signs showed tachycardia at a rate of 118. Laboratory analysis was remarkable for hemoglobin 10.9, glucose 126, CRP 2.6. Viral panel testing was negative for influenza a/B/RSV/COVID-19. CTA of the chest showed no pulmonary embolism but did show conglomerate soft tissue on the right pulmonary hilum. Patient was placed on observation for hemoptysis. She was seen by pulmonary. Plan is for bronchoscopy on 01/25/23. Patient seen and examined at bedside. No additional hemoptysis since last night. Still having intermittent shortness of breath. Complains that she has some difficulty sleeping but is now very tired and has been sleeping all morning. No other complaints currently. Vital signs reviewed General: nontoxic, no distress, appears at stated age Cardiovascular: S1S2 reg, no murmur, positive posterior tibial pulse bilateral, Lungs: CTA bilateral, no rhonchi, no rales , no accessory muscle use Abdominal: soft, nontender to palpation, no guarding, no appreciable organomegaly Ext: no gross muscle atrophy, no edema b/l lower extremities, no contractures Neuro: CN II-XI grossly intact, no focal neuro deficits Psych: Alert, oriented, appropriate affect Assessment/Plan: Hemoptysis with pulmonary hilum irregularity Chronic cough Microcytic anemia Class III obesity with BMI 43.3 GERD Depression -Pulmonary recommendations appreciated: Case discussed with Dr. Patel and plan is for bronchoscopy tomorrow -Continue with Levaquin 750 mg IV piggyback daily -Protonix 40 mg daily - Zoloft 150 mg daily -Outpatient structured weight loss Imaging: None new Data Review: None new VItals reviewed DVT prophylaxis: SCDs Anticipated discharge date: in 24-[address]: home This dictation was prepared using [employer] voice recognition software. Though every attempt is made to correct errors during dictation some may still exist. Objective - Vital Signs Vital signs: Vital Signs Temp 97.8 F 01/24/23 12:40 Pulse 89 01/24/23 12:40 Resp 18 01/24/23 12:40 BP 135/85 01/24/23 12:40 Pulse Ox 97 01/24/23 12:40 FiO2 Intake & Output 01/23/23 01/24/23 01/24/23 18:59 06:59 18:59 Weight 129.274 kg - Labs CBC & Chem 7: 01/23/23 14:12 01/23/23 14:12 Labs: Abnormal Lab Results - Last 24 Hours (Table) 01/23/23 01/23/23 01/23/23 Range/Units 14:12 14:12 20:40 Hgb 10.9 L (11.4-16.0) gm/dL MCV 74.4 L (80.0-100.0) fL MCH 22.7 L (25.0-35.0) pg MCHC 30.5 L (31.0-37.0) g/dL RDW 16.8 H (11.5-15.5) % Glucose 126 H (74-99) mg/dL C-Reactive Protein 2.6 H (<1.0) mg/dL
[2023-01-24] MEDS: PANTOPRAZOLE 40 MG TABLET PO SCH (20:49)
[2023-01-24] MEDS: SERTRALINE 50 MG TAB PO SCH (20:49)
[2023-01-24] MEDS: ACETAMINOPHEN TAB 325 MG TAB PO PRN (20:49)
[2023-01-25] MEDS: LEVOFLOXACIN 750MG-D5W PMX 750 MG in DEXTROSE/WATER 1 150ML.BAG IVPB SCH (04:11)
[2023-01-25] MEDS: SODIUM CHLORIDE 0.9% 1,000 ML IV SCH ×2 (04:37→18:36)
[2023-01-25] MEDS ORDERED: PROPOFOL 10 MG/ML 20 ML VIAL IV ONE (10:50)
[2023-01-25] MEDS ORDERED: LIDOCAINE 2% INJ 20 MG/ML INTRATRACH ONE (11:09)
[2023-01-25] MEDS ORDERED: IV FLUID CONTINUATION 1,000 ML IV ONE (11:18)
--- NOTE | 2023-01-25 11:29 | P.PN ---
Subjective Progress Note Date: 01/25/23 I am seeing this patient in new consultation today 01/24/2023 for hemoptysis that started two days ago and abnormal chest CT findings. Patient is a 32-year-old white female who was recently treated for pneumonia back in October, by an urgent care center. Her PCP Dr. Quezada out of [place]. She st ates that she initially improved, but then worsened again in December. She's had multiple rounds of antibiotics, and just recently finished a course of azithromycin. Patient presented to emergency room yesterday afternoon reporting hemoptysis that started the day prior. She showed me several pictures on her phone, and there was yoselin hemoptysis with clots. She states that she is occasionally short of breath on exertion, and has frequent coughing episodes. Denies previous episodes of hemoptysis. Denies any chest pain, fevers. She has never smoked. Denies taking anticoagulants. No recent travel or sick contacts. A chest CTA on arrival showed no evidence of pulmonary embolism. It did show conglomerate soft tissue surrounding the right pulmonary hilum, and to a lesser extent the left with calcification. This could represent a sequelae of prior infection. Underlying mass was not excluded. There was right lower lobe pulmonary vascular congestion likely related to above. There is not much change from her chest CT seven days ago. Given the patient's age, and the fact that she's never has never been a smoker, malignancy is felt to be less likely. Denies weight loss. Patient is currently sitting up in bed, on room air, in no acute distress. There are small amounts of hemoptysis in the emesis basin next to her bed. CBC on arrival showed some mild microcytic hypochromic anemia. Hemoglobin 10.9, hematocrit 35.7, platelets 135, WBC count 8.8. She states that she takes iron supplements. BMP on arrival is unremarkable. Negative for influenza, RSV, COVID-19. Coagulation profile was within normal limits. Patient has stable at this time, and is being admitted to the observation unit. The patient is seen today 01/25/2023 in follow-up in the regular medical floor. She is currently resting in bed. Awake and alert in no acute distress. Denies any significant hemoptysis this morning. Maintaining good O2 saturations in the mid 90s on room air. Afebrile. Hemodynamically stable. ProCalcitonin was 0.03. She is currently on Levaquin. Objective - Vital Signs Vital signs: Vital Signs Temp 97.6 F 01/25/23 07:00 Pulse 80 01/25/23 07:00 Resp 14 01/25/23 07:00 BP 118/73 01/25/23 07:00 Pulse Ox 97 01/25/23 07:00 FiO2 Intake & Output 01/24/23 01/25/23 01/25/23 18:59 06:59 18:59 Intake Total 268 200 Balance 268 200 Intake: IV 200 Intake, IV Titration 150 Amount Sodium Chloride 0.9% 1, 150 000 ml @ 75 mls/hr IV . [id number] AILIN Rx#:[id number] Oral 118 Other: Voiding Method Toilet # Voids 2 - Exam GENERAL EXAM: Alert, pleasant, obese 32-year-old female, on room air, comfortable in no apparent distress. HEAD: Normocephalic. EYES: Normal reaction of pupils, equal size. NOSE: Clear with pink turbinates. THROAT: No erythema or exudates. NECK: No masses, no JVD. CHEST: No chest wall deformity. LUNGS: Equal air entry with no crackles, wheeze, rhonchi or dullness. CVS: S1 and S2 normal with no audible murmur, regular rhythm. ABDOMEN: No hepatosplenomegaly, normal bowel sounds, no guarding or rigidity. SPINE: No scoliosis or deformity SKIN: No rashes CENTRAL NERVOUS SYSTEM: No focal deficits, tone is normal in all 4 extremities. EXTREMITIES: There is no peripheral edema. No clubbing, no cyanosis. Peripheral pulses are intact. - Labs CBC & Chem 7: 01/23/23 14:12 01/23/23 14:12 Assessment and Plan Assessment: Mild hemoptysis, likely secondary to sequelae of pneumonia. A chest CTA on arrival showed no evidence of pulmonary embolism. It did show conglomerate soft tissue surrounding the right pulmonary hilum, and to a lesser extent the left, with calcification. This could represent a sequelae of prior infection. Underlying mass was not excluded. There was right lower lobe pulmonary vascular congestion likely related to above. There is not much change from her chest CT seven days ago. Given the patient's age, and the fact that she's never has neve r been a smoker, malignancy is felt to be less likely. Plan is for bronchoscopy with BAL today 01/25/2023 Mild microcytic, hypochromic anemia Morbid obesity, with a BMI of 43 kg/m Never smoker Plan: The patient was seen and evaluated Stable and on room air Procalcitonin negative Discontinue Levaquin Plan is for bronchoscopy with BAL We will continue to follow I have personally seen and examined the patient, performed the documentation and the assessment and plan as written. Number of minutes spent on the visit: 10.
--- NOTE | 2023-01-25 12:04 | PCN ---
PROCEDURE NOTE PROCEDURE PERFORMED: Bronchoscopy, airway examination, therapeutic lavage. PREOPERATIVE DIAGNOSIS: Hemoptysis. POSTOPERATIVE DIAGNOSIS: Hemoptysis. ANESTHESIA: Provided general anesthesia. OPERATORS: Dr. Mckinnon and Dr. Stallworth. DESCRIPTION OF PROCEDURE: There was informed consent and universal timeout. After the patient was adequately sedated and being fully monitored, the bronchoscope was inserted through the right nostril. It passed through the right nasopharynx into the oropharynx. The hypopharynx was identified. There were some secretions noted in the right piriform sinus. The structures of the hypopharynx appeared relatively normal including anterior commissure, true cords, false cords, arytenoids, piriform sinuses, right and left, vallecula, and epiglottis. After topicalization, the bronchoscope was pushed through the glottic opening into the trachea. There was blood noted in the trachea, and there was some blood noted in the right and left mainstem bronchi. The right and left mainstem bronchi were topicalized with lidocaine. The tracheal rasta was sharp. There was significant mucosal friability throughout. This was mostly right-sided versus left- sided. The patient bled very easily. We could not really get good visualization of the airways, because of the bleeding. We tried some cold saline, without benefit. Because the patient was bucking around a lot and could not be adequately sedated, the procedure was aborted, without sampling. The patient will be reboarded, to be done with general anesthesia and endotracheal tube tomorrow. No additional recommendations are made. No samples were sent to the laboratory. The patient tolerated the procedure well without complication. Again, there was not sampling of the material today. Additional recommendations and suggestions are forthcoming. She will be rescheduled tomorrow with general anesthesia. MMODL / IJN: [id number] /
[2023-01-25] MEDS: ACETAMINOPHEN TAB 325 MG TAB PO PRN (13:49)
--- NOTE | 2023-01-25 16:04 | P.PN ---
Subjective Progress Note Date: 01/25/23 (delayed charting seen at 0845) Patient is a 32-year-old female with GERD, iron deficiency, and depression who presented with complaints of hemoptysis and a cough of several months duration. In the ER she underwent an extensive evaluation. Initial vital signs showed tachycardia at a rate of 118. Laboratory analysis was remarkable for hemoglobin 10.9, glucose 126, CRP 2.6. Viral panel testing was negative for influenza a/B/RSV/COVID-19. CTA of the chest showed no pulmonary embolism but did show conglomerate soft tissue on the right pulmonary hilum. Patient was placed on observation for hemoptysis. She was seen by pulmonary. Toan dangelo on 01/25 and could not get adaquate sedation with conscious sedation. Patient seen and examined at bedside. She has no additional complaints today. She has not had any more hemoptysis but she continues to have a cough. Vital signs reviewed General: nontoxic, no distress, appears at stated age Cardiovascular: S1S2 reg, no murmur, positive posterior tibial pulse bilateral, Lungs: CTA bilateral, no rhonchi, no rales , no accessory muscle use Abdominal: soft, nontender to palpation, no guarding, no appreciable organomegaly Ext: no gross muscle atrophy, no edema b/l lower extremities, no contractures Neuro: CN II-XI grossly intact, no focal neuro deficits Psych: Alert, oriented, appropriate affect Assessment/Plan: Hemoptysis with pulmonary hilum irregularity Chronic cough Microcytic anemia Class III obesity with BMI 43.3 GERD Depression -Pulmonary note reviewed. Patient could not be adequately controlled with conscious sedation and significant bleeding was noted within the airways. Patinet to undergo bronchoscopy and will require general anesthesia and intubation for appropriate bronchoscopy tomorrow. C- ANCA and P-ANCA. -Check CBC and BMP in AM. -Continue with Levaquin 750 mg IV piggyback daily -Protonix 40 mg daily - Zoloft 150 mg daily -Outpatient structured weight loss Imaging: None new Data Review: Vitals were reviewed and within normal. Blood cultures negative to date. No additional blood work to review. Patient continues to have significant bleeding in her airways per the limited bronchoscopy performed today. She will need to be monitored closely for signs of developing hypoxemia or asphyxiation. Plan is for bronch with general anesthesia ht in AM. As patient is not safe for discharge home will transition to inpatient status DVT prophylaxis: SCDs Anticipated discharge date: in AM Anticipated discharge place: home This dictation was prepared using [employer] voice recognition software. Though every attempt is made to correct errors during dictation some may still exist. Objective - Vital Signs Vital signs: Vital Signs Temp 98.2 F 01/25/23 12:08 Pulse 82 01/25/23 13:08 Resp 14 01/25/23 12:08 BP 131/87 01/25/23 13:08 Pulse Ox 97 01/25/23 13:08 FiO2 Intake & Output 01/24/23 01/25/23 01/25/23 18:59 06:59 18:59 Intake Total 268 800 Balance 268 800 Intake: IV 200 Intake, IV Titration 150 600 Amount Sodium Chloride 0.9% 1, 150 600 000 ml @ 75 mls/hr IV . [id number] [facility] Rx#:[id number] Oral 118 Other: Voiding Method Toilet # Voids 2 - Labs CBC & Chem 7: 01/23/23 14:12 01/23/23 14:12 Labs: Microbiology - Last 24 Hours (Table) 01/24/23 03:15 Blood Culture - Preliminary Blood 01/24/23 03:00 Blood Culture - Preliminary Blood
[2023-01-25] MEDS: PANTOPRAZOLE 40 MG TABLET PO SCH (20:06)
[2023-01-25] MEDS: SERTRALINE 50 MG TAB PO SCH (20:06)
[2023-01-26] MEDS: LEVOFLOXACIN 750MG-D5W PMX 750 MG in DEXTROSE/WATER 1 150ML.BAG IVPB SCH (02:02)
[2023-01-26 05:52] LABS: Anisocytosis Slight; HCT 35.7 % (34.0-46.0); HGB 10.8 gm/dL (11.4-16.0); Hypochromasia Marked; MCHC 30.4 g/dL (31.0-37.0); MCV 75.8 fL (80.0-100.0); Mean Platelet Volume 7.6; Microcytosis Slight; Platelet Count 334 k/uL (150-450); RBC 4.71 m/uL (3.80-5.40); RDW 16.9 % (11.5-15.5); WBC 6.9 k/uL (3.8-10.6)
[2023-01-26 06:05] LABS: African American GFR (CKD) >90 (>60 ml/min/1.73 sqM); Anion Gap 6 mmol/L; Blood Urea Nitrogen 9 mg/dL (7-17); Calcium 9.1 mg/dL (8.4-10.2); Carbon Dioxide 26 mmol/L (22-30); Chloride 105 mmol/L (98-107); Glucose 96 mg/dL (74-99); Non-African American GFR(CKD) >90 (>60 ml/min/1.73 sqM); Potassium 4.7 mmol/L (3.5-5.1); Sodium 137 mmol/L (137-145)
[2023-01-26] MEDS ORDERED: predniSONE 20 MG TAB PO SCH (09:00)
[2023-01-26] MEDS: SODIUM CHLORIDE 0.9% 1,000 ML IV SCH ×2 (10:48→15:37)
--- NOTE | 2023-01-26 11:41 | P.PN ---
Subjective Progress Note Date: 01/26/23 I am seeing this patient in new consultation today 01/24/2023 for hemoptysis that started two days ago and abnormal chest CT findings. Patient is a 32-year-old white female who was recently treated for pneumonia back in October, by an urgent care center. Her PCP Dr. Quezada out of [place]. She st ates that she initially improved, but then worsened again in December. She's had multiple rounds of antibiotics, and just recently finished a course of azithromycin. Patient presented to emergency room yesterday afternoon reporting hemoptysis that started the day prior. She showed me several pictures on her phone, and there was yoselin hemoptysis with clots. She states that she is occasionally short of breath on exertion, and has frequent coughing episodes. Denies previous episodes of hemoptysis. Denies any chest pain, fevers. She has never smoked. Denies taking anticoagulants. No recent travel or sick contacts. A chest CTA on arrival showed no evidence of pulmonary embolism. It did show conglomerate soft tissue surrounding the right pulmonary hilum, and to a lesser extent the left with calcification. This could represent a sequelae of prior infection. Underlying mass was not excluded. There was right lower lobe pulmonary vascular congestion likely related to above. There is not much change from her chest CT seven days ago. Given the patient's age, and the fact that she's never has never been a smoker, malignancy is felt to be less likely. Denies weight loss. Patient is currently sitting up in bed, on room air, in no acute distress. There are small amounts of hemoptysis in the emesis basin next to her bed. CBC on arrival showed some mild microcytic hypochromic anemia. Hemoglobin 10.9, hematocrit 35.7, platelets 135, WBC count 8.8. She states that she takes iron supplements. BMP on arrival is unremarkable. Negative for influenza, RSV, COVID-19. Coagulation profile was within normal limits. Patient has stable at this time, and is being admitted to the observation unit. The patient is seen today 01/25/2023 in follow-up in the regular medical floor. She is currently resting in bed. Awake and alert in no acute distress. Denies any significant hemoptysis this morning. Maintaining good O2 saturations in the mid 90s on room air. Afebrile. Hemodynamically stable. ProCalcitonin was 0.03. She is currently on Levaquin. The patient is seen today 01/26/2023 in follow-up on the regular medical floor. She is awake and alert in no acute distress. Sitting up in bed. She is doing well. Maintaining good O2 saturation the upper 90s on room air. She remains on Levaquin. Normal saline 75 ML's per hour. Initiated on prednisone. She's afebrile. White count 6.9. Hemoglobin 10.8. Platelets 334. Sodium 137. Potassium 4.7. Bicarb 26. BUN 9. Creatinine 0.68. Glucose 96. She did undergo bronchoscopy yesterday however she was very restless despite sedation and had very friable airways with bleeding and difficulty visualizing her airways. The procedure was aborted. The plan is to redo a bronchoscopy today while intubated for better control of the situation. P-ANCA and c-ANCA pending. Objective - Vital Signs Vital signs: Vital Signs Temp 98 F 01/26/23 07:00 Pulse 84 01/26/23 07:00 Resp 14 01/26/23 07:00 BP 149/89 01/26/23 07:00 Pulse Ox 98 01/26/23 07:00 FiO2 Intake & Output 01/25/23 01/26/23 01/26/23 18:59 06:59 18:59 Intake Total 800 Balance 800 Intake: IV 200 Intake, IV Titration 600 Amount Sodium Chloride 0.9% 1, 600 000 ml @ 75 mls/hr IV . [id number] [facility] Rx#:[id number] Other: Voiding Method Toilet # Voids 2 - Exam GENERAL EXAM: Alert, obese 32-year-old female, on room air, comfortable in no apparent distress. HEAD: Normocephalic. EYES: Normal reaction of pupils, equal size. NOSE: Clear with pink turbinates. THROAT: No erythema or exudates. NECK: No masses, no JVD. CHEST: No chest wall deformity. LUNGS: Equal air entry with no crackles, wheeze, rhonchi or dullness. CVS: S1 and S2 normal with no audible murmur, regular rhythm. ABDOMEN: No hepatosplenomegaly, normal bowel sounds, no guarding or rigidity. SPINE: No scoliosis or deformity SKIN: No rashes CENTRAL NERVOUS SYSTEM: No focal deficits, tone is normal in all 4 extremities. EXTREMITIES: There is no peripheral edema. No clubbing, no cyanosis. Pe ripheral pulses are intact. - Labs CBC & Chem 7: 01/26/23 04:40 01/26/23 04:40 Labs: Abnormal Lab Results - Last 24 Hours (Table) 01/26/23 Range/Units 04:40 Hgb 10.8 L (11.4-16.0) gm/dL MCV 75.8 L (80.0-100.0) fL MCH 23.0 L (25.0-35.0) pg MCHC 30.4 L (31.0-37.0) g/dL RDW 16.9 H (11.5-15.5) % Microbiology - Last 24 Hours (Table) 01/24/23 03:15 Blood Culture - Preliminary Blood 01/24/23 03:00 Blood Culture - Preliminary Blood Assessment and Plan Assessment: Mild hemoptysis, likely secondary to sequelae of pneumonia. A chest CTA on arrival showed no evidence of pulmonary embolism. It did show conglomerate soft tissue surrounding the right pulmonary hilum, and to a lesser extent the left, with calcification. This could represent a sequelae of prior infection. Underlying mass was not excluded. There was right lower lobe pulmonary vascular congestion likely related to above. There is not much change from her chest CT seven days ago. Given the patient's age, and the fact that she's never has lukee r been a smoker, malignancy is felt to be less likely. Bronchoscopy from 01/25/2023 was aborted due to patient's restlessness and bleeding airways. We'll be performed today and #8 2022 while intubated and better sedated. Mild microcytic, hypochromic anemia Morbid obesity, with a BMI of 43 kg/m Never smoker Plan: The patient was seen and evaluated Stable and on room air Plan is for repeat bronchoscopy today Possibly home today once recovered I have personally seen and examined the patient, performed the documentation and the assessment and plan as written. Number of minutes spent on the visit: 10.
[2023-01-26] MEDS ORDERED: PHENYLEPHRINE-0.9% NACL SYG 1,000 MCG/10 ML SYRINGE ONE (14:04)
[2023-01-26] MEDS ORDERED: LIDOCAINE 4% LTA KIT (4 ML) TOPICAL ONE (14:04)
[2023-01-26] MEDS ORDERED: IV FLUID CONTINUATION 1,000 ML IV ONE (14:04)
[2023-01-26] MEDS ORDERED: PROPOFOL 10 MG/ML 20 ML VIAL IV ONE (14:04)
[2023-01-26] MEDS ORDERED: MIDAZOLAM 2 MG/2 ML VIAL ONE (14:04)
[2023-01-26] MEDS ORDERED: GLYCOPYRROLATE 0.2 MG/ML 2 ML VIAL ONE (14:04)
[2023-01-26] MEDS ORDERED: fentaNYL (PF) 50 MCG/ML 2 ML AMP ONE (14:04)
[2023-01-26] MEDS ORDERED: ROCURONIUM 10 MG/ML (5 ML VIAL) IV ONE (14:04)
[2023-01-26] MEDS ORDERED: SUCCINYLCHOLINE CHLORIDE 200 MG/10 ML VIAL IV ONE (14:04)
[2023-01-26] MEDS ORDERED: LIDOCAINE 2% INJ 20 MG/ML (2 ML VIAL) ONE (14:04)
[2023-01-26] MEDS ORDERED: EPINEPHrine 10 ML SYRINGE (0.1 MG/ML) MISCELLANE ONE (14:41)
[2023-01-26 14:54] LABS: C-ANCA <1:20 Titer (<1:20)
[2023-01-26] MEDS ORDERED: IPRATROPIUM-ALBUTEROL 3 ML NEB INHALATION PRN (15:55)
[2023-01-26] MEDS ORDERED: propofoL 100 ML IV ONE (16:03)
[2023-01-26] MEDS ORDERED: CISATRACURIUM 2 MG/ML 5 ML VIAL IV ONE ×3 (16:13→19:09)
[2023-01-26 16:15] LABS: Glucose,Whole Blood 148 mg/dL (70-110)
[2023-01-26] MEDS: CISATRACURIUM 200 MG in SODIUM CHLORIDE 0.9% 180 ML IV SCH (16:28)
[2023-01-26 16:41] LABS: ABG Base Excess -3.5 mmol/L; ABG HCO3 26 mmol/L (21-25); ABG Oxygen Saturation 93.6 % (94-97); ABG PO2 87 mmHg (83-108); ABG TCO2 28 mmol/L (19-24); Allen Test Performed? Yes
[2023-01-26 16:43] LABS: ABG PCO2 76 mmHg (35-45); ABG PH 7.14 (7.35-7.45)
--- NOTE | 2023-01-26 16:46 | XR ---
EXAMINATION TYPE: XR chest 1V portable DATE OF EXAM: 01/26/2023 Comparison: 01/23/2023 Clinical History: 32-year-old female with Tube placement Findings: Satisfactory ET tube. NG tube courses below the diaphragm. Heart upper limits of normal in size. In increasing activity mid and lower lung opacities. Possible small left pleural effusion. Impression: 4. Satisfactory ET and NG tube. 2. Increasing patchy airspace disease mid and lower lungs. Likely small left pleural effusion as well . Correlate for developing pulmonary edema versus infectious or aspiration pneumonitis.
[2023-01-26] MEDS: IPRATROPIUM-ALBUTEROL 3 ML NEB INHALATION SCH ×3 (17:30→23:35)
[2023-01-26] MEDS: methylPREDNISolone SOD SUCCI 40 MG/ML 1 ML VIAL IV SCH (17:46)
[2023-01-26 18:10] LABS: ABG HCO3 25 mmol/L (21-25); ABG Oxygen Saturation 99.7 % (94-97); ABG PCO2 50 mmHg (35-45); ABG PO2 >400 mmHg (83-108); ABG TCO2 26 mmol/L (19-24); Allen Test Performed? Yes
--- NOTE | 2023-01-26 19:02 | P.PN ---
Subjective Progress Note Date: 01/26/23 Hospital course: Patient is a 32-year-old female with GERD, iron deficiency, and depression who presented with complaints of hemoptysis and a cough of several months duration. In the ER she underwent an extensive evaluation. Initial vital signs showed tachycardia at a rate of 118. Laboratory analysis was remarkable for hemoglobin 10.9, glucose 126, CRP 2.6. Viral panel testing was negative for influenza a/B/RSV/COVID-19. CTA of the chest showed no pulmonary embolism but did show conglomerate soft tissue on the right pulmonary hilum. Patient was placed on observation for hemoptysis. She was seen by pulmonary. Attempted bronchoscopy on 01/25/23 and could not get adaquate sedation with conscious sedation and therefore patient scheduled to undergo bronchoscopy later today. Physical exam: Patient seen and evaluated at bedside this morning. She currently was resting comfortably and denied having any complaints. Patient anxious to get home to her son. She is awaiting bronchoscopy to be completed later this afternoon. Vital signs reviewed and stable. General: Nontoxic, no distress and appears stated age. Derm: Skin warm and dry, normal coloration for ethnicity. Head: Atraumatic, normocephalic and symmetric. Eyes: EOMs intact, no lid lag, and anicteric sclera Mouth: no lip lesions, mucus membranes moist Cardiovascular: regular rate and rhythm with normal S1S2, no murmur, positive posterior tibial pulses bilaterally, and cap refill < 2 seconds. Lungs: Respirations even, regular, and unlabored on room air. Lungs CTA bilaterally, no rhonchi, no rales, no wheezing, and no accessory muscle usage. Abdominal: soft, nontender to palpation, no guarding, no appreciable organomegaly Ext: ROM intact. No gross muscle atrophy, no edema, no contractures Neuro: Speech clear, face symmetrical and CN II-XII grossly intact with no noted focal neuro deficits Psych: Alert and oriented to person, place, time, and situation. Appropriate and pleasant affect. Assessment and Plan of Care: Hemoptysis with pulmonary hilum irregularity Chronic cough Microcytic anemia Class III obesity with BMI 43.3 GERD Depression -Pulmonary r following, planning to take patient for bronchoscopy later today. -Continue with Levaquin 750 mg IVPB every 24 hours -Continue Protonix 40 mg daily -Continue Zoloft 150 mg daily -Outpatient structured weight loss Data reviewed: Vital signs reviewed and stable. Blood pressure 118/73, heart rate 80, respiratory rate 14, temp 97.6F, SpO2 of 97% on room air. Morning labs reviewed. CBC showing stable normocytic anemia with hemoglobin of 10.8 with previous hemoglobin on 01/23/23 of 10.9. BMP was unremarkable. CODE STATUS: Full code DVT prophylaxis: SCDs Discussed with: Pt and RN Anticipated discharge date: Clinical course to determine Anticipated discharge place: Home Patient was seen independently by Nurse Pracitioner. This document was prepared using [employer] dictation software. Please allow for errors in blaster helper, while rare they do occur. Per Gonzalez NP rendered care for this patient independently, reviewed the findings and plan as documented in the note above. I did not physically speak with or examine the patient on this date. Objective - Vital Signs Vital signs: Vital Signs Temp 98 F 01/26/23 07:00 Pulse 84 01/26/23 07:00 Resp 14 01/26/23 07:00 BP 149/89 01/26/23 07:00 Pulse Ox 98 01/26/23 07:00 FiO2 Intake & Output 01/25/23 01/26/23 01/26/23 18:59 06:59 18:59 Intake Total 800 Balance 800 Intake: IV 200 Intake, IV Titration 600 Amount Sodium Chloride 0.9% 1, 600 000 ml @ 75 mls/hr IV . [id number] [facility] Rx#:[id number] Other: Voiding Method Toilet # Voids 2 - Labs CBC & Chem 7: 01/28/23 04:43 01/28/23 04:43 Labs: Abnormal Lab Results - Last 24 Hours (Table) 01/26/23 Range/Units 04:40 Hgb 10.8 L (11.4-16.0) gm/dL MCV 75.8 L (80.0-100.0) fL MCH 23.0 L (25.0-35.0) pg MCHC 30.4 L (31.0-37.0) g/dL RDW 16.9 H (11.5-15.5) % Microbiology - Last 24 Hours (Table) 01/24/23 03:15 Blood Culture - Preliminary Blood 01/24/23 03:00 Blood Culture - Preliminary Blood
[2023-01-26] MEDS: CHLORHEXIDINE GLUCONATE 15 ML CUP MUCOUS MEM SCH (19:55)
[2023-01-26] MEDS: SERTRALINE 50 MG TAB PO SCH (20:28)
[2023-01-26] MEDS ORDERED: LEVOFLOXACIN 500 MG TAB PO SCH (21:00)
--- NOTE | 2023-01-26 22:07 | PCN ---
PROCEDURE NOTE PROCEDURES PERFORMED: Bronchoscopy, airway examination, therapeutic lavage, bronchoalveolar lavage, brushes right upper lobe; endobronchial biopsies, right upper lobe, right mainstem; bronchoalveolar lavage, right middle lobe. PREOPERATIVE DIAGNOSES: Hemoptysis, pneumonia. POSTOPERATIVE DIAGNOSES: Hemoptysis, pneumonia. TIMBER REPAIRER: Aixa Stallworth ANESTHESIA PROVIDED: General anesthesia on this patient. DESCRIPTION OF PROCEDURE: After the patient was on the effects of general anesthesia, and intubated, the bronchoscope was introduced through the bronchoscope adapter connected to the endotracheal tube. The bronchoscope was taken down into the trachea. Initially, there was bleeding noted from both lungs, right greater than left. The mucosa was very friable. There was no endobronchial mass or tumor. There were minimal secretions. Most of what we saw was either blood clots or bright red blood. Next we did brushes in the area of the right upper lobe, right mainstem. Subsequent to that, we did endobronchial biopsies, multiple, in the area of the right mainstem, right upper lobe area. The BAL was done in the right middle lobe. Initially, the patient tolerated that portion of procedure very well. There was some bleeding. The bleeding was controlled with epinephrine and cold saline. Unfortunately, there was a large clot noted in the airway, saddling over the tracheal rasta. We tried multiple various devices to get the clot out but could not. We decided the best thing to do at this point was to stop the procedure, keep the patient intubated and admit her to the intensive care unit. We will attempt to remove the clot again tomorrow at the bedside in the intensive care unit. The patient will be transported to the ICU. I notified the charge nurse. I will speak to the patient's mother. No additional recommendations are made. The patient was stable throughout the procedure and tolerated the procedure well. MMODL / IJN: [id number] / MTDD
[2023-01-27] MEDS: methylPREDNISolone SOD SUCCI 40 MG/ML 1 ML VIAL IV SCH ×5 (00:09→23:58)
[2023-01-27] MEDS: ACETAMINOPHEN TAB 325 MG TAB PO PRN (00:38)
--- NOTE | 2023-01-27 00:55 | P.CONS ---
History of Present Illness - Reason for Consult Consult date: 01/26/23 Suspected bleeding diathesis - History of Present Illness The pt is a 32-year-old white female, who came into the hospital with 1 day history of coughing up blood. The patient had developed a cough about a month ago, and was treated for pneumonia. She had some partial relief of symptoms, followed by recurrence. She was given a repeat course of antibiotics, but had persistence of cough. She was referred to bone marrow metastases and and was supposed to see them in 03/12, but came into the ER because of progression of symptoms and the development of hemoptysis The patient had a bronchoscopy today, which found evidence of bleeding in both the right and left lung, along with very friable appearing mucosa. The patient also had large clots. These were attempted to be suctioned, but the procedure could not be completed because of easy bleeding. The patient was therefore intubated and transferred to the ICU. she had had her first bronchoscopy on 01/25/23, which had also noted bleeding, but could not be completed because of patient movement. Therefore procedure was repeated on 01/26/23 with general anesthesia. Consult was placed due to concern for bleeding diathesis. The patient is intubated and unable to provide history. History was obtained from the pulmonary medicine service, other physician notes, and the patient's mother. There is no known diagnosis of bleeding diathesis involving the patient or other family members. Her mother states that the patient's menstrual cycles were initially normal, but then were heavy, prolonged an irregular at least for some years. She was placed on oral contraceptives, with some improvement. The patient has had dental procedures in the past, as well as one , without any bleeding problems. Apparently the patient did complain of bruising somewhat easily, but according to the history described by the mother, this appears to be fairly superficial and minor. Patient's platelet counts and coags were normal. CT angiogram from 01/23/23 had shown no evidence of PE and no other abnormal findings. Chest x-ray prior to procedure was likewise negative. Review of Systems patient unable to provide, due to being intubated. Obtained from chart and patient's mother Constitutional: Denies chills, Denies fever Eyes: denies blurred vision, denies pain Ears: deny: decreased hearing, ear discharge, earache, tinnitus Ears, nose, mouth and throat: Denies headache, Denies sore throat Cardiovascular: Denies chest pain, Denies shortness of breath Respiratory: Reports as per HPI, Reports cough, Reports hemoptysis Gastrointestinal: Denies abdominal pain, Denies diarrhea, Denies nausea, Denies vomiting Genitourinary: Reports menorrhagia, Denies dysuria, Denies hematuria Menstruation: Reports as per HPI, Reports period heavy Musculoskeletal: Denies myalgias Integumentary: Denies pruritus, Denies rash Neurological: Denies numbness, Denies weakness Psychiatric: Denies anxiety, Denies depression Endocrine: Denies fatigue, Denies weight change Hematologic/Lymphatic: Reports as per HPI, Reports easy bleeding Past Medical History Past Medical History: GERD/Reflux Additional Past Medical History / Comment(s): low iron History of Any Multi-Drug Resistant Organisms: None Reported Past Surgical History: Section Additional Past Surgical History / Comment(s): cyst removed from hand Past Psychological History: Depression Smoking Status: Never smoker Past Alcohol Use History: None Reported Past Drug Use History: None Reported - Past Family History Mother Family Medical History: Diabetes Mellitus, GERD/Reflux Medications and Allergies Home Medications Medication Instructions Recorded Confirmed Type Omeprazole Magnesium [PriLOSEC OTC] 40 mg PO HS 01/23/23 01/23/23 History Sertraline [Zoloft] 150 mg PO HS 01/23/23 01/23/23 History Allergies Allergy/AdvReac Type Severity Reaction Status Date / Time amoxicillin Allergy Rash/Hives Verified 01/23/23 19:33 cefuroxime [From Ceftin] Allergy Rash/Hives Verified 01/23/23 19:33 ciprofloxacin [From Cipro] Allergy Rash/Hives Verified 01/23/23 19:33 clindamycin Allergy Rash/Hives Verified 01/23/23 19:33 Physical Exam Vitals: Vital Signs Temp Pulse Pulse Resp BP BP Pulse Ox 01/26/23 23:41 117 H 01/26/23 23:35 112 H 01/26/23 22:00 109 H 30 H 111/60 98 01/26/23 21:30 108 H 30 H 116/64 98 01/26/23 21:00 110 H 30 H 112/69 98 01/26/23 20:30 122 H 30 H 103/62 99 01/26/23 20:11 118 H 01/26/23 20:00 98.0 F 92 30 H 109/68 99 01/26/23 19:56 01/26/23 19:55 72 01/26/23 19:44 01/26/23 19:30 80 30 H 114/75 99 01/26/23 19:00 93 30 H 88/56 99 01/26/23 18:30 82 30 H 98/62 99 01/26/23 18:19 01/26/23 18:09 90 30 H 99 01/26/23 18:00 92 30 H 97/64 99 01/26/23 17:27 90 30 H 103/61 99 01/26/23 17:00 01/26/23 16:30 97.0 F L 20 87/40 88 L 01/26/23 16:06 01/26/23 15:52 01/26/23 07:00 98 F 84 14 149/89 98 01/26/23 04:51 97.8 F 79 18 165/97 99 FiO2 01/26/23 23:41 01/26/23 23:35 50 01/26/23 22:00 50 01/26/23 21:30 01/26/23 21:00 50 01/26/23 20:30 01/26/23 20:11 01/26/23 20:00 50 01/26/23 19:56 50 01/26/23 19:55 01/26/23 19:44 100 01/26/23 19:30 01/26/23 19:00 01/26/23 18:30 50 01/26/23 18:19 50 01/26/23 18:09 100 01/26/23 18:00 100 01/26/23 17:27 100 01/26/23 17:00 100 01/26/23 16:30 100 01/26/23 16:06 100 01/26/23 15:52 100 01/26/23 07:00 01/26/23 04:51 Intake and Output 01/26/23 01/26/23 01/27/23 14:59 22:59 06:59 Intake Total 1500 561.239 Output Total 675 Balance 1500 -113.761 Intake: IV 900 450 Sodium Chloride 0.9% 1, 450 000 ml @ 75 mls/hr IV . [id number] [facility] Rx#:[id number] Intake, IV Titration 600 111.239 Amount Cisatracurium 200 mg In 20.166 Sodium Chloride 0.9% 180 ml @ 1 MCG/KG/MIN 7.756 mls/hr IV .Q24H [facility] Rx#: [id number] Sodium Chloride 0.9% 1, 600 000 ml @ 75 mls/hr IV . [id number] [facility] Rx#:[id number] propofoL 1,000 mg In 91.073 Empty Bag 1 bag @ 15 MCG/ KG/MIN 11.635 mls/hr IV . Q8H36M [facility] Rx#:[id number] Output: Urine 650 Estimated Blood Loss 25 Other: Voiding Method Indwelling Catheter - Constitutional sedated on vent - EENT Eyes: PERRLA ENT: other (ET tube in situ) - Neck Neck: no lymphadenopathy Thyroid: bilateral: normal size - Respiratory Respiratory: bilateral: CTA - Cardiovascular Rhythm: regular Heart sounds: normal: S1, S2 - Gastrointestinal General gastrointestinal: normal bowel sounds, soft - Integumentary Integumentary: normal - Neurologic sedated , on vent - Musculoskeletal Musculoskeletal: generalized weakness - Psychiatric sedated on vent Results CBC & Chem 7: 01/26/23 04:40 01/26/23 04:40 Labs: Abnormal Lab Results - Last 24 Hours (Table) 01/26/23 01/26/23 01/26/23 Range/Units 04:40 16:13 16:39 Hgb 10.8 L (11.4-16.0) gm/dL MCV 75.8 L (80.0-100.0) fL MCH 23.0 L (25.0-35.0) pg MCHC 30.4 L (31.0-37.0) g/dL RDW 16.9 H (11.5-15.5) % ABG pH 7.14 L* (7.35-7.45) ABG pCO2 76 H* (35-45) mmHg ABG pO2 (83-108) mmHg ABG HCO3 26 H (21-25) mmol/L ABG Total CO2 28 H (19-24) mmol/L ABG O2 Saturation 93.6 L (94-97) % POC Glucose (mg/dL) 148 H (70-110) mg/dL 01/26/23 Range/Units 18:08 Hgb (11.4-16.0) gm/dL MCV (80.0-100.0) fL MCH (25.0-35.0) pg MCHC (31.0-37.0) g/dL RDW (11.5-15.5) % ABG pH 7.30 L (7.35-7.45) ABG pCO2 50 H (35-45) mmHg ABG pO2 >400 H (83-108) mmHg ABG HCO3 (21-25) mmol/L ABG Total CO2 26 H (19-24) mmol/L ABG O2 Saturation 99.7 H (94-97) % POC Glucose (mg/dL) (70-110) mg/dL Microbiology - Last 24 Hours (Table) 01/24/23 03:15 Blood Culture - Preliminary Blood 01/24/23 03:00 Blood Culture - Preliminary Blood Chest x-ray: report reviewed CT scan - chest: report reviewed Assessment and Plan (1) Bleeding diathesis Narrative/Plan: consult was placed because of concern for a bleeding diathesis, given the findings on bronchoscopy. There is also history of heavy menstrual cycles. -based on the history obtained from the patient's mother, overall the clinical picture is nonspecific without strong evidence of a pre-existing bleeding diathesis. Other than the heavy menstrual cycles, which could be due to other causes, there is no definite evidence of unusual bleeding or bruising prior to this admission - Most bleeding/spotting disorders can't be ruled out, with normal platelet counts and normal coags, which the patient has. The concern would therefore be for disorders that we'll not be picked up on that testing, such as von Willebrand's, or factor VII deficiency. - testing for the same will be ordered. However results will likely take some days to be available. In the meantime, the patient is scheduled for repeat bronchoscopy tomorrow. Case was discussed with pulmonary medicine. It is recommended that the patient receive a dose of DDAVP just prior to the procedure. The same will be ordered. this would also have the potential to reduce risk, if the bleeding was due to mechanical/mucosal vascular causes. - At the time of examination, based on the endotracheal and OG tube contents, there did not appear to be ongoing bleeding - The patient has recurrent, persistent bleeding despite the use of DDAVP, then Sandostatin as well as Kcentra can be utilized Current Visit: Yes Status: Acute Code(s): D69.9 - HEMORRHAGIC CONDITION, UNSPECIFIED SNOMED Code(s): 729353634 (2) Anemia Narrative/Plan: patient has mild anemia with hemoglobin of 10.6. This most likely is due to iron deficiency from her history of heavy menstrual losses. Check iron studies. Current Visit: Yes Status: Acute Code(s): D64.9 - ANEMIA, UNSPECIFIED SNOMED Code(s): 415195051
[2023-01-27] MEDS ORDERED: ARTIFICIAL TEARS-HYPROMELLOSE DROPS 15 ML BTL BOTH EYES PRN (01:43)
[2023-01-27] MEDS: CISATRACURIUM 200 MG in SODIUM CHLORIDE 0.9% 180 ML IV SCH (02:18)
[2023-01-27 03:14] LABS: AST 32 U/L (14-36); African American GFR (CKD) >90 (>60 ml/min/1.73 sqM); Albumin 3.5 g/dL (3.5-5.0); Alkaline Phosphatase 72 U/L (38-126); Anion Gap 16 mmol/L; Blood Urea Nitrogen 10 mg/dL (7-17); Calcium 8.5 mg/dL (8.4-10.2); Carbon Dioxide 12 mmol/L (22-30); Chloride 109 mmol/L (98-107); Glucose 159 mg/dL (74-99); Non-African American GFR(CKD) >90 (>60 ml/min/1.73 sqM); Potassium 4.5 mmol/L (3.5-5.1); Sodium 137 mmol/L (137-145); Total Bilirubin 0.4 mg/dL (0.2-1.3); Total Protein 6.6 g/dL (6.3-8.2)
[2023-01-27 03:20] LABS: ALT 40 U/L (4-34)
[2023-01-27 03:26] LABS: INR 1.1 (<1.2); Prothrombin Time 11.1 sec (9.0-12.0)
[2023-01-27] MEDS: IPRATROPIUM-ALBUTEROL 3 ML NEB INHALATION SCH ×6 (04:03→23:47)
[2023-01-27 04:08] LABS: Appearance,BF Cloudy (Clear); RBC, Body Fluid 860 /UL (0-2000)
[2023-01-27 04:47] LABS: Anisocytosis Slight; Basophils % (A) 0 %; Eosinophils % (A) 0 %; HCT 33.9 % (34.0-46.0); Hypochromasia Marked; Lymphocytes # (A) 0.4 k/uL (1.0-4.8); Lymphocytes % (A) 3 %; MCH 22.9 pg (25.0-35.0); MCHC 29.5 g/dL (31.0-37.0); MCV 77.7 fL (80.0-100.0); Mean Platelet Volume 6.9; Microcytosis Slight; Monocytes # (A) 0.3 k/uL (0-1.0); Monocytes % (A) 2 %; Neutrophils # (A) 12.1 k/uL (1.3-7.7); Neutrophils % (A) 94 %; Platelet Count 432 k/uL (150-450); RBC 4.37 m/uL (3.80-5.40); RDW 17.1 % (11.5-15.5); WBC 12.8 k/uL (3.8-10.6)
[2023-01-27] MEDS: HYDROmorphone 1 MG/ML 1 ML SYRINGE IVP PRN ×3 (05:30→11:03)
[2023-01-27] MEDS: LACTATED RINGERS 1,000 ML IV SCH ×3 (05:38→07:42)
[2023-01-27 06:17] LABS: ABG Base Excess -11.7 mmol/L; ABG HCO3 16 mmol/L (21-25); ABG PCO2 41 mmHg (35-45); ABG PH 7.21 (7.35-7.45); ABG PO2 234 mmHg (83-108); ABG TCO2 18 mmol/L (19-24); Allen Test Performed? Yes
[2023-01-27] MEDS: CHLORHEXIDINE GLUCONATE 15 ML CUP MUCOUS MEM SCH (08:00)
[2023-01-27] MEDS: DOXYCYCLINE 100 MG in SODIUM CHLORIDE 0.9% 100 ML IVPB SCH ×2 (08:00→21:15)
[2023-01-27] MEDS: PANTOPRAZOLE 40 MG/10 ML VIAL IVP SCH (08:00)
[2023-01-27] MEDS ORDERED: DESMOPRESSIN ACETATE 40 MCG in SODIUM CHLORIDE 0.9% 50 ML IVPB ONE (09:05)
[2023-01-27] MEDS: SODIUM CHLORIDE 0.45% 1,000 ML IV SCH ×2 (09:12→23:53)
--- NOTE | 2023-01-27 10:35 | P.PN ---
Subjective Progress Note Date: 01/27/23 I am seeing this patient in new consultation today 01/24/2023 for hemoptysis that started two days ago and abnormal chest CT findings. Patient is a 32-year-old white female who was recently treated for pneumonia back in October, by an urgent care center. Her PCP Dr. Quezada out of [place]. She st ates that she initially improved, but then worsened again in December. She's had multiple rounds of antibiotics, and just recently finished a course of azithromycin. Patient presented to emergency room yesterday afternoon reporting hemoptysis that started the day prior. She showed me several pictures on her phone, and there was yoselin hemoptysis with clots. She states that she is occasionally short of breath on exertion, and has frequent coughing episodes. Denies previous episodes of hemoptysis. Denies any chest pain, fevers. She has never smoked. Denies taking anticoagulants. No recent travel or sick contacts. A chest CTA on arrival showed no evidence of pulmonary embolism. It did show conglomerate soft tissue surrounding the right pulmonary hilum, and to a lesser extent the left with calcification. This could represent a sequelae of prior infection. Underlying mass was not excluded. There was right lower lobe pulmonary vascular congestion likely related to above. There is not much change from her chest CT seven days ago. Given the patient's age, and the fact that she's never has never been a smoker, malignancy is felt to be less likely. Denies weight loss. Patient is currently sitting up in bed, on room air, in no acute distress. There are small amounts of hemoptysis in the emesis basin next to her bed. CBC on arrival showed some mild microcytic hypochromic anemia. Hemoglobin 10.9, hematocrit 35.7, platelets 135, WBC count 8.8. She states that she takes iron supplements. BMP on arrival is unremarkable. Negative for influenza, RSV, COVID-19. Coagulation profile was within normal limits. Patient has stable at this time, and is being admitted to the observation unit. The patient is seen today 01/25/2023 in follow-up in the regular medical floor. She is currently resting in bed. Awake and alert in no acute distress. Denies any significant hemoptysis this morning. Maintaining good O2 saturations in the mid 90s on room air. Afebrile. Hemodynamically stable. ProCalcitonin was 0.03. She is currently on Levaquin. The patient is seen today 01/26/2023 in follow-up on the regular medical floor. She is awake and alert in no acute distress. Sitting up in bed. She is doing well. Maintaining good O2 saturation the upper 90s on room air. She remains on Levaquin. Normal saline 75 ML's per hour. Initiated on prednisone. She's afebrile. White count 6.9. Hemoglobin 10.8. Platelets 334. Sodium 137. Potassium 4.7. Bicarb 26. BUN 9. Creatinine 0.68. Glucose 96. She did undergo bronchoscopy yesterday however she was very restless despite sedation and had very friable airways with bleeding and difficulty visualizing her airways. The procedure was aborted. The plan is to redo a bronchoscopy today while intubated for better control of the situation. P-ANCA and c-ANCA pending. The patient is seen today 01/27/2023 in follow-up in the intensive care unit. Yesterday during her bronchoscopy she was noted to have significant bradycardia leading subsequently requiring epinephrine and then she had developed some clotting and it was felt to leave her intubated on mechanical ventilator overnight. She is currently on assist control mode at a rate of 30, tidal out of 450, FiO2 40% and a PEEP of 12. Morning blood gases revealed a PaO2 of 234, pCO2 41, pH 7.21 on 50% FiO2. Peak pressure 27, plateau pressure of 12. No evidence of airway restriction. No evidence of clot burden. Chest x-ray reveals some infiltrate of the right lower lobe. She is sedated on propofol 50 mcg/kg/m. She's on Nimbex at 2 mcg/kg/m. normal saline at 75 ML's per hour. She is on antibiotics in the form of doxycycline. Continued on DuoNeb inhalations every 4 hours. Today she had undergone a repeat bronchoscopy after receiving DDAVP and there was evidence of old blood however no significant clots. No obstruction. Bronchial wash cultures pending. White count 12.8. Hemoglobin 10.0. Platelets 432. Sodium 137. Potassium 4.5. Bicarb 12. BUN 10. Creatinine 0.63. Glucose 159. Objective - Vital Signs Vital signs: Vital Signs Temp 98.8 F 01/27/23 08:00 Pulse 117 H 01/27/23 09:00 Resp 30 H 01/27/23 09:00 BP 99/47 01/27/23 09:00 Pulse Ox 98 01/27/23 09:00 FiO2 40 01/27/23 08:00 Intake & Output 01/26/23 01/27/23 01/27/23 18:59 06:59 18:59 Intake Total 0290.580 6629.607 335.780 Output Total 275 1090 90 Balance 6516.364 9003.607 245.780 Weight 137.7 kg Intake: IV 1050 1975 150 Lactated Ringers 1,000 ml 1000 @ 999 mls/hr IV .Q1H1M [facility] Rx#:[id number] Sodium Chloride 0.9% 1, 150 975 150 000 ml @ 75 mls/hr IV . [id number] [facility] Rx#:[id number] Intake, IV Titration 606.205 420.607 185.780 Amount Cisatracurium 200 mg In 132.377 Sodium Chloride 0.9% 180 ml @ 1 MCG/KG/MIN 7.756 mls/hr IV .Q24H [facility] Rx#: [id number] Doxycycline 100 mg In 100 Sodium Chloride 0.9% 100 ml @ 100 mls/hr IVPB Q12HR [facility] Rx#:[id number] Sodium Chloride 0.9% 1, 600 000 ml @ 75 mls/hr IV . [id number] [facility] Rx#:[id number] propofoL 1,000 mg In 6.205 288.230 85.780 Empty Bag 1 bag @ 15 MCG/ KG/MIN 11.635 mls/hr IV . Q8H36M [facility] Rx#:[id number] Output: Urine 250 1090 90 Estimated Blood Loss 25 Other: Voiding Method Indwelling Catheter Indwelling Catheter Indwelling Catheter - Exam GENERAL EXAM: Intubated, sedated, 32-year-old female, comfortable in no apparent distress. HEAD: Normocephalic. EYES: Normal reaction of pupils, equal size. NOSE: Clear with pink turbinates. THROAT: No erythema or exudates. NECK: No masses, no JVD. CHEST: No chest wall deformity. LUNGS: Equal air entry with no crackles, wheeze, rhonchi or dullness. CVS: S1 and S2 normal with no audible murmur, regular rhythm. ABDOMEN: No hepatosplenomegaly, normal bowel sounds, no guarding or rigidity. SPINE: No scoliosis or deformity SKIN: No rashes CENTRAL NERVOUS SYSTEM: Sedated, paralyzed, tone is normal in all 4 extremities. EXTREMITIES: There is no peripheral edema. No clubbing, no cyanosis. Peripheral pulses are intact. - Labs CBC & Chem 7: 01/27/23 04:12 01/27/23 02:47 Labs: Abnormal Lab Results - Last 24 Hours (Table) 01/26/23 01/26/23 01/26/23 Range/Units 14:30 16:13 16:39 WBC (3.8-10.6) k/uL Hgb (11.4-16.0) gm/dL Hct (34.0-46.0) % MCV (80.0-100.0) fL MCH (25.0-35.0) pg MCHC (31.0-37.0) g/dL RDW (11.5-15.5) % Neutrophils # (1.3-7.7) k/uL Lymphocytes # (1.0-4.8) k/uL ABG pH 7.14 L* (7.35-7.45) ABG pCO2 76 H* (35-45) mmHg ABG pO2 (83-108) mmHg ABG HCO3 26 H (21-25) mmol/L ABG Total CO2 28 H (19-24) mmol/L ABG O2 Saturation 93.6 L (94-97) % Chloride (98-107) mmol/L Carbon Dioxide (22-30) mmol/L Glucose (74-99) mg/dL POC Glucose (mg/dL) 148 H (70-110) mg/dL ALT (4-34) U/L Fluid Appearance Cloudy A (Clear) 01/26/23 01/27/23 01/27/23 Range/Units 18:08 02:47 04:12 WBC 12.8 H (3.8-10.6) k/uL Hgb 10.0 L (11.4-16.0) gm/dL Hct 33.9 L (34.0-46.0) % MCV 77.7 L (80.0-100.0) fL MCH 22.9 L (25.0-35.0) pg MCHC 29.5 L (31.0-37.0) g/dL RDW 17.1 H (11.5-15.5) % Neutrophils # 12.1 H (1.3-7.7) k/uL Lymphocytes # 0.4 L (1.0-4.8) k/uL ABG pH 7.30 L (7.35-7.45) ABG pCO2 50 H (35-45) mmHg ABG pO2 >400 H (83-108) mmHg ABG HCO3 (21-25) mmol/L ABG Total CO2 26 H (19-24) mmol/L ABG O2 Saturation 99.7 H (94-97) % Chloride 109 H (98-107) mmol/L Carbon Dioxide 12 L (22-30) mmol/L Glucose 159 H (74-99) mg/dL POC Glucose (mg/dL) (70-110) mg/dL ALT 40 H (4-34) U/L Fluid Appearance (Clear) 01/27/23 Range/Units 06:10 WBC (3.8-10.6) k/uL Hgb (11.4-16.0) gm/dL Hct (34.0-46.0) % MCV (80.0-100.0) fL MCH (25.0-35.0) pg MCHC (31.0-37.0) g/dL RDW (11.5-15.5) % Neutrophils # (1.3-7.7) k/uL Lymphocytes # (1.0-4.8) k/uL ABG pH 7.21 L (7.35-7.45) ABG pCO2 (35-45) mmHg ABG pO2 234 H (83-108) mmHg ABG HCO3 16 L (21-25) mmol/L ABG Total CO2 18 L (19-24) mmol/L ABG O2 Saturation 99.0 H (94-97) % Chloride (98-107) mmol/L Carbon Dioxide (22-30) mmol/L Glucose (74-99) mg/dL POC Glucose (mg/dL) (70-110) mg/dL ALT (4-34) U/L Fluid Appearance (Clear) Microbiology - Last 24 Hours (Table) 01/26/23 14:30 Gram Stain - Preliminary Bronchoalviolar Lavage - Right 01/24/23 03:15 Blood Culture - Preliminary Blood 01/24/23 03:00 Blood Culture - Preliminary Blood Assessment and Plan Assessment: Mild hemoptysis, likely secondary to sequelae of pneumonia. A chest CTA on arrival showed no evidence of pulmonary embolism. It did show conglomerate soft tissue surrounding the right pulmonary hilum, and to a lesser extent the left, with calcification. This could represent a sequelae of prior infection. Underlying mass was not excluded. There was right lower lobe pulmonary vascular congestion likely related to above. There is not much change from her chest CT seven days ago. Given the patient's age, and the fact that she's never has never been a smoker, malignancy is felt to be less likely. Bronchoscopy from 01/25/2023 was aborted due to patient's restlessness and bleeding airways. Bronchoscopy repeated on 01/26/2023 and the patient had significant amount of bleeding requiring epinephrine and subsequent clotting was kept intubated on mechanical ventilator overnight in the intensive care unit. Peak pressures of 27 plateau pressures of 12 revealing no evidence of clot burden or no significant airway resistance. Bronchoscopy performed today 01/27/2023 in the intensive care unit after receiving DDAVP and she was found to have old blood but no significant clots. No significant obstruction. Mild microcytic, hypochromic anemia Morbid obesity, with a BMI of 43 kg/m Never smoker Plan: The patient was seen and evaluated Medications and labs reviewed Repeat bronchoscopy and airway exam performed today No significant clot burden, old blood removed We'll plan to hold sedation and give her weaning trial and possible extubation later today Continue bronchodilators, antibiotics Mother was present in the waiting room and updated We will continue to follow and make further recommendations based on her clinical status I have personally seen and examined the patient, performed the documentation and the assessment and plan as written. Number of minutes spent on the visit: 15.
--- NOTE | 2023-01-27 11:14 | XR ---
EXAMINATION TYPE: XR chest 1V portable DATE OF EXAM: 01/27/2023 COMPARISON: 01/26/2023 INDICATION: Tube placement TECHNIQUE: Single frontal view of the chest is obtained. FINDINGS: The heart size is normal. The pulmonary vasculature is normal. Right lower lobe infiltrate is present. Correlate for atelectasis and pneumonia. Follow-up is recomme nded. The tracheal tube tip is above the rasta. Nasogastric tube transverses the thorax. IMPRESSION: 1. Right lower lobe infiltrate. Correlate for pneumonia. Follow-up is recommended. 2. Lines and catheters discussed above.
--- NOTE | 2023-01-27 11:22 | P.PN ---
Subjective Progress Note Date: 01/27/23 Hospital Course: Patient is a 32-year-old female with GERD, iron deficiency, and depression who presented with complaints of hemoptysis and a cough of several months duration. In the ER she underwent an extensive evaluation. Initial vital signs showed tachycardia at a rate of 118. Laboratory analysis was remarkable for hemoglobin 10.9, glucose 126, CRP 2.6. Viral panel testing was negative for influenza a/B/RSV/COVID-19. CTA of the chest showed no pulmonary embolism but did show conglomerate soft tissue on the right pulmonary hilum. Patient was placed on observation for hemoptysis. She was seen by pulmonary. Attempted bronchoscopy on 01/25/23 and could not get adaquate sedation with conscious sedation. Patient had bronchoscopy on 01/26, the mucosa was noted to be very friable, no endobronchial mass or tumor. The bleeding was noted, was controlled with epinephrine: Saline, there was a large clot noted in the airway saddling over the tracheal rasta, difficult to evacuate the clot. Patient was kept intubated and in the ICU for another attempt in the morning. Had repeat bronchoscopy on 01/27, clot was evacuated. Hematology was also consulted. Subjective: Patient seen and examined at bedside. Tolerated bronchoscopy well. Plan for weaning sedation and possible extubation today Pertinent positives and negatives as discussed above, a complete review of systems was performed and all other systems are negative. Vitals Signs Reviewed. General: nontoxic, no distress, appears at stated age Derm: warm, dry Head: atraumatic, normocephalic, symmetric Eyes: anicteric sclera Mouth: no lip lesion, mucus membranes moist Cardiovascular: S1S2 reg, no murmur Lungs: CTA bilateral, no rhonchi, no rales , no accessory muscle use, intubated Abdominal: soft, nontender to palpation, no guarding, no appreciable organomegaly Ext: no gross muscle atrophy, no edema, no contractures Neuro: Sedated Psych: Unable to assess Data Reviewed Today: Pertinent Labs: WBC 12.8, hemoglobin 10, sodium 137, bicarb 12, anion gap 16, creatinine 0.63 Imaging: Chest x-ray independently interpreted, shows right lower lobe opacity Assessment and Plan: She has critically ill, in the medical ICU. Active: Right lower lobe pneumonia Leukocytosis, reactive Hemoptysis with pulmonary hilum irregularity Chronic cough Acute on chronic microcytic anemia -Discussed management directly with pulmonology, plan to wean sedation and extubation today -She is status post bronchoscopy -Continue doxycycline IV -On bronchodilators and IV steroids per pulmonology -Hematology note reviewed, unclear cause of bleeding diathesis, workup pending, iron studies are also pending Chronic: Class III obesity with BMI 43.3 GERD Depression DVT ppx: SCDs Code status: Full code Anticipated discharge place: Pending clinical course Anticipated discharge time: Pending clinical course Objective - Vital Signs Vital signs: Vital Signs Temp 98.8 F 01/27/23 08:00 Pulse 134 H 01/27/23 10:44 Resp 30 H 01/27/23 10:00 BP 95/39 01/27/23 10:00 Pulse Ox 99 01/27/23 10:00 FiO2 40 01/27/23 10:39 Intake & Output 01/26/23 01/27/23 01/27/23 18:59 06:59 18:59 Intake Total 8229.523 0631.607 509.524 Output Total 275 1090 90 Balance 3791.145 4533.607 419.524 Weight 137.7 kg Intake: IV 1050 1975 150 Lactated Ringers 1,000 ml 1000 @ 999 mls/hr IV .Q1H1M [facility] Rx#:[id number] Sodium Chloride 0.9% 1, 150 975 150 000 ml @ 75 mls/hr IV . [id number] [facility] Rx#:[id number] Intake, IV Titration 606.205 420.607 359.524 Amount Cisatracurium 200 mg In 132.377 128.628 Sodium Chloride 0.9% 180 ml @ 1 MCG/KG/MIN 7.756 mls/hr IV .Q24H [facility] Rx#: [id number] Doxycycline 100 mg In 100 Sodium Chloride 0.9% 100 ml @ 100 mls/hr IVPB Q12HR [facility] Rx#:[id number] Sodium Chloride 0.9% 1, 600 000 ml @ 75 mls/hr IV . [id number] [facility] Rx#:[id number] propofoL 1,000 mg In 6.205 288.230 130.896 Empty Bag 1 bag @ 15 MCG/ KG/MIN 11.635 mls/hr IV . Q8H36M [facility] Rx#:[id number] Output: Urine 250 1090 90 Estimated Blood Loss 25 Other: Voiding Method Indwelling Catheter Indwelling Catheter Indwelling Catheter - Labs CBC & Chem 7: 01/27/23 04:12 01/27/23 02:47 Labs: Abnormal Lab Results - Last 24 Hours (Table) 01/26/23 01/26/23 01/26/23 Range/Units 14:30 16:13 16:39 WBC (3.8-10.6) k/uL Hgb (11.4-16.0) gm/dL Hct (34.0-46.0) % MCV (80.0-100.0) fL MCH (25.0-35.0) pg MCHC (31.0-37.0) g/dL RDW (11.5-15.5) % Neutrophils # (1.3-7.7) k/uL Lymphocytes # (1.0-4.8) k/uL ABG pH 7.14 L* (7.35-7.45) ABG pCO2 76 H* (35-45) mmHg ABG pO2 (83-108) mmHg ABG HCO3 26 H (21-25) mmol/L ABG Total CO2 28 H (19-24) mmol/L ABG O2 Saturation 93.6 L (94-97) % Chloride (98-107) mmol/L Carbon Dioxide (22-30) mmol/L Glucose (74-99) mg/dL POC Glucose (mg/dL) 148 H (70-110) mg/dL ALT (4-34) U/L Fluid Appearance Cloudy A (Clear) 01/26/23 01/27/23 01/27/23 Range/Units 18:08 02:47 04:12 WBC 12.8 H (3.8-10.6) k/uL Hgb 10.0 L (11.4-16.0) gm/dL Hct 33.9 L (34.0-46.0) % MCV 77.7 L (80.0-100.0) fL MCH 22.9 L (25.0-35.0) pg MCHC 29.5 L (31.0-37.0) g/dL RDW 17.1 H (11.5-15.5) % Neutrophils # 12.1 H (1.3-7.7) k/uL Lymphocytes # 0.4 L (1.0-4.8) k/uL ABG pH 7.30 L (7.35-7.45) ABG pCO2 50 H (35-45) mmHg ABG pO2 >400 H (83-108) mmHg ABG HCO3 (21-25) mmol/L ABG Total CO2 26 H (19-24) mmol/L ABG O2 Saturation 99.7 H (94-97) % Chloride 109 H (98-107) mmol/L Carbon Dioxide 12 L (22-30) mmol/L Glucose 159 H (74-99) mg/dL POC Glucose (mg/dL) (70-110) mg/dL ALT 40 H (4-34) U/L Fluid Appearance (Clear) 01/27/23 Range/Units 06:10 WBC (3.8-10.6) k/uL Hgb (11.4-16.0) gm/dL Hct (34.0-46.0) % MCV (80.0-100.0) fL MCH (25.0-35.0) pg MCHC (31.0-37.0) g/dL RDW (11.5-15.5) % Neutrophils # (1.3-7.7) k/uL Lymphocytes # (1.0-4.8) k/uL ABG pH 7.21 L (7.35-7.45) ABG pCO2 (35-45) mmHg ABG pO2 234 H (83-108) mmHg ABG HCO3 16 L (21-25) mmol/L ABG Total CO2 18 L (19-24) mmol/L ABG O2 Saturation 99.0 H (94-97) % Chloride (98-107) mmol/L Carbon Dioxide (22-30) mmol/L Glucose (74-99) mg/dL POC Glucose (mg/dL) (70-110) mg/dL ALT (4-34) U/L Fluid Appearance (Clear) Microbiology - Last 24 Hours (Table) 01/26/23 14:30 Gram Stain - Preliminary Bronchoalviolar Lavage - Right 01/24/23 03:15 Blood Culture - Preliminary Blood 01/24/23 03:00 Blood Culture - Preliminary Blood
--- NOTE | 2023-01-27 11:40 | PCN ---
PROCEDURE NOTE PROCEDURES PERFORMED: Bronchoscopy, airway examination, therapeutic lavage, and removal of blood clots in the lower respiratory tract. The patient's procedure was done in the intensive care unit, room 253. GASTROINTESTINAL TECHNICIAN: Dr. Mckinnon. FIRST MACHINE FOLDER: Dr. Aixa Stallworth. DESCRIPTION OF PROCEDURE: The patient was sedated on propofol at 50 mcg/kg per minute and Nimbex 2 mcg/kg per minute. There was informed consent and universal timeout. The patient's mother gave consent. After the patient was on 100% oxygen, the bronchoscope was inserted through the bronchoscope adapter connected to the endotracheal tube. The endotracheal tube itself was free of clots. Once exiting the endotracheal tube, the distal trachea was free of any blood or blood clots. There was no active bleeding. The tracheal rasta was sharp. We did a thorough evaluation of the right upper lobe, right middle lobe and right lower lobe, left upper lobe proper, lingula, left lower lobe. There was no active bleeding. There were old blood clots noted throughout. They were suctioned without difficulty. The airways, for the most part, were completely patent. There was no mass or tumor. The mucosa was still a bit friable, erythematous/hyperemic. Again, no active bleeding. Once the clots were suctioned, the bronchoscope was withdrawn. There was no immediate complication. The patient tolerated the procedure well. MMODL / IJN: [id number] /
[2023-01-27] MEDS ORDERED: FUROSEMIDE 10 MG/ML 4 ML VIAL IV STA (11:52)
[2023-01-27 13:19] LABS: % Iron Saturation 4.3 (12.00-45.00); Ferritin 16.9 ng/mL (10.0-291.0)
[2023-01-27] MEDS ORDERED: ACETAMINOPHEN IV (For NPO) 1,000 MG in EMPTY BAG 1 BAG IVPB STA (15:20)
[2023-01-27] MEDS: SERTRALINE 50 MG TAB PO SCH (21:15)
[2023-01-28] MEDS: IPRATROPIUM-ALBUTEROL 3 ML NEB INHALATION SCH ×3 (04:10→11:26)
[2023-01-28 05:22] LABS: Anisocytosis Slight; Basophils % (A) 0 %; Eosinophils % (A) 0 %; HCT 29.9 % (34.0-46.0); HGB 9.1 gm/dL (11.4-16.0); Hypochromasia Marked; Lymphocytes # (A) 0.6 k/uL (1.0-4.8); Lymphocytes % (A) 4 %; MCH 23.3 pg (25.0-35.0); MCHC 30.3 g/dL (31.0-37.0); MCV 76.9 fL (80.0-100.0); Mean Platelet Volume 7.5; Microcytosis Slight; Monocytes # (A) 0.4 k/uL (0-1.0); Monocytes % (A) 3 %; Neutrophils # (A) 13.5 k/uL (1.3-7.7); Neutrophils % (A) 92 %; Platelet Count 356 k/uL (150-450); RBC 3.89 m/uL (3.80-5.40); RDW 16.9 % (11.5-15.5); WBC 14.6 k/uL (3.8-10.6)
[2023-01-28 05:39] LABS: African American GFR (CKD) >90 (>60 ml/min/1.73 sqM); Anion Gap 7 mmol/L; Blood Urea Nitrogen 16 mg/dL (7-17); Calcium 8.8 mg/dL (8.4-10.2); Carbon Dioxide 25 mmol/L (22-30); Chloride 101 mmol/L (98-107); Glucose 144 mg/dL (74-99); Non-African American GFR(CKD) >90 (>60 ml/min/1.73 sqM); Potassium 4.6 mmol/L (3.5-5.1); Sodium 133 mmol/L (137-145)
[2023-01-28] MEDS: methylPREDNISolone SOD SUCCI 40 MG/ML 1 ML VIAL IV SCH (05:57)
[2023-01-28] MEDS: PANTOPRAZOLE 40 MG/10 ML VIAL IVP SCH (08:22)
[2023-01-28] MEDS: DOXYCYCLINE 100 MG in SODIUM CHLORIDE 0.9% 100 ML IVPB SCH (08:22)
[2023-01-28] MEDS ORDERED: predniSONE 20 MG TAB PO STA (08:51)
[2023-01-28 08:52] VITALS: BP 119/70; RESP 28; TEMP 97.9
[2023-01-28] MEDS ORDERED: DOXYCYCLINE 100 MG CAP PO SCH (09:00)
[2023-01-28] MEDS ORDERED: SODIUM FERRIC GLUCONAT-SUCROSE 125 MG in SODIUM CHLORIDE 0.9% 100 ML IVPB SCH (09:00)
--- NOTE | 2023-01-28 10:04 | P.PN ---
Subjective Progress Note Date: 01/28/23 I am seeing this patient in new consultation today 01/24/2023 for hemoptysis that started two days ago and abnormal chest CT findings. Patient is a 32-year-old white female who was recently treated for pneumonia back in October, by an urgent care center. Her PCP Dr. Quezada out of [place]. She st ates that she initially improved, but then worsened again in December. She's had multiple rounds of antibiotics, and just recently finished a course of azithromycin. Patient presented to emergency room yesterday afternoon reporting hemoptysis that started the day prior. She showed me several pictures on her phone, and there was yoselin hemoptysis with clots. She states that she is occasionally short of breath on exertion, and has frequent coughing episodes. Denies previous episodes of hemoptysis. Denies any chest pain, fevers. She has never smoked. Denies taking anticoagulants. No recent travel or sick contacts. A chest CTA on arrival showed no evidence of pulmonary embolism. It did show conglomerate soft tissue surrounding the right pulmonary hilum, and to a lesser extent the left with calcification. This could represent a sequelae of prior infection. Underlying mass was not excluded. There was right lower lobe pulmonary vascular congestion likely related to above. There is not much change from her chest CT seven days ago. Given the patient's age, and the fact that she's never has never been a smoker, malignancy is felt to be less likely. Denies weight loss. Patient is currently sitting up in bed, on room air, in no acute distress. There are small amounts of hemoptysis in the emesis basin next to her bed. CBC on arrival showed some mild microcytic hypochromic anemia. Hemoglobin 10.9, hematocrit 35.7, platelets 135, WBC count 8.8. She states that she takes iron supplements. BMP on arrival is unremarkable. Negative for influenza, RSV, COVID-19. Coagulation profile was within normal limits. Patient has stable at this time, and is being admitted to the observation unit. The patient is seen today 01/25/2023 in follow-up in the regular medical floor. She is currently resting in bed. Awake and alert in no acute distress. Denies any significant hemoptysis this morning. Maintaining good O2 saturations in the mid 90s on room air. Afebrile. Hemodynamically stable. ProCalcitonin was 0.03. She is currently on Levaquin. The patient is seen today 01/26/2023 in follow-up on the regular medical floor. She is awake and alert in no acute distress. Sitting up in bed. She is doing well. Maintaining good O2 saturation the upper 90s on room air. She remains on Levaquin. Normal saline 75 ML's per hour. Initiated on prednisone. She's afebrile. White count 6.9. Hemoglobin 10.8. Platelets 334. Sodium 137. Potassium 4.7. Bicarb 26. BUN 9. Creatinine 0.68. Glucose 96. She did undergo bronchoscopy yesterday however she was very restless despite sedation and had very friable airways with bleeding and difficulty visualizing her airways. The procedure was aborted. The plan is to redo a bronchoscopy today while intubated for better control of the situation. P-ANCA and c-ANCA pending. The patient is seen today 01/27/2023 in follow-up in the intensive care unit. Yesterday during her bronchoscopy she was noted to have significant bradycardia leading subsequently requiring epinephrine and then she had developed some clotting and it was felt to leave her intubated on mechanical ventilator overnight. She is currently on assist control mode at a rate of 30, tidal out of 450, FiO2 40% and a PEEP of 12. Morning blood gases revealed a PaO2 of 234, pCO2 41, pH 7.21 on 50% FiO2. Peak pressure 27, plateau pressure of 12. No evidence of airway restriction. No evidence of clot burden. Chest x-ray reveals some infiltrate of the right lower lobe. She is sedated on propofol 50 mcg/kg/m. She's on Nimbex at 2 mcg/kg/m. normal saline at 75 ML's per hour. She is on antibiotics in the form of doxycycline. Continued on DuoNeb inhalations every 4 hours. Today she had undergone a repeat bronchoscopy after receiving DDAVP and there was evidence of old blood however no significant clots. No obstruction. Bronchial wash cultures pending. White count 12.8. Hemoglobin 10.0. Platelets 432. Sodium 137. Potassium 4.5. Bicarb 12. BUN 10. Creatinine 0.63. Glucose 159. The patient is seen today 01/28/2023 in follow-up in the intensive care unit. She was successfully extubated yesterday. She is maintaining O2 saturations in the 90s on 2 L/m per nasal cannula. Chest x-ray continues to show clearing of the infiltrate of the right lower lobe. She's been afebrile. Hemodynamically stable. Blood cultures reveal no growth. Bronchial lavage is pending. White count 14.6. Hemoglobin 9.1. Platelets 356. Sodium 133. Potassium 4.6. Bicarb 25. BUN 16. Creatinine 0.64. Glucose 144. She is continued on DuoNeb inhalations, doxycycline, steroids. Objective - Vital Signs Vital signs: Vital Signs Temp 97.9 F 01/28/23 08:00 Pulse 104 H 01/28/23 09:00 Resp 28 H 01/28/23 08:00 BP 119/70 01/28/23 08:00 Pulse Ox 94 L 01/28/23 08:00 FiO2 40 01/27/23 11:10 Intake & Output 01/27/23 01/28/23 01/28/23 18:59 06:59 18:59 Intake Total 1762.579 9807 425 Output Total 2655 770 0 Balance -7526.481 0534 425 Weight 134.5 kg Intake: IV 825 75 Sodium Chloride 0.9% 1, 825 75 000 ml @ 75 mls/hr IV . [id number] [facility] Rx#:[id number] Intake, IV Titration 359.524 950 425 Amount Cisatracurium 200 mg In 128.628 Sodium Chloride 0.9% 180 ml @ 1 MCG/KG/MIN 7.756 mls/hr IV .Q24H [facility] Rx#: [id number] Doxycycline 100 mg In 100 200 100 Sodium Chloride 0.9% 100 ml @ 100 mls/hr IVPB Q12HR [facility] Rx#:[id number] Sodium Chloride 0.45% 1, 750 225 000 ml @ 75 mls/hr IV . [id number] [facility] Rx#:[id number] Sodium Ferric Gluconat- 100 Sucrose 125 mg In Sodium Chloride 0.9% 100 ml @ 100 mls/hr IVPB DAILY [facility] Rx#:[id number] propofoL 1,000 mg In 130.896 Empty Bag 1 bag @ 15 MCG/ KG/MIN 11.635 mls/hr IV . Q8H36M [facility] Rx#:[id number] Oral 800 Output: Gastric Drainage 250 Urine 2405 770 0 Uretheral (Montero) 150 Other: Voiding Method Indwelling Catheter Bedside Commode Bedside Commode - Exam GENERAL EXAM: Alert, oriented, very pleasant obese 32-year-old female, on 2 L nasal cannula, comfortable in no apparent distress. HEAD: Normocephalic. EYES: Normal reaction of pupils, equal size. NOSE: Clear with pink turbinates. THROAT: No erythema or exudates. NECK: No masses, no JVD. CHEST: No chest wall deformity. LUNGS: Equal air entry with few rhonchi right lung base. CVS: S1 and S2 normal with no audible murmur, regular rhythm. ABDOMEN: No hepatosplenomegaly, normal bowel sounds, no guarding or rigidity. SPINE: No scoliosis or deformity SKIN: No rashes CENTRAL NERVOUS SYSTEM: No focal deficits, tone is normal in all 4 extremities. EXTREMITIES: There is no peripheral edema. No clubbing, no cyanosis. Peripheral pulses are intact. - Labs CBC & Chem 7: 01/28/23 04:43 01/28/23 04:43 Labs: Abnormal Lab Results - Last 24 Hours (Table) 01/27/23 01/28/23 01/28/23 Range/Units 08:28 04:43 04:43 WBC 14.6 H (3.8-10.6) k/uL Hgb 9.1 L (11.4-16.0) gm/dL Hct 29.9 L (34.0-46.0) % MCV 76.9 L (80.0-100.0) fL MCH 23.3 L (25.0-35.0) pg MCHC 30.3 L (31.0-37.0) g/dL RDW 16.9 H (11.5-15.5) % Neutrophils # 13.5 H (1.3-7.7) k/uL Lymphocytes # 0.6 L (1.0-4.8) k/uL Sodium 133 L (137-145) mmol/L Glucose 144 H (74-99) mg/dL Iron 13 L (50-170) UG/DL % Saturation 4.30 L (12.00-45.00) Microbiology - Last 24 Hours (Table) 01/24/23 03:15 Blood Culture - Preliminary Blood 01/24/23 03:00 Blood Culture - Preliminary Blood 01/26/23 14:30 Gram Stain - Preliminary Bronchoalviolar Lavage - Right Assessment and Plan Assessment: Mild hemoptysis, likely secondary to sequelae of pneumonia. A chest CTA on arrival showed no evidence of pulmonary embolism. It did show conglomerate soft tissue surrounding the right pulmonary hilum, and to a lesser extent the left, with calcification. This could represent a sequelae of prior infection. Un derlying mass was not excluded. There was right lower lobe pulmonary vascular congestion likely related to above. There is not much change from her chest CT seven days ago. Given the patient's age, and the fact that she's never has never been a smoker, malignancy is felt to be less likely. Bronchoscopy from 01/25/2023 was aborted due to patient's restlessness and bleeding airways. Bronchoscopy repeated on 01/26/2023 and the patient had significant amount of bleeding requiring epinephrine and subsequent clotting was kept intubated on mechanical ventilator overnight in the intensive care unit. Peak pressures of 27 plateau pressures of 12 revealing no evidence of clot burden or no signifi cant airway resistance. Bronchoscopy performed today 01/27/2023 in the intensive care unit after receiving DDAVP and she was found to have old blood but no significant clots. No significant obstruction. Mild microcytic, hypochromic anemia Morbid obesity, with a BMI of 45 kg/m Never smoker Plan: The patient was seen and evaluated Chest x-ray, medications and labs reviewed She is cleared for discharge from the pulmonary standpoint Complete a course of antibiotics Complete a prednisone taper Follow up in our office in 1 week I have personally seen and examined the patient, performed the documentation and the assessment and plan as written. Number of minutes spent on the visit: 10.
--- NOTE | 2023-01-28 11:09 | XR ---
EXAMINATION TYPE: XR chest 1V portable DATE OF EXAM: 01/28/2023 COMPARISON: 01/27/2023 INDICATION: Tube placement TECHNIQUE: Single frontal view of the chest is obtained. FINDINGS: The heart size is probably prominent. The pulmonary vasculature is normal. Right lower lobe infiltrate is present. Correlate for pneumonia. Findings may have slight improvement over the interval IMPRESSION: 1. Improving right lower lobe infiltrate. 2. Removal of prior lines and catheters.
--- NOTE | 2023-01-28 11:32 | P.DS ---
Providers Date of admission: 01/23/23 18:10 Expected date of discharge: 01/28/23 Attending physician: Sera Guthrie DO Consults: 01/23/23 18:11 Consult Physician Urgent Consulting Provider: Jonah Mckinnon Consult Reason/Comments: Hemoptysis, abnormal chest CT, pulmonary vascular congestion Do you want consulting provider notified?: Yes 01/26/23 15:57 Consult Physician Routine Consulting Provider: Peewee Mederos Consult Reason/Comments: hemoptysis Do you want consulting provider notified?: Already Contacted Primary care physician: Adan Quezada [facility] Course: Discharge Diagnosis: Right lower lobe pneumonia Leukocytosis, reactive Hemoptysis with pulmonary hilum irregularity Chronic cough Bronchospasm Deficiency anemia Hospital Course: Patient is a 32-year-old female with GERD, iron deficiency, and depression who presented with complaints of hemoptysis and a cough of several months duration. In the ER she underwent an extensive evaluation. Initial vital signs showed tachycardia at a rate of 118. Laboratory analysis was remarkable for hemoglobin 10.9, glucose 126, CRP 2.6. Viral panel testing was negative for influenza a/B/RSV/COVID-19. CTA of the chest showed no pulmonary embolism but did show conglomerate soft tissue on the right pulmonary hilum. Patient was admitted for hemoptysis. She was seen by pulmonary. Attempted bronchoscopy on 01/25/23 and could not get adaquate sedation with conscious sedation. Patient had bronchoscopy on 01/26, the mucosa was noted to be very friable, no endobronchial mass or tumor. The bleeding was noted, was controlled with epinephrine and cold Saline, there was a large clot noted in the airway saddling over the tracheal rasta, difficult to evacuate the clot. Patient was kept intubated and in the ICU for another attempt in the morning. Had repeat bronchoscopy on 01/27, clot was evacuated. Patient was subsequently extubated, respiratory function stable. Hematology was also consulted. Patient has iron deficiency anemia. Does have a right lower lobe opacity concerning for pneumonia. Patient being discharged on oral antibiotics, and on short course of steroids and bronchodilators for bronchospasm. Also being discharged on oral iron supplements. She'll follow-up with hematology and pulmonology outpatient. Patient seen and examined at bedside. Vital signs reviewed and stable. General: nontoxic, no distress, appears at stated age Derm: warm, dry Head: atraumatic, normocephalic, symmetric Eyes: EOMI, no lid lag, anicteric sclera Mouth: no lip lesion, mucus membranes moist Cardiovascular: S1S2 reg, no murmur Lungs: CTA bilateral, no rhonchi, no rales , no accessory muscle use Abdominal: soft, nontender to palpation, no guarding, no appreciable organomegaly Ext: no gross muscle atrophy, no edema, no contractures Neuro: CN II-XI grossly intact, no focal neuro deficits Psych: Alert, oriented, appropriate affect A total of 36 minutes of time were spent preparing this complex discharge summary. Patient was discharged on 01/28/23 at 11:04. Patient Condition at Discharge: Stable Plan - Discharge Summary Discharge Rx Participant: No New Discharge Prescriptions: New predniSONE [Deltasone] 40 mg PO DAILY #8 tab Ferrous Sulfate [Feosol] 325 mg PO DAILY #60 tab Doxycycline [Vibramycin] 100 mg PO BID #10 cap Ascorbic Acid [Vitamin C] 250 mg PO DAILY #60 tablet Albuterol Sulfate [Albuterol Sulfate Hfa] 1 puff PO Q4-6H PRN #8.5 gm PRN Reason: Shortness Of Breath Or Wheezing Continue Omeprazole Magnesium [PriLOSEC OTC] 40 mg PO HS Sertraline [Zoloft] 150 mg PO HS Discharge Medication List Omeprazole Magnesium [PriLOSEC OTC] 40 mg PO HS 01/23/23 [History] Sertraline [Zoloft] 150 mg PO HS 01/23/23 [History] Albuterol Sulfate [Albuterol Sulfate Hfa] 1 puff PO Q4-6H PRN #8.5 gm 01/28/23 [Rx] Ascorbic Acid [Vitamin C] 250 mg PO DAILY #60 tablet 01/28/23 [Rx] Doxycycline [Vibramycin] 100 mg PO BID #10 cap 01/28/23 [Rx] Ferrous Sulfate [Feosol] 325 mg PO DAILY #60 tab 01/28/23 [Rx] predniSONE [Deltasone] 40 mg PO DAILY #8 tab 01/28/23 [Rx] Follow up Appointment(s)/Referral(s): Peewee Mederos [STAFF PHYSICIAN] - 1 Week Jonah Mckinnon DO [Doctor of Osteopathic Medicine] - 1 Week Adan Quezada MD [Primary Care Provider] - 1-2 days Patient Instructions/Handouts: Coughing Up Blood (Hemoptysis) (GEN), Bacterial Pneumonia (DC) Activity/Diet/Wound Care/Special Instructions: Please see your PCP. Please see hematology and pulmonology. Call Sunday to make follow up appointments. Discharge Disposition: HOME SELF-CARE
[2023-01-28 11:39] VITALS: PULSE 94
[2023-01-29] MEDS ORDERED: predniSONE 20 MG TAB PO SCH (09:00)
--- NOTE | 2023-01-29 09:02 | P.PN ---
Subjective Progress Note Date: 01/28/23 Principal diagnosis: diathesis, anemia Patient was seen in the ICU at today's visit. She reports improvement in breathing but still experiencing mild shortness of breath. SPO2 94% on 2 L. Denies any acute events of bleeding overnight. Hemoglobin stable at 9.1 today. Objective - Vital Signs Vital signs: Vital Signs Temp 97.9 F 01/28/23 08:00 Pulse 104 H 01/28/23 09:00 Resp 28 H 01/28/23 08:00 BP 119/70 01/28/23 08:00 Pulse Ox 94 L 01/28/23 08:00 FiO2 40 01/27/23 11:10 Intake & Output 01/27/23 01/28/23 01/28/23 18:59 06:59 18:59 Intake Total 8308.991 6219 425 Output Total 2655 770 0 Balance -6204.966 5344 425 Weight 134.5 kg Intake: IV 825 75 Sodium Chloride 0.9% 1, 825 75 000 ml @ 75 mls/hr IV . [id number] AILIN Rx#:[id number] Intake, IV Titration 359.524 950 425 Amount Cisatracurium 200 mg In 128.628 Sodium Chloride 0.9% 180 ml @ 1 MCG/KG/MIN 7.756 mls/hr IV .Q24H AILIN Rx#: [id number] Doxycycline 100 mg In 100 200 100 Sodium Chloride 0.9% 100 ml @ 100 mls/hr IVPB Q12HR AILIN Rx#:[id number] Sodium Chloride 0.45% 1, 750 225 000 ml @ 75 mls/hr IV . [id number] AILIN Rx#:[id number] Sodium Ferric Gluconat- 100 Sucrose 125 mg In Sodium Chloride 0.9% 100 ml @ 100 mls/hr IVPB DAILY AILIN Rx#:[id number] propofoL 1,000 mg In 130.896 Empty Bag 1 bag @ 15 MCG/ KG/MIN 11.635 mls/hr IV . Q8H36M AILIN Rx#:[id number] Oral 800 Output: Gastric Drainage 250 Urine 2405 770 0 Uretheral (Montero) 150 Other: Voiding Method Indwelling Catheter Bedside Commode Bedside Commode - Constitutional General appearance: Present: average body habitus, no acute distress - EENT Eyes: Present: anicteric sclerae, EOMI ENT: Present: hearing grossly normal - Respiratory Details: breathing is even and unlabored - Cardiovascular Details: skin warm and dry - Integumentary Integumentary: Absent: cyanotic, jaundiced - Neurologic Neurologic Comment(s): grossly intact - Musculoskeletal Musculoskeletal: Present: strength equal bilaterally - Psychiatric Psychiatric: Present: A&O x's 3, appropriate affect, intact judgment & insight - Labs CBC & Chem 7: 01/28/23 04:43 01/28/23 04:43 Labs: Abnormal Lab Results - Last 24 Hours (Table) 01/27/23 01/28/23 01/28/23 Range/Units 08:28 04:43 04:43 WBC 14.6 H (3.8-10.6) k/uL Hgb 9.1 L (11.4-16.0) gm/dL Hct 29.9 L (34.0-46.0) % MCV 76.9 L (80.0-100.0) fL MCH 23.3 L (25.0-35.0) pg MCHC 30.3 L (31.0-37.0) g/dL RDW 16.9 H (11.5-15.5) % Neutrophils # 13.5 H (1.3-7.7) k/uL Lymphocytes # 0.6 L (1.0-4.8) k/uL Sodium 133 L (137-145) mmol/L Glucose 144 H (74-99) mg/dL Iron 13 L (50-170) UG/DL % Saturation 4.30 L (12.00-45.00) Microbiology - Last 24 Hours (Table) 01/24/23 03:15 Blood Culture - Preliminary Blood 01/24/23 03:00 Blood Culture - Preliminary Blood 01/26/23 14:30 Gram Stain - Preliminary Bronchoalviolar Lavage - Right - Imaging and Cardiology Chest x-ray: report reviewed Assessment and Plan (1) Anemia Status: Acute Priority: High Code(s): D64.9 - ANEMIA, UNSPECIFIED SNOMED Code(s): 934579632 (2) Bleeding diathesis Status: Acute Priority: High Code(s): D69.9 - HEMORRHAGIC CONDITION, UNSPECIFIED SNOMED Code(s): 807213349 Plan: Bleeding diathesis: -Consult was placed because of concern for a bleeding diathesis, given the findings on bronchoscopy. There is also history of heavy menstrual cycles. -based on the history obtained from the patient's mother, overall the clinical picture is nonspecific without strong evidence of a pre-existing bleeding diathesis. Other than the heavy menstrual cycles, which could be due to other causes, there is no definite evidence of unusual bleeding or bruising prior to this admission - Most bleeding/spotting disorders can't be ruled out, with normal platelet counts and normal coags, which the patient has. The concern would therefore be for disorders that we'll not be picked up on that testing, such as von Willebrand's, or factor VII deficiency. -Testing for the same will be ordered, results pending. Patient underwent bron choscopy yesterday, no active bleeding noted, old clotting suctioned. Patient tolerated procedure well. It was recommended that the patient receive a dose of DDAVP just prior to the procedure. This would also have the potential to reduce risk, if the bleeding was due to mechanical/mucosal vascular causes - If the patient has recurrent, persistent bleeding despite the use of DDAVP, then Sandostatin as well as Kcentra can be utilized Anemia: -Patient has mild anemia with hemoglobin in 10 range. This most likely is due to iron deficiency from her history of heavy menstrual losses. Iron studies consistent with LOPEZ, parenteral iron started. Plan is for discharge today. Will schedule iron infusions outpt, with subsequent f/u to repeat iron studies
[2023-01-29 10:29] LABS: Nucleated Cells, Body Fluid 105 /UL
--- NOTE | 2023-01-30 20:54 | CDI ---
Documentation Clarification Form Date: 01/30/2023 08:35:43 PM From: Martine Cisneros Phone: Admit Date: 01/23/2023 06:10:00 PM Patient Name: Nena Brito Visit Number: [id number] Discharge Date: 01/28/2023 12:20:00 PM ATTENTION: The Clinical Documentation Specialists (CDI) and [facility] Coding Staff appreciate your assistance in clarifying documentation. Please respond to the clarification below the line at the bottom and electronically sign. The CDI & [facility] Coding staff will review the response and follow-up if needed. Please note: Queries are made part of the Legal Health Record. If you have any questions, please contact the author of this message via ITS. Dr. Thanh Curran Your patient is receiving the following: Yesterday during her bronchoscopy she was noted to have significant bradycardia leading subsequently requiring epinephrine and then she had developed some clotting and it was felt to leave her intubated on mechanical ventilatorovernight. Please clarify what condition/diagnosis is being treated. History/Risk Factors: 32yo F, Mildhemoptysis d/t PNA, morbidobesity, GERD, pulmonary hilum irregularity, chronic cough, A/C microcytic anemia, depression Clinical indicators: Largeclotnoted in the airway, saddling over the tracheal rasta. We tried multiple various devices to get theclotout but could not. We decided the best thing to do at this point was to stop the procedure, keep the patient intubated and admit her to the intensive care unit. We willattempt toremovetheclotagain tomorrow at the bedside in the intensive care unit. The patient will be transported to the ICU. Treatment: Discussed management directly with pulmonology, plan to wean sedation and extubationtoday. She isstatus postbronchoscopy. Continue doxycycline IV. On bronchodilators and IV steroids per pulmonology. Hematology note reviewed, unclear cause ofbleedingdiathesis, workuppending, ironstudiesare alsopending. What diagnosis are you treating with intubated on mechanical ventilator? [ x ] Acute Respiratory failure [ x ] Hypoxic [ ] Hypercapnic [ ] Respiratory distress [ ] No additional diagnosis [ ] Other, please specify [ ] Unable to determine (Template Last Reviewed: June 2020) MTDD
== END 2023-01-28 12:20 | disposition home or self-care (01) | DRG 121 ==
LOC: EC 13:20 → 6NMEDSUR 18:09 → OBSVTOIN 18:10 → 6NMEDSUR 19:53 → 2SICU 01-26 15:43
PROVIDERS: ADMIT Internal Medicine; ATTEND Internal Medicine
PROC: 0BJ08ZZ Inspection of Tracheobronchial Tree, Via Natural or Artificial Opening Endoscopic (ICD-10-PCS; 2023-01-25)
PROC: 0BB48ZX Excision of Right Upper Lobe Bronchus, Via Natural or Artificial Opening Endoscopic, Diagnostic (ICD-10-PCS; 2023-01-26)
PROC: 0BD38ZX Extraction of Right Main Bronchus, Via Natural or Artificial Opening Endoscopic, Diagnostic (ICD-10-PCS; 2023-01-26)
PROC: 0BD48ZX Extraction of Right Upper Lobe Bronchus, Via Natural or Artificial Opening Endoscopic, Diagnostic (ICD-10-PCS; 2023-01-26)
PROC: 5A1935Z Respiratory Ventilation, Less than 24 Consecutive Hours (ICD-10-PCS; 2023-01-26)
PROC: 0B9D8ZX Drainage of Right Middle Lung Lobe, Via Natural or Artificial Opening Endoscopic, Diagnostic (ICD-10-PCS; 2023-01-26 08:00)
PROC: 0BB38ZX Excision of Right Main Bronchus, Via Natural or Artificial Opening Endoscopic, Diagnostic (ICD-10-PCS; 2023-01-26 08:00)
PROC: 3E0F8GC Introduction of Other Therapeutic Substance into Respiratory Tract, Via Natural or Artificial Opening Endoscopic (ICD-10-PCS; 2023-01-27)
PROC: 0WCQ8ZZ Extirpation of Matter from Respiratory Tract, Via Natural or Artificial Opening Endoscopic (ICD-10-PCS; principal; 2023-01-27 10:00)
DX: J18.9 Pneumonia, unspecified organism (principal); J96.01 Acute respiratory failure with hypoxia; J98.09 Other diseases of bronchus, not elsewhere classified; R04.2 Hemoptysis; D69.9 Hemorrhagic condition, unspecified; I11.9 Hypertensive heart disease without heart failure; D50.9 Iron deficiency anemia, unspecified; F32.A Depression, unspecified; E66.01 Morbid (severe) obesity due to excess calories; D53.9 Nutritional anemia, unspecified; Z53.9 Procedure and treatment not carried out, unspecified reason; K21.9 Gastro-esophageal reflux disease without esophagitis; N92.0 Excessive and frequent menstruation with regular cycle; R00.1 Bradycardia, unspecified; J98.01 Acute bronchospasm; R05.3 Chronic cough; G47.9 Sleep disorder, unspecified; R45.1 Restlessness and agitation; Z20.822 Contact with and (suspected) exposure to COVID-19; Z68.42 Body mass index [BMI] 45.0-49.9, adult; Z88.0 Allergy status to penicillin; Z88.1 Allergy status to other antibiotic agents; Z79.899 Other long term (current) drug therapy
CPT/HCPCS: 31623; 31624; 31625; 31635; 31645; 36415; 36600; 71045; 71046; 71275; 80048; 80053; 82728; 82805; 83540; 83550; 83605; 84145; 84484; 84703; 85025; 85027; 85230; 85245; 85246; 85379; 85610; 85730; 86140; 86255; 87040; 87070; 87102; 87116; 87205; 87206; 87496; 87498; 87502; 87529; 87634; 87636; 87798; 88104; 88108; 88305; 89050; 93005; 94002; 94003; 94640; 96361; 96365; 99285

== ENCOUNTER 2023-04-19 11:02 | Day surgery (SDC) | payer OTHER ==
[2023-04-18 09:36] VITALS: BMI 44.6
[~2023-04-19 11:02] MED LIST: ATROPINE SULFATE 0.4 MG/ML 1 ML VIAL IM ONE; LACTATED RINGERS 1,000 ML IV SCH
[2023-04-19 11:32] VITALS: TEMP 97.2
[2023-04-19 11:46] LABS: Glucose,Whole Blood 94 mg/dL (70-110)
[2023-04-19] MEDS ORDERED: PROPOFOL 10 MG/ML 20 ML VIAL IV ONE (12:09)
[2023-04-19] MEDS ORDERED: KETAMINE HCL IN 0.9 % NACL 50 MG/5 ML SYRINGE ONE (12:09)
[2023-04-19] MEDS ORDERED: LIDOCAINE 1% INJ 10MG/ML (20 ML MDV) ONE (12:09)
[2023-04-19] MEDS ORDERED: MIDAZOLAM 2 MG/2 ML VIAL ONE (12:09)
[2023-04-19] MEDS ORDERED: fentaNYL (PF) 50 MCG/ML 2 ML AMP ONE (12:09)
[2023-04-19 13:03] VITALS: BP 117/71; PULSE 117; RESP 20
--- NOTE | 2023-04-19 19:23 | PCN ---
PROCEDURE NOTE PULMONARY/CRITICAL CARE PROCEDURE NOTE: PROCEDURES PERFORMED: Bronchoscopy, airway examination, therapeutic lavage, BAL right lower lobe. PREOPERATIVE DIAGNOSIS: Hemoptysis and broncholithiasis. POSTOPERATIVE DIAGNOSIS: Hemoptysis and broncholithiasis. FIRST SUPPLY SPECIALIST: Dr. Aixa Stallworth. ANESTHESIA: Provided general anesthesia. DESCRIPTION OF PROCEDURE: There was informed consent and universal timeout. The procedure took place in endoscopy room #3. After the patient was adequately sedated, the bronchoscope was inserted through the left nostril. It passed through the left nasopharynx into the oropharynx. The hypopharynx was identified. The hypopharyngeal structures appeared normal including anterior commissure, true cords, false cords, arytenoids, piriform sinuses, right and left, vallecula. After topicalization of the glottic opening, the trachea pushed through the glottic opening into the trachea. The trachea itself appeared normal. In the distal trachea, on the tracheal rasta, there were some pale white structures, which likely represent broncholithiasis. There was 1 directly in the center of the tracheal rasta. There were some other areas, that were above and to the right of the tracheal rasta. Of note was the fact that the patient had significant bleeding during the procedure. The bleeding was slow, oozing. There was no active bleeding or active site that was bleeding. The mucosa was somewhat friable. There were some erythema and hyperemia of the mucosa. The right upper lobe and its 3 segments, right middle lobe and its 2 segments, right lower lobe and its 5 segments, the left upper lobe proper and its 2 segments, the lingula and its 2 segments, and left lower lobe and its 4 segments were all evaluated. There was no definite mass or tumor. There was no active bleeding. The bleeding was morbid and loose. Prior to removing the bronchoscope, the bleeding had subsided. The bronchoscope was wedged into the right lower lobe and we did a BAL. Pictures were taken of the broncholytic stones. There was no immediate complication. The patient tolerated the procedure well. The bronchoscope was withdrawn. The patient will be recovered. MMODL / IJN: [id number] /
[2023-04-20 04:16] LABS: Appearance,BF Blood Tinged (Clear); RBC, Body Fluid 5115 /UL (0-2000)
[2023-04-20 09:27] LABS: Nucleated Cells, Body Fluid 15 /UL
== END 2023-04-19 13:08 | disposition home or self-care (01) ==
LOC: ORWHC2ENDO 11:02
PROVIDERS: ATTEND Internal Medicine Critical Care Medicine
DX: R04.2 Hemoptysis (principal); J98.09 Other diseases of bronchus, not elsewhere classified; K21.9 Gastro-esophageal reflux disease without esophagitis; Z88.0 Allergy status to penicillin; Z88.1 Allergy status to other antibiotic agents; Z79.899 Other long term (current) drug therapy
CPT/HCPCS: 81025; 88108; 88305; 89050; 87070; 87205; 87116; 87102; 87206; 31624; J2250; J0461; J2001; J3010; J2704

== ENCOUNTER 2023-04-28 22:31 | Emergency (ER) | payer OTHER ==
[2023-04-28 23:11] VITALS: TEMP 98
[2023-04-29 01:07] LABS: Basophils # (A) 0.1 k/uL (0-0.2); Basophils % (A) 1 %; Eosinophils # (A) 0.3 k/uL (0-0.7); Eosinophils % (A) 3 %; HGB 13.6 gm/dL (11.4-16.0); Lymphocytes # (A) 2.7 k/uL (1.0-4.8); Lymphocytes % (A) 26 %; MCH 27.8 pg (25.0-35.0); MCHC 33.2 g/dL (31.0-37.0); MCV 83.9 fL (80.0-100.0); Mean Platelet Volume 7.6; Monocytes # (A) 0.6 k/uL (0-1.0); Monocytes % (A) 5 %; Neutrophils # (A) 6.8 k/uL (1.3-7.7); Neutrophils % (A) 64 %; Platelet Count 352 k/uL (150-450); RBC 4.89 m/uL (3.80-5.40); RDW 15.7 % (11.5-15.5); WBC 10.5 k/uL (3.8-10.6)
[2023-04-29 01:30] LABS: Partial Thromboplastin Time 25.2 sec (22.0-30.0); Prothrombin Time 10.6 sec (10.0-12.5)
[2023-04-29 01:44] LABS: ALT 21 U/L (4-34); AST 22 U/L (14-36); African American GFR (CKD) >90 (>60 ml/min/1.73 sqM); Albumin 4.2 g/dL (3.5-5.0); Alkaline Phosphatase 97 U/L (38-126); Anion Gap 12 mmol/L; Blood Urea Nitrogen 12 mg/dL (7-17); Calcium 9.3 mg/dL (8.4-10.2); Carbon Dioxide 23 mmol/L (22-30); Chloride 104 mmol/L (98-107); Glucose 112 mg/dL (74-99); Non-African American GFR(CKD) >90 (>60 ml/min/1.73 sqM); Potassium 3.6 mmol/L (3.5-5.1); Sodium 139 mmol/L (137-145); Total Bilirubin 0.5 mg/dL (0.2-1.3); Total Protein 7.3 g/dL (6.3-8.2)
--- NOTE | 2023-04-29 03:38 | XR ---
EXAM: XR Chest, 2 Views CLINICAL HISTORY: ITS.REASON XR Reason: cough TECHNIQUE: Frontal and lateral views of the chest. COMPARISON: Chest radiograph on 03/01/2023 FINDINGS: Hardware: None. Lungs/pleura: Right lower lobe opacity. Possible trace right pleural effusion. Heart/mediastinum: Borderline size of cardiac silhouette. Soft tissues: Unremarkable. Bones: No acute fracture. Upper abdomen: Normal. IMPRESSION: Right lower lobe opacity is concerning for pneumonia. Possible trace right pleural effusion.
[2023-04-29] MEDS ORDERED: AZITHROMYCIN 500 MG in SODIUM CHLORIDE 0.9% 250 ML IVPB STA (03:47)
--- NOTE | 2023-04-29 04:35 | ED ---
SOB HPI - General Chief Complaint: Shortness of Breath Stated Complaint: Coughing up blood Time Seen by Provider: 04/29/23 00:05 Source: patient Mode of arrival: ambulatory Limitations: no limitations - History of Present Illness Initial Comments: This patient is a 32-year-old woman who presents to have evaluation for hemoptysis. The patient states that she has had problems with chronic cough going back probably about 6 months. She has seen pulmonology but states that they were not able to totally of the exact cause. She had an increase in the ba seline cough today and then around noon noticed that she was bringing up a small amount of blood with each cough. She has not noted fevers. No chest pain. MD Complaint: shortness of breath, cough -: hour(s) Severity: mild Quality: dull Consistency: intermittent Improves With: nothing Worsens With: coughing Known History Of: other Associated Symptoms: cough, hemoptysis Treatments Prior to Arrival: none - Related Data Home Oxygen Therapy: No Home Medications Medication Instructions Recorded Confirmed Sertraline [Zoloft] 150 mg PO HS 01/23/23 04/19/23 Albuterol Sulfate [Albuterol 1 puff PO Q4H PRN 01/29/23 04/19/23 Sulfate Hfa] Pantoprazole [Protonix] 40 mg PO HS 04/18/23 04/19/23 Previous Rx's Medication Instructions Recorded Azithromycin [Zithromax] 0 mg PO DIRECTED #6 tab 04/29/23 Allergies Allergy/AdvReac Type Severity Reaction Status Date / Time amoxicillin Allergy Rash/Hives Verified 04/28/23 22:50 cefuroxime [From Ceftin] Allergy Rash/Hives Verified 04/28/23 22:50 ciprofloxacin [From Cipro] Allergy Rash/Hives Verified 04/28/23 22:50 clindamycin Allergy Rash/Hives Verified 04/28/23 22:50 Review of Systems ROS Statement: Those systems with pertinent positive or pertinent negative responses have been documented in the HPI. ROS Other: All systems not noted in ROS Statement are negative. Constitutional: Denies: fever, chills, weakness Respiratory: Reports: cough, hemoptysis. Denies: dyspnea, wheezes Cardiovascular: Denies: chest pain, palpitations, orthopnea, edema, syncope Gastrointestinal: Denies: abdominal pain, nausea, vomiting, diarrhea Genitourinary: Denies: dysuria, hematuria Musculoskeletal: Denies: back pain Skin: Denies: rash Neurological: Denies: headache, weakness Past Medical History Past Medical History: GERD/Reflux, Pulmonary Embolus (PE) Additional Past Medical History / Comment(s): Coughing up blood since January 2023, before she had Covid. Hx Covid X3. Low iron. Thyroid nodule. History of Any Multi-Drug Resistant Organisms: None Reported Past Surgical History: Section Additional Past Surgical History / Comment(s): Cyst removed from hand. Past Anesthesia/Blood Transfusion Reactions: No Reported Reaction, Motion Sickness Past Psychological History: Depression Smoking Status: Never smoker Past Alcohol Use History: None Reported Past Drug Use History: None Reported - Past Family History Mother Family Medical History: Diabetes Mellitus, GERD/Reflux General Exam Limitations: no limitations General appearance: alert, in no apparent distress Head exam: Present: atraumatic, normocephalic Eye exam: Present: normal appearance. Absent: scleral icterus, conjunctival injection Respiratory exam: Present: rales (Right base). Absent: respiratory distress, wheezes, rhonchi, stridor, chest wall tenderness, accessory muscle use Cardiovascular Exam: Present: regular rate, normal rhythm, normal heart sounds. Absent: systolic murmur, diastolic murmur, rubs, gallop GI/Abdominal exam: Present: soft. Absent: distended, tenderness, guarding, rebound, rigid, mass Extremities exam: Present: normal inspection, normal capillary refill. Absent: pedal edema, calf tenderness Back exam: Present: normal inspection. Absent: CVA tenderness (R), CVA tenderness (L) Neurological exam: Present: alert Skin exam: Present: warm, dry, intact, normal color. Absent: rash Course Vital Signs 04/28/23 04/29/23 22:46 06:09 Temperature 98 F Pulse Rate 93 74 Respiratory 20 18 Rate Blood Pressure 145/95 128/76 O2 Sat by Pulse 98 99 Oximetry Medical Decision Making - Medical Decision Making The patient had chest x-ray which I interpreted to show right lower infiltrate. No pneumothorax. Was pt. sent in by a medical professional or institution (, PA, ROOMS DIRECTOR, urgent care, hospital, or halfway...) When possible be specific @ -[No] Did you speak to anyone other than the patient for history (EMS, parent, family, police, friend...)? What history was obtained from this source @ -[No] Did you review nursing and triage notes (agree or disagree)? Why? @ -[I reviewed and agree with nursing and triage notes] Were old charts reviewed (outside hosp., previous admission, EMS record, old EKG, old radiological studies, urgent care reports/EKG's, halfway records)? Report findings @ -[No old charts were reviewed] Differential Diagnosis (chest pain, altered mental status, abdominal pain women, abdominal pain men, vaginal bleeding, weakness, fever, dyspnea, syncope, headache, dizziness, GI bleed, back pain, seizure, CVA, palpatations, mental health, musculoskeletal)? @ -[Differential Dyspnea: Coronary syndrome, arrhythmia, tamponade, asthma, COPD, pulmonary embolism, pneumonia, pneumothorax, pulmonary effusion, anaphylaxis, diabetic ketoacidosis, flailed chest, pulmonary contusion, diaphragmatic rupture, anemia, neuromuscular, this is not meant to be an all-inclusive list. EKG interpreted by me (3pts min.). @ -[As above] X-rays interpreted by me (1pt min.). @ -[I interpreted as above CT interpreted by me (1pt min.). @ -[None done] U/S interpreted by me (1pt. min.). @ -[None done] What testing was considered but not performed or refused? (CT, X-rays, U/S, labs)? Why? @ -[None] What meds were considered but not given or refused? Why? @ -[None] Did you discuss the management of the patient with other professionals (professionals i.e. , PA, ROOMS DIRECTOR, lab, RT, psych nurse, social services technician, platen press feeder, teacher, juvenile officer, home health care case manager)? Give summary @ -[No] Was smoking cessation discussed for >3mins.? @ -[No] Was critical care preformed (if so, how long)? @ -[No] Were there social determinants of health that impacted care today? How? (Homelessness, low income, unemployed, alcoholism, drug addiction, transportation, low edu. Level, literacy, decrease access to med. care, long term, rehab)? @ -[No] Was there de-escalation of care discussed even if they declined (Discuss DNR or withdrawal of care, Hospice)? DNR status @ -[No] What co-morbidities impacted this encounter? (DM, HTN, Smoking, COPD, CAD, Cancer, CVA, ARF, Chemo, Hep., AIDS, mental health diagnosis, sleep apnea, morbid obesity)? @ -[None] Was patient admitted / discharged? Hospital course, mention meds given and route, prescriptions, significant lab abnormalities, going to OR and other pertinent info. @ -[Patient is 32-year-old woman presenting to have evaluation for hemoptysis. Exam and x-ray consistent with right lower infiltrate and the patient is started on antibiotics for pneumonia. She does see the tea taster and will follow. She is stable for further outpatient care at this point. Undiagnosed new problem with uncertain prognosis? @ -[No] Drug Therapy requiring intensive monitoring for toxicity (Heparin, Nitro, Insulin, Cardizem)? @ -[No] Were any procedures done? @ -[No] Diagnosis/symptom? @ -[Acute pneumonia Recurrent hemoptysis Acute, or Chronic, or Acute on Chronic? @ -[Acute Uncomplicated (without systemic symptoms) or Complicated (systemic symptoms)? @ -[Uncomplicated Side effects of treatment? @ -[No] Exacerbation, Progression, or Severe Exacerbation? @ -[No] Poses a threat to life or bodily function? How? (Chest pain, USA, AR, pneumonia, PE, COPD, DKA, ARF, appy, cholecystitis, CVA, Diverticulitis, Homicidal, Suicidal, threat to staff... and all critical care pts) @ -[No] - Lab Data Result diagrams: 04/29/23 00:55 04/29/23 00:55 Lab Results 04/29/23 04/29/23 04/29/23 Range/Units 00:55 00:55 00:55 WBC 10.5 (3.8-10.6) k/uL RBC 4.89 (3.80-5.40) m/uL Hgb 13.6 (11.4-16.0) gm/dL Hct 41.0 (34.0-46.0) % MCV 83.9 (80.0-100.0) fL MCH 27.8 (25.0-35.0) pg MCHC 33.2 (31.0-37.0) g/dL RDW 15.7 H (11.5-15.5) % Plt Count 352 (150-450) k/uL MPV 7.6 Neutrophils % 64 % Lymphocytes % 26 % Monocytes % 5 % Eosinophils % 3 % Basophils % 1 % Neutrophils # 6.8 (1.3-7.7) k/uL Lymphocytes # 2.7 (1.0-4.8) k/uL Monocytes # 0.6 (0-1.0) k/uL Eosinophils # 0.3 (0-0.7) k/uL Basophils # 0.1 (0-0.2) k/uL PT 10.6 (10.0-12.5) sec INR 1.0 (<1.2) APTT 25.2 (22.0-30.0) sec Sodium 139 (137-145) mmol/L Potassium 3.6 (3.5-5.1) mmol/L Chloride 104 (98-107) mmol/L Carbon Dioxide 23 (22-30) mmol/L Anion Gap 12 mmol/L BUN 12 (7-17) mg/dL Creatinine 0.63 (0.52-1.04) mg/dL Est GFR (CKD-EPI)AfAm >90 (>60 ml/min/1.73 sqM) Est GFR (CKD-EPI)NonAf >90 (>60 ml/min/1.73 sqM) Glucose 112 H (74-99) mg/dL Calcium 9.3 (8.4-10.2) mg/dL Total Bilirubin 0.5 (0.2-1.3) mg/dL AST 22 (14-36) U/L ALT 21 (4-34) U/L Alkaline Phosphatase 97 (38-126) U/L Total Protein 7.3 (6.3-8.2) g/dL Albumin 4.2 (3.5-5.0) g/dL Disposition Clinical Impression: Pneumonia Disposition: HOME SELF-CARE Condition: Fair Instructions (If sedation given, give patient instructions): Pneumonia (ED) Prescriptions: Azithromycin [Zithromax] 0 mg PO DIRECTED #6 tab Is patient prescribed a controlled substance at d/c from ED?: No Referrals: Adan Quezada MD [Primary Care Provider] - 1-2 days
[2023-04-29 06:14] VITALS: BP 128/76; PULSE 74; RESP 18
== END 2023-04-29 06:10 | disposition home or self-care (01) ==
LOC: EC 22:31
DX: J18.9 Pneumonia, unspecified organism (principal); K21.9 Gastro-esophageal reflux disease without esophagitis; Z79.899 Other long term (current) drug therapy; Z88.0 Allergy status to penicillin; Z88.1 Allergy status to other antibiotic agents; Z88.8 Allergy status to other drugs, medicaments and biological substances
CPT/HCPCS: 36415; 80053; 85025; 85610; 85730; 71046; 99285; 96365; J0456

== ENCOUNTER → 2023-07-26 | Outpatient (CLI) | payer BC, OTHER ==
--- NOTE | 2023-07-26 14:44 | CT ---
Exam: CT Chest with contrast. Date: 07/26/2023. Comparison: 01/23/2023. History: Hemoptysis. Technique: CT examination of the chest was performed following the intravenous administration of 100 mL of Isovue-300. Coronal and sagittal reformats were performed. CT dose lowering techniques were us ed, to include: automated exposure control, adjustment for patient size, and/or use of iterative brent nstruction. FINDINGS: Mediastinum and Sara: There are enlarged mediastinal and hilar lymph nodes with areas of calcificatio n. This would be favored to represent granulomatous disease. It is conceivable that one of these area s may be eroding into a portion of the bronchus causing hemoptysis. Malignancy would still be in the differential diagnosis. Definitive erosive changes are not seen, however these are surrounding the br onchi bilaterally in the central aspects of the lung. There is a 3.5 cm nodule in the right thyroid l obe. Pleural and Pericardial spaces: There are no pleural or pericardial effusions. Upper Abdomen: There is diffuse decreased attenuation of the liver which is compatible fatty infiltra tion. Cardiovascular: The thoracic aorta is normal in size without evidence of aneurysm or dissection. Pulmonary Artery: There are no central pulmonary arterial abnormalities. The examination was not per formed to evaluate for pulmonary embolism. Lung Parenchyma and Airways: There are scattered bands of opacity seen within the right lung which ar e likely atelectasis or scarring. There is a calcified granuloma within the left lower lobe. The left lung otherwise appears clear. Bones: No fracture or aggressive osseous lesion. IMPRESSION: 1. Mediastinal and hilar adenopathy with areas of calcification is favored to represent granulomatous disease, however malignancy would still be in the differential diagnosis. It is conceivable that luz marina e of these lymph nodes are areas of calcification may potentially be eroding into a bronchus at some point, however this is not definitively seen and could be a cause of hemoptysis. Pulmonary consultati on recommended. This does not appear significantly changed since the previous examination. 2. Small right pleural effusion and pleural thickening. This is similar to the previous examination. 3. Hepatic steatosis. 4. Right thyroid nodule. Thyroid ultrasound recommended.
== END | disposition home or self-care (01) ==
LOC: RADCTMAIN 13:45
PROVIDERS: ATTEND Internal Medicine Critical Care Medicine
DX: J90 Pleural effusion, not elsewhere classified (principal); J92.9 Pleural plaque without asbestos; K76.0 Fatty (change of) liver, not elsewhere classified; E04.1 Nontoxic single thyroid nodule; I89.8 Other specified noninfective disorders of lymphatic vessels and lymph nodes; R04.2 Hemoptysis; R91.8 Other nonspecific abnormal finding of lung field
CPT/HCPCS: 71260; Q9967

== ENCOUNTER 2023-09-28 23:56 | Emergency (ER) | payer OTHER ==
[2023-09-29 00:57] VITALS: TEMP 98.3
--- NOTE | 2023-09-29 01:46 | ED ---
Back Pain HPI - General Chief Complaint: Back Pain/Injury Stated Complaint: coughing up blood Time Seen by Provider: 09/29/23 00:22 Source: patient Limitations: no limitations - History of Present Illness Initial Comments: 33-year-old female presenting to the ED with a chief complaint of low back pain. Patient states that she has chronic hemoptysis and follows with Dr. Mckinnon for this. Noted an episode of cough today and reports that she coughed so hard that she "threw her back out". Reported small amounts of blood. Denies saddle anesthesia or incontinence. No saddle anesthesia. No other injuries at this time. No other complaints. - Related Data Home Medications Medication Instructions Recorded Confirmed Sertraline [Zoloft] 150 mg PO HS 01/23/23 04/19/23 Albuterol Sulfate [Albuterol 1 puff PO Q4H PRN 01/29/23 04/19/23 Sulfate Hfa] Pantoprazole [Protonix] 40 mg PO HS 04/18/23 04/19/23 Previous Rx's Medication Instructions Recorded Azithromycin [Zithromax] 0 mg PO DIRECTED #6 tab 04/29/23 Allergies Allergy/AdvReac Type Severity Reaction Status Date / Time amoxicillin Allergy Rash/Hives Verified 09/29/23 00:09 cefuroxime [From Ceftin] Allergy Rash/Hives Verified 09/29/23 00:09 ciprofloxacin [From Cipro] Allergy Rash/Hives Verified 09/29/23 00:09 clindamycin Allergy Rash/Hives Verified 09/29/23 00:09 Review of Systems ROS Statement: Those systems with pertinent positive or pertinent negative responses have been documented in the HPI. ROS Other: All systems not noted in ROS Statement are negative. Past Medical History Past Medical History: GERD/Reflux, Pulmonary Embolus (PE) Additional Past Medical History / Comment(s): Coughing up blood since January 2023, before she had Covid. Hx Covid X3. Low iron. Thyroid nodule. History of Any Multi-Drug Resistant Organisms: None Reported Past Surgical History: Section Additional Past Surgical History / Comment(s): Cyst removed from hand. Past Anesthesia/Blood Transfusion Reactions: No Reported Reaction, Motion Sickness Past Psychological History: Depression Smoking Status: Never smoker Past Alcohol Use History: None Reported Past Drug Use History: None Reported - Past Family History Mother Family Medical History: Diabetes Mellitus, GERD/Reflux General Exam Limitations: no limitations General appearance: alert, in no apparent distress Eye exam: Present: normal appearance Neck exam: Present: normal inspection Respiratory exam: Present: normal lung sounds bilaterally Cardiovascular Exam: Present: regular rate GI/Abdominal exam: Present: soft, normal bowel sounds. Absent: distended, tenderness, guarding, rebound, rigid Extremities exam: Present: normal inspection Back exam: Present: other (No midline spinal tenderness to palpation.) Neurological exam: Present: alert, oriented X3 Skin exam: Present: warm, dry Course Vital Signs 09/29/23 00:09 Temperature 98.3 F Pulse Rate 85 Respiratory 16 Rate Blood Pressure 162/102 O2 Sat by Pulse 96 Oximetry Medical Decision Making - Medical Decision Making Was pt. sent in by a medical professional or institution ([facility] Hughes, [facility], urgent care, hospital, or group home...) When possible be specific @ -No Did you speak to anyone other than the patient for history (EMS, parent, family, police, friend...)? What history was obtained from this source @ -No Did you review nursing and triage notes (agree or disagree)? Why? @ -I reviewed and agree with nursing and triage notes Were old charts reviewed (outside hosp., previous admission, EMS record, old EKG, old radiological studies, urgent care reports/EKG's, group home records)? Report findings @ -No old charts were reviewed Differential Diagnosis (chest pain, altered mental status, abdominal pain women, abdominal pain men, vaginal bleeding, weakness, fever, dyspnea, syncope, headache, dizziness, GI bleed, back pain, seizure, CVA, palpatations, mental health, musculoskeletal)? @ -Differential Back Pain: Strain, zoster, cauda equina syndrome, epidural abscess, vertebral osteomyelitis, discitis, fracture, subluxation, disc herniation, DJD, spinal stenosis, dissection, AAA, pancreatitis, peptic ulcer disease, pyelonephritis, kidney stone, this is not meant to be an all-inclusive list. EKG interpreted by me (3pts min.). @ -None X-rays interpreted by me (1pt min.). @ -Chest x-ray interpreted me which revealed no evidence of acute finding Lumbar x-ray interpreted me which revealed no evidence of acute finding. CT interpreted by me (1pt min.). @ -None done U/S interpreted by me (1pt. min.). @ -None done What testing was considered but not performed or refused? (CT, X-rays, U/S, labs)? Why? @ -None What meds were considered but not given or refused? Why? @ -Patient was offered analgesia however declined. Did you discuss the management of the patient with other professionals (professionals i.e. Dr., PA, [employer] SPRINKLER, lab, RT, psych nurse, social work administrator, environmental emergencies assistant, teacher, promotions officer, rn field case manager)? Give summary @ -No Was smoking cessation discussed for >3mins.? @ -No Was critical care preformed (if so, how long)? @ -No Were there social determinants of health that impacted care today? How? (Homelessness, low income, unemployed, alcoholism, drug addiction, transportation, low edu. Level, literacy, decrease access to med. care, fpc, rehab)? @ -No Was there de-escalation of care discussed even if they declined (Discuss DNR or withdrawal of care, Hospice)? DNR status @ -No What co-morbidities impacted this encounter? (DM, HTN, Smoking, COPD, CAD, Cancer, CVA, ARF, Chemo, Hep., AIDS, mental health diagnosis, sleep apnea, morbid obesity)? @ -None Was patient admitted / discharged? Hospital course, mention meds given and route, prescriptions, significant lab abnormalities, going to OR and other pertinent info. @ -Discharge 33-year-old female who has ongoing complaints of hemoptysis which is a chronic issue, follows with Dr. Mckinnon, presenting to the ED with complaints of low back pain. Patient reports episode where she coughed so hard she strained her lower back. Reports taking ibuprofen at home with improvement of pain. No saddle anesthesia or incontinence. Chest x-ray and lumbar x-ray reviewed which revealed no evidence of acute finding. Symptoms likely secondary to muscle strain. Discharged home in stable condition. Advise close follow-up with her PCP and her supervisor claims. Undiagnosed new problem with uncertain prognosis? @ -No Drug Therapy requiring intensive monitoring for toxicity (Heparin, Nitro, Insulin, Cardizem)? @ -No Were any procedures done? @ -No Diagnosis/symptom? @ -Low back pain, hemoptysis Acute, or Chronic, or Acute on Chronic? @ -Acute, acute on chronic Uncomplicated (without systemic symptoms) or Complicated (systemic symptoms)? @ -Complicated Side effects of treatment? @ -No Exacerbation, Progression, or Severe Exacerbation? @ -No Poses a threat to life or bodily function? How? (Chest pain, [place], [place], pneumonia, PE, COPD, DKA, ARF, appy, cholecystitis, CVA, Diverticulitis, Homicidal, Suicidal, threat to staff... and all critical care pts) @ -Unlikely at this time Disposition Clinical Impression: Back pain Disposition: HOME SELF-CARE Condition: Good Instructions (If sedation given, give patient instructions): Acute Low Back Pain (ED) Additional Instructions: Please return to the Emergency Department if symptoms worsen or any other concerns. Please follow-up with your PCP and supervisor claims. Is patient prescribed a controlled substance at d/c from ED?: No Referrals: Elisabeth Martines DO [Primary Care Provider] - 1-2 days Time of Disposition: 03:20
--- NOTE | 2023-09-29 02:19 | XR ---
EXAM: XR Lumbosacral Spine, 2 or 3 Views CLINICAL HISTORY: ITS.REASON XR Reason: low back injury after episode of hemoptysis TECHNIQUE: Frontal and lateral views of the lumbar spine and sacrum. COMPARISON: No relevant prior studies available. FINDINGS: Vertebrae: No acute fracture. Normal sagittal alignment. Dextroscoliosis. Disc spaces: No significant narrowing. Soft tissues: Unremarkable. IMPRESSION: No acute findings.
--- NOTE | 2023-09-29 03:04 | XR ---
EXAM: XR Chest, 2 Views CLINICAL HISTORY: ITS.REASON XR Reason: hemoptysis TECHNIQUE: Frontal and lateral views of the chest. COMPARISON: No relevant prior studies available. IMPRESSION: Cardiomegaly. Slightly prominent interstitial markings. Elevated right hemidiaphragm
[2023-09-29 04:02] VITALS: BP 137/96; PULSE 92; RESP 15
== END 2023-09-29 03:32 | disposition home or self-care (01) ==
LOC: EC 23:56
DX: M54.50 Low back pain, unspecified (principal); R04.2 Hemoptysis; Z88.0 Allergy status to penicillin; Z88.1 Allergy status to other antibiotic agents; Z88.8 Allergy status to other drugs, medicaments and biological substances
CPT/HCPCS: 71046; 72100; 99283

== ENCOUNTER 2023-11-09 13:18 | Emergency (ER) | payer BC, OTHER ==
--- NOTE | 2023-11-09 13:45 | ED ---
Recheck HPI - General Source: patient, RN notes reviewed Mode of arrival: ambulatory Limitations: no limitations <Georgette Fang - Last Filed: 11/09/23 13:43> <Jonah Lay - Last Filed: 11/09/23 16:31> - General Chief Complaint: Recheck/Abnormal Lab/Rx Stated Complaint: Coughing up blood Time Seen by Provider: 11/09/23 13:43 - History of Present Illness Initial Comments: Quick [id number] female presenting with hemoptysis x 3 days. States she has been coughing up blood since January 2023. She follows closely with Dr. Mckinnon who told her she had broncholithiasis which is causing the intermittent hemoptysis. She states over the past few days she has had several episodes of coughing up about 2 tablespoons of blood. Denies chest pain, shortness of breath, fevers, chills. (Georgette Fang) 33-year-old female with recurrent hemoptysis presenting for evaluation after 3 days of hemoptysis. She does have history of recurrent hemoptysis and has had multiple bronchoscopies. Patient states she had 3 episodes today and had had several episodes in the preceding days. No fever. No URI symptoms. She does have right lateral chest pain. (Jonah Lay) - Related Data Home Medications Medication Instructions Recorded Confirmed Sertraline [Zoloft] 150 mg PO HS 01/23/23 04/19/23 Albuterol Sulfate [Albuterol 1 puff PO Q4H PRN 01/29/23 04/19/23 Sulfate Hfa] Pantoprazole [Protonix] 40 mg PO HS 04/18/23 04/19/23 Previous Rx's Medication Instructions Recorded Azithromycin [Zithromax] 0 mg PO DIRECTED #6 tab 04/29/23 Sulfamethox-Tmp 800-160Mg [Bactrim 1 tab PO Q12HR 10 Days #20 tab 11/09/23 DS 800-160 mg] Allergies Allergy/AdvReac Type Severity Reaction Status Date / Time amoxicillin Allergy Rash/Hives Verified 11/09/23 13:34 cefuroxime [From Ceftin] Allergy Rash/Hives Verified 11/09/23 13:34 ciprofloxacin [From Cipro] Allergy Rash/Hives Verified 11/09/23 13:34 clindamycin Allergy Rash/Hives Verified 11/09/23 13:34 Review of Systems ROS Other: All systems not noted in ROS Statement are negative. <Georgette Fang - Last Filed: 11/09/23 13:43> ROS Other: All systems not noted in ROS Statement are negative. <Jonah Lay - Last Filed: 11/09/23 16:31> ROS Statement: Those systems with pertinent positive or pertinent negative responses have been documented in the HPI. Past Medical History Past Medical History: GERD/Reflux, Pulmonary Embolus (PE) Additional Past Medical History / Comment(s): Coughing up blood since January 2023, before she had Covid. Hx Covid X3. Low iron. Thyroid nodule. History of Any Multi-Drug Resistant Organisms: None Reported Past Surgical History: Section Additional Past Surgical History / Comment(s): Cyst removed from hand. Past Anesthesia/Blood Transfusion Reactions: No Reported Reaction, Motion Sickness Past Psychological History: Depression Smoking Status: Never smoker Past Alcohol Use History: None Reported Past Drug Use History: None Reported - Past Family History Mother Family Medical History: Diabetes Mellitus, GERD/Reflux <Georgette Fang - Last Filed: 11/09/23 13:43> General Exam Limitations: no limitations <Georgette Fang - Last Filed: 11/09/23 13:43> General appearance: alert, in no apparent distress Head exam: Present: atraumatic, normocephalic Eye exam: Present: normal appearance, PERRL ENT exam: Present: normal exam Neck exam: Present: normal inspection Respiratory exam: Present: rhonchi (Right lower lung field). Absent: respiratory distress, wheezes Cardiovascular Exam: Present: normal rhythm, tachycardia GI/Abdominal exam: Present: soft. Absent: distended, tenderness, guarding Extremities exam: Present: normal inspection, normal capillary refill. Absent: pedal edema, calf tenderness Neurological exam: Present: alert, oriented X3, CN II-XII intact. Absent: motor sensory deficit Psychiatric exam: Present: normal affect, normal mood Skin exam: Present: warm, dry, intact. Absent: cyanosis, diaphoretic <Jonah Lay - Last Filed: 11/09/23 16:31> - General Exam Comments Initial Comments: Visual Physical Exam Vital signs reviewed General: Well-appearing, nontoxic, no acute distress. Head: Normocephalic, atraumatic Eyes: PERRLA, EOMI ENT: Airway patent Chest: Nonlabored breathing Skin: No visual rash, normal skin tone Neuro: Alert and oriented 3 Musculoskeletal: No gross abnormalities (Georgette Fang) Course Vital Signs 11/09/23 11/09/23 13:32 15:57 Temperature 98 F Pulse Rate 118 H 95 Respiratory 20 18 Rate Blood Pressure 143/88 188/112 O2 Sat by Pulse 99 95 Oximetry Medical Decision Making <Georgette Fang - Last Filed: 11/09/23 13:43> - Lab Data Result diagrams: 11/09/23 14:13 11/09/23 14:13 <Jonah Lay - Last Filed: 11/09/23 16:31> - Medical Decision Making I completed the quick note portion of this chart signed Georgette Fang PA-C (Georgette Fang) Was pt. sent in by a medical professional or institution ([facility], GAMING TABLE OPERATOR, urgent care, hospital, or retirement...) When possible be specific @ -No Did you speak to anyone other than the patient for history (EMS, parent, family, police, friend...)? What history was obtained from this source @ -No Did you review nursing and triage notes (agree or disagree)? Why? @ -I reviewed and agree with nursing and triage notes Were old charts reviewed (outside hosp., previous admission, EMS record, old EKG, old radiological studies, urgent care reports/EKG's, retirement records)? Report findings @ -No old charts were reviewed Differential Dyspnea: Coronary syndrome, arrhythmia, tamponade, asthma, COPD, pulmonary embolism, pneumonia, pneumothorax, pulmonary effusion, anaphylaxis, diabetic ketoacidosis, flailed chest, pulmonary contusion, diaphragmatic rupture, anemia, neuromuscular, this is not meant to be an all-inclusive list. EKG interpreted by me (3pts min.). @ -EKG: Sinus tachycardia rate of 112, TX interval 154, QRS duration 94, QTc 406 T wave inversion in lead III X-rays interpreted by me (1pt min.). @Chest x-ray showing persistent right lower lobe infiltrate CT interpreted by me (1pt min.). @ -None done U/S interpreted by me (1pt. min.). @ -None done What testing was considered but not performed or refused? (CT, X-rays, U/S, labs)? Why? @ -None What meds were considered but not given or refused? Why? @ -None Did you discuss the management of the patient with other professionals (professionals i.e. , PA, GAMING TABLE OPERATOR, lab, RT, psych nurse, social studies teacher, military lawyer, teacher, commanding officer motorized squad, upper caser)? Give summary @ -[Discussed with Dr. Hunt, covering for pulmonology recommends antibiotics and close outpatient follow-up with Dr. Mckinnon Was smoking cessation discussed for >3mins.? @ -No Was critical care preformed (if so, how long)? @ -No Were there social determinants of health that impacted care today? How? (Homelessness, low income, unemployed, alcoholism, drug addiction, transportation, low edu. Level, literacy, decrease access to med. care, half-way, rehab)? @ -No Was there de-escalation of care discussed even if they declined (Discuss DNR or withdrawal of care, Hospice)? DNR status @ -No What co-morbidities impacted this encounter? (DM, HTN, Smoking, COPD, CAD, Cancer, CVA, ARF, Chemo, Hep., AIDS, mental health diagnosis, sleep apnea, morbid obesity)? @ -Recurrent hemoptysis Was patient admitted / discharged? Hospital course, mention meds given and route, prescriptions, significant lab abnormalities, going to OR and other pertinent info. @ -[ 33-year-old female presenting for evaluation of hemoptysis. This has been an ongoing issue for this patient and she has required several bronchoscopies. Patient has stable hemoglobin at 12.8. Otherwise normal laboratory testing. I did discuss case with Dr. Gilbert avery for pulmonology and recommendation made for antibiotics and outpatient follow-up. I did inform the patient that she should return to the emergency department with worsening symptoms and follow closely with her pouch making machine operator Dr. Mckinnon. Undiagnosed new problem with uncertain prognosis? @ -No Drug Therapy requiring intensive monitoring for toxicity (Heparin, Nitro, Insulin, Cardizem)? @ -No Were any procedures done? @ -No Diagnosis/symptom? @Hemoptysis Acute, or Chronic, or Acute on Chronic? @ -Acute on chronic Uncomplicated (without systemic symptoms) or Complicated (systemic symptoms)? @ -Default Side effects of treatment? @ -No Exacerbation, Progression, or Severe Exacerbation? @ -No Poses a threat to life or bodily function? How? (Chest pain, [place], [place], pneumonia, PE, COPD, DKA, ARF, appy, cholecystitis, CVA, Diverticulitis, Homicidal, Suicidal, threat to staff... and all critical care pts) @ -Low risk at this time (Jonah Lay) - Lab Data Lab Results 11/09/23 11/09/23 Range/Units 14:13 14:13 WBC 10.9 H (3.8-10.6) k/uL RBC 4.88 (3.80-5.40) m/uL Hgb 12.8 (11.4-16.0) gm/dL Hct 40.2 (34.0-46.0) % MCV 82.5 (80.0-100.0) fL MCH 26.2 (25.0-35.0) pg MCHC 31.7 (31.0-37.0) g/dL RDW 13.7 (11.5-15.5) % Plt Count 420 (150-450) k/uL MPV 7.8 Neutrophils % 77 % Lymphocytes % 15 % Monocytes % 5 % Eosinophils % 2 % Basophils % 1 % Neutrophils # 8.4 H (1.3-7.7) k/uL Lymphocytes # 1.6 (1.0-4.8) k/uL Monocytes # 0.5 (0-1.0) k/uL Eosinophils # 0.2 (0-0.7) k/uL Basophils # 0.1 (0-0.2) k/uL Sodium 139 (137-145) mmol/L Potassium 4.0 (3.5-5.1) mmol/L Chloride 108 H (98-107) mmol/L Carbon Dioxide 23 (22-30) mmol/L Anion Gap 8 mmol/L BUN 8 (7-17) mg/dL Creatinine 0.60 (0.52-1.04) mg/dL Est GFR (CKD-EPI)AfAm >90 (>60 ml/min/1.73 sqM) Est GFR (CKD-EPI)NonAf >90 (>60 ml/min/1.73 sqM) Glucose 100 H (74-99) mg/dL Calcium 9.4 (8.4-10.2) mg/dL Total Bilirubin 0.7 (0.2-1.3) mg/dL AST 23 (14-36) U/L ALT 21 (4-34) U/L Alkaline Phosphatase 90 (38-126) U/L Total Protein 7.3 (6.3-8.2) g/dL Albumin 4.3 (3.5-5.0) g/dL Disposition <Georgette Fang - Last Filed: 11/09/23 13:43> Is patient prescribed a controlled substance at d/c from ED?: No Time of Disposition: 16:29 <Jonah Lay - Last Filed: 11/09/23 16:31> Clinical Impression: Hematemesis Disposition: HOME SELF-CARE Condition: Fair Instructions (If sedation given, give patient instructions): Coughing Up Blood (Hemoptysis) (ED) Prescriptions: Sulfamethox-Tmp 800-160Mg [Bactrim DS 800-160 mg] 1 tab PO Q12HR 10 Days #20 tab Referrals: Elisabeth Martines DO [Primary Care Provider] - 1-2 days Jonah Mckinnon DO [Doctor of Osteopathic Medicine] - 1-2 days
--- NOTE | 2023-11-09 14:22 | XR ---
EXAMINATION TYPE: XR chest 2V DATE OF EXAM: 11/09/2023 COMPARISON: 09/29/2023 HISTORY: Cough TECHNIQUE: Frontal and lateral views of the chest are obtained. FINDINGS: Increased density right lower lobe may reflect developing infiltrate. Correlate clinically progress s tudies are recommended. No evidence for pneumothorax. No pleural effusion. The cardiac silhouette size is within normal limits. The osseous structures are grossly intact. IMPRESSION: 1. Increased density right lower lobe may reflect developing infiltrate. Correlate clinically progre ss studies are recommended.
[2023-11-09 14:43] LABS: Basophils # (A) 0.1 k/uL (0-0.2); Basophils % (A) 1 %; Eosinophils # (A) 0.2 k/uL (0-0.7); Eosinophils % (A) 2 %; HCT 40.2 % (34.0-46.0); HGB 12.8 gm/dL (11.4-16.0); Lymphocytes # (A) 1.6 k/uL (1.0-4.8); Lymphocytes % (A) 15 %; MCH 26.2 pg (25.0-35.0); MCHC 31.7 g/dL (31.0-37.0); MCV 82.5 fL (80.0-100.0); Mean Platelet Volume 7.8; Monocytes # (A) 0.5 k/uL (0-1.0); Monocytes % (A) 5 %; Neutrophils # (A) 8.4 k/uL (1.3-7.7); Neutrophils % (A) 77 %; Platelet Count 420 k/uL (150-450); RBC 4.88 m/uL (3.80-5.40); RDW 13.7 % (11.5-15.5); WBC 10.9 k/uL (3.8-10.6)
[2023-11-09 14:57] LABS: ALT 21 U/L (4-34); AST 23 U/L (14-36); African American GFR (CKD) >90 (>60 ml/min/1.73 sqM); Albumin 4.3 g/dL (3.5-5.0); Alkaline Phosphatase 90 U/L (38-126); Anion Gap 8 mmol/L; Blood Urea Nitrogen 8 mg/dL (7-17); Calcium 9.4 mg/dL (8.4-10.2); Carbon Dioxide 23 mmol/L (22-30); Chloride 108 mmol/L (98-107); Glucose 100 mg/dL (74-99); Non-African American GFR(CKD) >90 (>60 ml/min/1.73 sqM); Sodium 139 mmol/L (137-145); Total Bilirubin 0.7 mg/dL (0.2-1.3); Total Protein 7.3 g/dL (6.3-8.2)
[2023-11-09 15:58] VITALS: PULSE 95
[2023-11-09 16:59] VITALS: BP 148/108; RESP 16; TEMP 98.6
== END 2023-11-09 16:59 | disposition home or self-care (01) ==
LOC: EC 13:18
DX: K92.0 Hematemesis (principal); R00.1 Bradycardia, unspecified; Z88.0 Allergy status to penicillin; Z88.1 Allergy status to other antibiotic agents; Z86.16 Personal history of COVID-19
CPT/HCPCS: 36415; 71046; 80053; 85025; 99284

== ENCOUNTER → 2023-11-23 | Day surgery (SDC) | payer OTHER ==
[2023-11-20 15:31] VITALS: BMI 45.0
[~2023-11-23] MED LIST changes: -ATROPINE SULFATE 0.4 MG/ML 1 ML VIAL IM ONE; +LIDOCAINE 1% INJ 10MG/ML (20 ML MDV) ONE; +PROPOFOL 10 MG/ML 20 ML VIAL IV ONE
[2023-11-23 07:33] VITALS: TEMP 98
[2023-11-23] MEDS: IV FLUID CONTINUATION 1,000 ML IV ONE (07:33)
[2023-11-23] MEDS: ATROPINE SULFATE 0.4 MG/ML 1 ML VIAL IM ONE (07:45)
[2023-11-23] MEDS: LACTATED RINGERS 1,000 ML IV SCH (07:46)
[2023-11-23 08:17] VITALS: RESP 16
[2023-11-23 08:37] VITALS: BP 132/85; PULSE 92
--- NOTE | 2023-11-23 08:57 | PCN ---
PROCEDURE NOTE PROCEDURE PERFORMED: Bronchoscopy, airway examination, therapeutic lavage, BAL pooled. PREOPERATIVE DIAGNOSES: Hemoptysis and bronchial lithiasis. POSTOPERATIVE DIAGNOSES: Hemoptysis and bronchial lithiasis. DESCRIPTION OF PROCEDURE: There was informed consent and universal timeout. The patient's procedure took place in room #1. TURBINE SUBASSEMBLER provided monitored anesthesia care. The coloring machine operator was Dr. Mckinnon. After the patient was sedated, the bronchoscope was inserted through the right nostril. It passed through the right nasopharynx into the oropharynx. The hypopharynx was identified. The structures appeared normal including the anterior commissure, true cords, false cords, arytenoids, piriform sinuses right and left, and vallecula. After topicalization of the glottic opening, the bronchoscope was pushed through the glottic opening into the trachea. There was a fair amount of blood throughout the trachea. It was bright red blood. There was no mass or tumor in the trachea. There was bleeding coming from both right and left lung. It was relatively mild. Once I was able to suction the blood, I was able to see the glistening white stones noted in the right mainstem and left mainstem. A small sample of pooled BAL was collected. The blood was suctioned with the aid of saline, lidocaine for topicalization, and cold saline. Most of the blood was suctioned. At this point, because I could not get any better visualization, and because the patient continued to have a small amount of bleeding, the bronchoscope was withdrawn from the airway. The patient will be recovered. There was no immediate complication. A picture was taken. The samples will be sent to the laboratory for analysis. There was no immediate complication. MMODL / IJN: [id number] /
== END ==
LOC: ORWHC2ENDO 07:08
PROVIDERS: ATTEND Internal Medicine Critical Care Medicine
DX: J98.09 Other diseases of bronchus, not elsewhere classified (principal); R04.2 Hemoptysis; I89.8 Other specified noninfective disorders of lymphatic vessels and lymph nodes; K21.9 Gastro-esophageal reflux disease without esophagitis; D50.9 Iron deficiency anemia, unspecified; F32.A Depression, unspecified; Z86.16 Personal history of COVID-19; Z87.01 Personal history of pneumonia (recurrent); Z88.0 Allergy status to penicillin; Z88.1 Allergy status to other antibiotic agents; Z79.899 Other long term (current) drug therapy
CPT/HCPCS: 81025; 88305; 31624; J0461; J2001; J2704

== ENCOUNTER 2023-11-28 13:24 | Emergency (ER) | payer OTHER ==
[2023-11-28 13:33] VITALS: RESP 18
--- NOTE | 2023-11-28 13:34 | ED ---
General Adult HPI - General Source: patient, RN notes reviewed Mode of arrival: ambulatory Limitations: no limitations <Francine Bryant - Last Filed: 11/28/23 13:32> <Jonah Lay - Last Filed: 11/28/23 16:23> - General Stated complaint: coughing blood Time Seen by Provider: 11/28/23 13:32 - History of Present Illness Initial comments: Quick note: 33-year-old female presented to ER with a chief complaint of hemoptysis. Patient states this has been an ongoing issue and is following up with Dr. Mckinnon. She had a bronchoscopy by Dr. Mckinnon on Sunday. She states since then she has been coughing up bright red blood. Denies any blood thinner use. Denies any fevers or chills. (Francine Bryant) 33 -year-old female with chronic hemoptysis, patient is status post bronchoscopy with bronchial lithiasis. Patient continues to have 1 or 2 episodes of bright red blood daily. No fever. No chest pain. (Jonah Lay) - Related Data Home Medications Medication Instructions Recorded Confirmed Sertraline [Zoloft] 150 mg PO HS 01/23/23 11/23/23 Albuterol Sulfate [Albuterol 1 puff PO Q4H PRN 01/29/23 11/23/23 Sulfate Hfa] Pantoprazole [Protonix] 40 mg PO HS 04/18/23 11/23/23 Allergies Allergy/AdvReac Type Severity Reaction Status Date / Time amoxicillin Allergy Rash/Hives Verified 11/20/23 15:02 cefuroxime [From Ceftin] Allergy Rash/Hives Verified 11/20/23 15:02 ciprofloxacin [From Cipro] Allergy Rash/Hives Verified 11/20/23 15:02 clindamycin Allergy Rash/Hives Verified 11/20/23 15:02 Review of Systems ROS Other: All systems not noted in ROS Statement are negative. <Francine Bryant - Last Filed: 11/28/23 13:32> ROS Other: All systems not noted in ROS Statement are negative. <Jonah Lay - Last Filed: 11/28/23 16:23> ROS Statement: Those systems with pertinent positive or pertinent negative responses have been documented in the HPI. Past Medical History Past Medical History: GERD/Reflux, Pulmonary Embolus (PE) Additional Past Medical History / Comment(s): Coughing up blood -LAST TIME WAS THIS MORNING, before she had Covid. Hx Covid X3. Low iron. Thyroid nodule. History of Any Multi-Drug Resistant Organisms: None Reported Past Surgical History: Section Additional Past Surgical History / Comment(s): Cyst removed from hand., BRONCHOSCOPY X5, Past Anesthesia/Blood Transfusion Reactions: No Reported Reaction, Motion Sickness Smoking Status: Never smoker - Past Family History Mother Family Medical History: Diabetes Mellitus, GERD/Reflux <Francine Bryant - Last Filed: 11/28/23 13:32> General Exam <Francine Bryant - Last Filed: 11/28/23 13:32> General appearance: alert, in no apparent distress Head exam: Present: atraumatic, normocephalic Eye exam: Present: normal appearance, PERRL Neck exam: Present: normal inspection. Absent: tenderness Respiratory exam: Present: normal lung sounds bilaterally. Absent: respiratory distress, wheezes Cardiovascular Exam: Present: regular rate, normal rhythm GI/Abdominal exam: Present: soft. Absent: distended, tenderness Neurological exam: Present: alert, oriented X3 Psychiatric exam: Present: normal affect, normal mood Skin exam: Present: warm, dry, intact <Jnoah Lay - Last Filed: 11/28/23 16:23> - General Exam Comments Initial Comments: Visual Physical Exam Vital signs reviewed General: Well-appearing, nontoxic, no acute distress. Head: Normocephalic, atraumatic Eyes: PERRLA, EOMI ENT: Airway patent Chest: Nonlabored breathing Skin: No visual rash, normal skin tone Neuro: Alert and oriented 3 Musculoskeletal: No gross abnormalities (Francine Bryant) Course Vital Signs 11/28/23 13:31 Temperature 97.6 F Pulse Rate 79 Respiratory 18 Rate Blood Pressure 145/97 O2 Sat by Pulse 98 Oximetry Medical Decision Making <Francine Bryant - Last Filed: 11/28/23 13:32> - Lab Data Result diagrams: 11/28/23 13:44 11/28/23 13:44 <Jonah Lay - Last Filed: 11/28/23 16:23> - Medical Decision Making I performed the quick note portion of this chart. Electronically signed by Francine Bryant PA-C (Francine Bryant) Was pt. sent in by a medical professional or institution ([facility], PROPERTY CUSTODIAN, urgent care, hospital, or snf...) When possible be specific @ -[No] Did you speak to anyone other than the patient for history (EMS, parent, family, police, friend...)? What history was obtained from this source @ -[No] Did you review nursing and triage notes (agree or disagree)? Why? @ -[I reviewed and agree with nursing and triage notes] Were old charts reviewed (outside hosp., previous admission, EMS record, old EKG, old radiological studies, urgent care reports/EKG's, snf records)? Report findings @ -[No old charts were reviewed] Differential Diagnosis, hemoptysis if this is secondary to bronchial lithiasis EKG interpreted by me (3pts min.). @ -[As above] X-rays interpreted by me (1pt min.). @ -Stable without acute findings CT interpreted by me (1pt min.). @ -[None done] U/S interpreted by me (1pt. min.). @ -[None done] What testing was considered but not performed or refused? (CT, X-rays, U/S, labs)? Why? @ -[None] What meds were considered but not given or refused? Why? @ -[None] Did you discuss the management of the patient with other professionals (professionals i.e. [facility] Hughes, PROPERTY CUSTODIAN, lab, RT, psych nurse, social group worker, analytical manager, teacher, unarmed security officer, geriatric case manager)? Give summary @ -Paged Dr. Mckinnon who was unavailable, I discussed case with Dr. Gilbert latif for pulmonology, recommends discharge with outpatient follow-up. Was smoking cessation discussed for >3mins.? @ -[No] Was critical care preformed (if so, how long)? @ -[No] Were there social determinants of health that impacted care today? How? (Homelessness, low income, unemployed, alcoholism, drug addiction, transportation, low edu. Level, literacy, decrease access to med. care, skilled nursing, rehab)? @ -[No] Was there de-escalation of care discussed even if they declined (Discuss DNR or withdrawal of care, Hospice)? DNR status @ -[No] What co-morbidities impacted this encounter? (DM, HTN, Smoking, COPD, CAD, Cancer, CVA, ARF, Chemo, Hep., AIDS, mental health diagnosis, sleep apnea, morbid obesity)? @ -[None] Was patient admitted / discharged? Hospital course, mention meds given and route , prescriptions, significant lab abnormalities, going to OR and other pertinent info. @ -[3-year-old female with chronic, abscesses, has continuous hemoptysis after bronchoscopy, approximately 2 teaspoons of blood daily according to the patient. Laboratory testing is stable, chest x-ray is stable. I discussed case with pulmonology who recommends continued outpatient follow-up. Stable for discharge Undiagnosed new problem with uncertain prognosis? @ -No Drug Therapy requiring intensive monitoring for toxicity (Heparin, Nitro, Insulin, Cardizem)? @ -No Were any procedures done? @ -No Diagnosis/symptom? @ -[Chronic hemoptysis Acute, or Chronic, or Acute on Chronic? @ -Chronic Uncomplicated (without systemic symptoms) or Complicated (systemic symptoms)? @ -[default Side effects of treatment? @ -No Exacerbation, Progression, or Severe Exacerbation? @ -No Poses a threat to life or bodily function? How? (Chest pain, [place], [place], pneumonia, PE, COPD, DKA, ARF, appy, cholecystitis, CVA, Diverticulitis, Homicidal, Suicidal, threat to staff... and all critical care pts) @ -No (Jonah Lay) - Lab Data Lab Results 11/28/23 11/28/23 11/28/23 Range/Units 13:44 13:44 13:44 WBC 7.6 (3.8-10.6) k/uL RBC 4.49 (3.80-5.40) m/uL Hgb 12.1 (11.4-16.0) gm/dL Hct 38.0 (34.0-46.0) % MCV 84.7 (80.0-100.0) fL MCH 27.0 (25.0-35.0) pg MCHC 31.9 (31.0-37.0) g/dL RDW 13.6 (11.5-15.5) % Plt Count 383 (150-450) k/uL MPV 7.2 Neutrophils % 70 % Lymphocytes % 20 % Monocytes % 5 % Eosinophils % 2 % Basophils % 1 % Neutrophils # 5.3 (1.3-7.7) k/uL Lymphocytes # 1.6 (1.0-4.8) k/uL Monocytes # 0.4 (0-1.0) k/uL Eosinophils # 0.2 (0-0.7) k/uL Basophils # 0.1 (0-0.2) k/uL PT 10.6 (10.0-12.5) sec INR 1.0 (<1.2) APTT 26.6 (22.0-30.0) sec Sodium 139 (137-145) mmol/L Potassium 4.4 (3.5-5.1) mmol/L Chloride 106 (98-107) mmol/L Carbon Dioxide 26 (22-30) mmol/L Anion Gap 7 mmol/L BUN 9 (7-17) mg/dL Creatinine 0.59 (0.52-1.04) mg/dL Est GFR (CKD-EPI)AfAm >90 (>60 ml/min/1.73 sqM) Est GFR (CKD-EPI)NonAf >90 (>60 ml/min/1.73 sqM) Glucose 102 H (74-99) mg/dL Calcium 9.4 (8.4-10.2) mg/dL Total Bilirubin 0.7 (0.2-1.3) mg/dL AST 30 (14-36) U/L ALT 23 (4-34) U/L Alkaline Phosphatase 78 (38-126) U/L Total Protein 7.3 (6.3-8.2) g/dL Albumin 4.2 (3.5-5.0) g/dL Disposition <Francine Bryant - Last Filed: 11/28/23 13:32> Is patient prescribed a controlled substance at d/c from ED?: No Time of Disposition: 16:23 <Jonah Lay - Last Filed: 11/28/23 16:23> Clinical Impression: Hemoptysis Disposition: HOME SELF-CARE Condition: Fair Instructions (If sedation given, give patient instructions): Coughing Up Blood (Hemoptysis) (ED) Referrals: None,Stated [Primary Care Provider] - 1-2 days Jonah Mckinnon DO [Doctor of Osteopathic Medicine] - 1-2 days
[2023-11-28 14:03] LABS: Partial Thromboplastin Time 26.6 sec (22.0-30.0); Prothrombin Time 10.6 sec (10.0-12.5)
[2023-11-28 14:10] LABS: ALT 23 U/L (4-34); AST 30 U/L (14-36); African American GFR (CKD) >90 (>60 ml/min/1.73 sqM); Albumin 4.2 g/dL (3.5-5.0); Alkaline Phosphatase 78 U/L (38-126); Anion Gap 7 mmol/L; Blood Urea Nitrogen 9 mg/dL (7-17); Calcium 9.4 mg/dL (8.4-10.2); Carbon Dioxide 26 mmol/L (22-30); Chloride 106 mmol/L (98-107); Glucose 102 mg/dL (74-99); Non-African American GFR(CKD) >90 (>60 ml/min/1.73 sqM); Potassium 4.4 mmol/L (3.5-5.1); Sodium 139 mmol/L (137-145); Total Bilirubin 0.7 mg/dL (0.2-1.3); Total Protein 7.3 g/dL (6.3-8.2)
--- NOTE | 2023-11-28 14:23 | XR ---
EXAMINATION TYPE: XR chest 2V DATE OF EXAM: 11/28/2023 2:13 PM CLINICAL INDICATION:Female, 33 years old with history of Hemoptysis; [facility] COMPARISON: Chest radiographs from 11/09/2023 TECHNIQUE: XR chest 2V Frontal view of the chest. FINDINGS: Lungs/Pleura: There is no evidence of pleural effusion, focal consolidation, or pneumothorax. Pulmonary vascularity: Unremarkable. Heart/mediastinum: Cardiomediastinal silhouette is unremarkable. Musculoskeletal: No acute osseous pathology. IMPRESSION: Similar right basilar airspace haziness compared to 11/08/2023 likely chronic scarring.
[2023-11-28 14:41] LABS: Basophils # (A) 0.1 k/uL (0-0.2); Basophils % (A) 1 %; Eosinophils # (A) 0.2 k/uL (0-0.7); Eosinophils % (A) 2 %; HGB 12.1 gm/dL (11.4-16.0); Lymphocytes # (A) 1.6 k/uL (1.0-4.8); Lymphocytes % (A) 20 %; MCHC 31.9 g/dL (31.0-37.0); MCV 84.7 fL (80.0-100.0); Mean Platelet Volume 7.2; Monocytes # (A) 0.4 k/uL (0-1.0); Monocytes % (A) 5 %; Neutrophils # (A) 5.3 k/uL (1.3-7.7); Neutrophils % (A) 70 %; Platelet Count 383 k/uL (150-450); RBC 4.49 m/uL (3.80-5.40); RDW 13.6 % (11.5-15.5); WBC 7.6 k/uL (3.8-10.6)
[2023-11-28 18:22] VITALS: BP 148/88; PULSE 85; TEMP 97.9
== END 2023-11-28 18:22 | disposition home or self-care (01) ==
LOC: EC 13:24
DX: R04.2 Hemoptysis (principal); Z88.0 Allergy status to penicillin; Z88.1 Allergy status to other antibiotic agents; Z86.16 Personal history of COVID-19
CPT/HCPCS: 36415; 71046; 80053; 85025; 85610; 85730; 99283